=== PATIENT | female | born 1960 | race Caucasian/White ===

== ENCOUNTER 2022-01-20 11:01 | Day surgery (SDC) | payer BC ==
[2022-01-16 15:53] VITALS: BMI 27.4
[~2022-01-20 11:01] MED LIST: LACTATED RINGERS 1,000 ML IV SCH; LIDOCAINE 1% (10MG/ML) FOR IV START INTRADERMA PRN
[2022-01-20 11:29] VITALS: RESP 16; TEMP 98.9
[2022-01-20] MEDS ORDERED: MIDAZOLAM 2 MG/2 ML VIAL IVP ONE (11:50)
[2022-01-20] MEDS ORDERED: LACTATED RINGERS 1,000 ML IV ONE (11:54)
[2022-01-20] MEDS ORDERED: LIDOCAINE 1% INJ 10MG/ML (20 ML MDV) ONE (11:55)
[2022-01-20] MEDS ORDERED: PROPOFOL 10 MG/ML 20 ML VIAL IV ONE (11:55)
--- NOTE | 2022-01-20 12:04 | P.GSHP ---
History of Present Illness H&P Date: 01/20/22 Chief Complaint: GERD, abdominal pain 61-year-old female known to our service. Patient with history of prior lap band placement. Patient has a complicated history including abdominoplasty last January and then recent revision 1 week ago. Apparently she was told along the wa y that she may have an infected lap band port. Apparently the port was moved during one of these surgeries. We do not have any records to refer 2. She is on Bactrim at this time. Only mild reflux occasionally. No vomiting. Still has restriction. Patient is very worried about losing her band. Past Medical History Past Medical History: GERD/Reflux, Hyperlipidemia, Hypertension History of Any Multi-Drug Resistant Organisms: None Reported Past Surgical History: Bariatric Surgery, Bowel Resection, Breast Surgery Additional Past Surgical History / Comment(s): Breast augmentation, tummy tuck. x 2. lap band 2006 Past Anesthesia/Blood Transfusion Reactions: No Reported Reaction Past Psychological History: Anxiety Smoking Status: Former smoker Past Alcohol Use History: None Reported, Rare Additional Past Alcohol Use History / Comment(s): smoked for 2 months 30 yrs ago Past Drug Use History: None Reported - Past Family History Daughter(s) Family Medical History: Cancer Additional Family Medical History / Comment(s): Breast cancer. Medications and Allergies Home Medications Medication Instructions Recorded Confirmed Type Diltiazem HCl [Cardizem] 120 mg PO HS 01/16/22 01/20/22 History Ezetimibe [Zetia] 10 mg PO DAILY 01/16/22 01/20/22 History FLUoxetine HCL [PROzac] 10 mg PO DAILY 01/16/22 01/20/22 History Famotidine [Pepcid AC] 10 mg PO DIRECTED PRN 01/16/22 01/20/22 History Metoprolol 10 mg PO HS 01/16/22 01/20/22 History Sulfamethox-Tmp 800-160Mg [Bactrim 1 tab PO Q12HR 01/16/22 01/20/22 History DS 800-160 mg] Allergies Allergy/AdvReac Type Severity Reaction Status Date / Time hydromorphone [From Dilaudid] Allergy Nausea & Verified 01/20/22 11:24 Vomiting Penicillins Allergy Anaphylaxis Verified 01/20/22 11:24 Surgical - Exam Vital Signs Temp Pulse Resp BP Pulse Ox 98.9 F 69 16 116/59 98 01/20/22 11:25 01/20/22 11:25 01/20/22 11:25 01/20/22 11:25 01/20/22 11:25 Physical exam: General: Well-developed, well-nourished HEENT: Normocephalic, sclerae nonicteric Abdomen: Recent abdominal incision sites healing nicely, port appears to have been moved inferiorly by 5-6 cm, no erythema Extremities: No edema Neuro: Alert and oriented Assessment and Plan (1) GERD (gastroesophageal reflux disease) Narrative/Plan: Will proceed with upper endoscopy at this time. Current Visit: Yes Status: Acute Code(s): K21.9 - GASTRO-ESOPHAGEAL REFLUX DISEASE WITHOUT ESOPHAGITIS SNOMED Code(s): 385029323
--- NOTE | 2022-01-20 12:11 | P.PCN ---
Date of Procedure: 01/20/22 Procedure(s) Performed: Preoperative Dx: Abdominal pain, GERD Postoperative Dx: Minimal gastritis, distal esophagitis Procedure: EGD with Bx Anesthesia: Sedation Endoscopist: Dr. Finney Specimens: Antrum, distal esophagus Endoscopic Procedure: The patient was on the endoscopy table in the left decubitus position. The Olympus gastroscope was inserted into the oropharynx and passed under direct visualization to the region of the third portion of the duodenum. From that point the scope was slowly withdrawn inspecting all surfaces carefully. There were no neoplastic inflammatory or polypoid lesions throughout the duodenum. The pylorus was widely patent. The stomach was carefully inspected. There was minimal gastritis present. A biopsy of the antrum took place to rule out H. pylori. Retroflexion revealed a normal lap band plication. No evidence of erosion or prolapse was seen. At the distal esophagus there were a few linear erosions that were non-circumferential and extended 1.5 cm above the GE junction. Biopsies were taken. The remainder the esophagus appeared normal. The patient was then taken to the recovery room in stable condition per anesthesia guidelines. Recommendations: Await biopsy results. Resume diet. We'll try to further obtain records from recent surgeries. Follow-up bariatric center.
[2022-01-20 12:32] VITALS: BP 113/72; PULSE 72
[2022-01-20] MEDS ORDERED: ONDANSETRON ODT 4 MG TAB PO ONE (12:40)
== END 2022-01-20 12:52 | disposition home or self-care (01) ==
LOC: ORWHC2ENDO 11:01
PROVIDERS: ATTEND Surgery
DX: K29.50 Unspecified chronic gastritis without bleeding (principal); K21.00 Gastro-esophageal reflux disease with esophagitis, without bleeding; E78.5 Hyperlipidemia, unspecified; I10 Essential (primary) hypertension; Z98.84 Bariatric surgery status; Z90.49 Acquired absence of other specified parts of digestive tract; Z98.890 Other specified postprocedural states; F41.9 Anxiety disorder, unspecified; Z87.891 Personal history of nicotine dependence; Z80.3 Family history of malignant neoplasm of breast; Z79.899 Other long term (current) drug therapy; Z88.5 Allergy status to narcotic agent; Z88.0 Allergy status to penicillin
CPT/HCPCS: 88305; 88312; 43239; J2250; J2001; J2704

== ENCOUNTER → 2022-05-12 | Outpatient (CLI) | payer BC ==
--- NOTE | 2022-05-12 15:09 | P.BASOAP ---
Subjective Progress Note Date: 05/12/22 Principal diagnosis: Morbid obesity Patient returns for reevaluation. She was last seen in December. Patient had an EGD performed at that time. Recently had a CAT scan showing a 6 x 5 x 1 cm fluid collection to the left of the umbilicus near her old port site. Patient says this is been there ever since her panniculectomy and may have been getting slightly larger. No fevers. Mild discomfort there. Objective - Vital Signs Vital signs: Intake & Output 05/11/22 05/12/22 05/12/22 18:59 06:59 18:59 Weight 85.275 kg - Exam Abdomen: Soft, nondistended, seroma palpable around the port site left periumbilical region, no erythema Assessment/Plan (1) Morbid obesity Narrative/Plan: 62-year-old female with abdominal wall seroma. We will aspirate the fluid at this time at the bedside. We'll send fluid for culture. Area prepped sterilely. One percent lidocaine used to numb the skin. 18-gauge needle used to aspirate 20 mL of a cloudy serous fluid. This was sent for culture. Sterile Band-Aid applied. Plan: Date: Initial Weight: Initial BMI: Current Weight: 85.275 kg Current BMI: Type of Surgery: Total Volume in Band: Previous Volume: Volume Removed: Volume Added: Band Size:
[2022-05-12 15:16] VITALS: BP 120/86; PULSE 88; TEMP 98.5; BMI 30.3
== END ==
LOC: BARWHC3 14:12
PROVIDERS: ATTEND Surgery
DX: E66.01 Morbid (severe) obesity due to excess calories (principal); K91.872 Postprocedural seroma of a digestive system organ or structure following a digestive system procedure; Z68.30 Body mass index [BMI] 30.0-30.9, adult; Z88.5 Allergy status to narcotic agent; Z88.0 Allergy status to penicillin
CPT/HCPCS: 87070; 87075; 87205; 99213

== ENCOUNTER 2022-06-02 13:47 | Inpatient (IN) | payer BC ==
[2022-06-02] MEDS ORDERED: NALOXONE 0.4 MG/ML 1 ML VIAL IV PRN (15:44)
--- NOTE | 2022-06-02 15:54 | P.GSHP ---
History of Present Illness H&P Date: 06/02/22 Chief Complaint: Abdominal wall abscess 62-year-old female was last seen a few weeks ago in the bariatric center. Patient with history of previous abdominoplasty with a revision. 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 When she was seen last visit fluid around the l ap band port was aspirated and sent for cultures. Cultures ended up showing gram-positive cocci on the anaerobic culture. She contacted the office stating that a few days ago the fluid started leaking spontaneously through a previous incision site in the infraumbilical location. Patient has discomfort there. Drainage is a cloudy yellowish fluid. No fevers. - Review of Systems Comment: The patient denies any acute changes in vision or hearing, no dysphagia or odynophagia, no chest pain or shortness of breath, no dysuria or hematuria, no headache, no runny nose, no rectal bleeding or melena, no unexplained weight loss Past Medical History Past Medical History: GERD/Reflux, Hyperlipidemia, Hypertension History of Any Multi-Drug Resistant Organisms: None Reported Past Surgical History: Bariatric Surgery, Bowel Resection, Breast Surgery Additional Past Surgical History / Comment(s): Breast augmentation, tummy tuck. x 2. lap band 2006 Past Anesthesia/Blood Transfusion Reactions: No Reported Reaction Past Psychological History: Anxiety Smoking Status: Former smoker Past Alcohol Use History: None Reported, Rare Additional Past Alcohol Use History / Comment(s): smoked for 2 months 30 yrs ago Past Drug Use History: None Reported - Past Family History Daughter(s) Family Medical History: Cancer Additional Family Medical History / Comment(s): Breast cancer. Medications and Allergies Home Medications Medication Instructions Recorded Confirmed Type Ezetimibe [Zetia] 10 mg PO DAILY 01/16/22 06/02/22 History FLUoxetine HCL [PROzac] 10 mg PO DAILY 01/16/22 06/02/22 History Famotidine [Pepcid AC] 10 mg PO DIRECTED PRN 01/16/22 06/02/22 History Metoprolol 10 mg PO HS 01/16/22 06/02/22 History Sulfamethox-Tmp 800-160Mg [Bactrim 1 tab PO Q12HR 01/16/22 06/02/22 History DS 800-160 mg] dilTIAZem HCL [Cardizem] 120 mg PO HS 01/16/22 06/02/22 History Allergies Allergy/AdvReac Type Severity Reaction Status Date / Time hydromorphone [From Dilaudid] Allergy Nausea & Verified 01/20/22 11:24 Vomiting Penicillins Allergy Anaphylaxis Verified 01/20/22 11:24 Surgical - Exam Vital Signs Temp Pulse Resp BP 97.9 F 70 16 108/67 06/02/22 14:13 06/02/22 14:13 06/02/22 14:13 06/02/22 14:13 Physical exam: General: Well-developed, well-nourished HEENT: Normocephalic, sclerae nonicteric Abdomen: Mild tenderness at the lower abdominal wall, open wound measuring 4 x 6 mm with cloudy serous fluid, mild erythema around the wound site, this is along a previous lower midline incision, the port is present in the left mid abdominal wall several inches away from the open wound site, nondistended Extremities: No edema Neuro: Alert and oriented Assessment and Plan (1) Abdominal wall abscess Narrative/Plan: 62-year-old female with infected abdominal wall seroma/abscess. Patient with presumed infection of the lap band port as well as a result of this process. I did place a call to her plastic surgeon and currently am waiting for him to return to us. In the meanwhile will admit the patient for IV antibiotics. Tentatively plan to proceed with incision and drainage infected abdominal wall abscess tomorrow. Will remove the patient's lap band port at the time possibly through that same incision or possibly will require a counterincision. The tubing for the lap band will be reduced back into the peritoneal cavity for future use. The patient is happy with the lap band and does not want a lap and removed. We discussed possibly keeping the lap band fluid in place versus emptying the band. She would prefer to keep the fluid in place. Risks of the procedure noted to include but not limited to bleeding, infection, recurrent infection, recurrent seroma, possible infection of the lap band, open wound formation, poor healing, scarring. She understands and wishes to proceed. Current Visit: Yes Status: Acute Code(s): L02.211 - CUTANEOUS ABSCESS OF ABDOMINAL WALL SNOMED Code(s): 23739423
[2022-06-02] MEDS: HEPARIN SODIUM,PORCINE/PF 5,000 UNIT/0.5 ML SYRINGE SQ SCH (17:35)
[2022-06-02] MEDS: metroNIDAZOLE-NS PMX 500 MG in SALINE 1 100ML.BAG IVPB SCH (17:58)
[2022-06-02] MEDS: HYDROcodone/APAP 5-325MG 1 EACH TAB PO PRN ×2 (18:02→22:26)
[2022-06-02 18:42] LABS: Basophils # (A) 0.1 k/uL (0-0.2); Basophils % (A) 1 %; Eosinophils # (A) 0.4 k/uL (0-0.7); Eosinophils % (A) 7 %; HCT 42.1 % (34.0-46.0); HGB 13.2 gm/dL (11.4-16.0); Lymphocytes # (A) 1.8 k/uL (1.0-4.8); Lymphocytes % (A) 34 %; MCH 27.7 pg (25.0-35.0); MCHC 31.3 g/dL (31.0-37.0); MCV 88.5 fL (80.0-100.0); Mean Platelet Volume 8.5; Monocytes # (A) 0.4 k/uL (0-1.0); Monocytes % (A) 7 %; Neutrophils # (A) 2.5 k/uL (1.3-7.7); Neutrophils % (A) 49 %; Platelet Count 270 k/uL (150-450); RBC 4.76 m/uL (3.80-5.40); RDW 14.5 % (11.5-15.5); WBC 5.1 k/uL (3.8-10.6)
[2022-06-02 18:50] LABS: ALT 19 U/L (4-34); AST 25 U/L (14-36); African American GFR (CKD) 84 (>60 ml/min/1.73 sqM); Albumin 4.1 g/dL (3.5-5.0); Albumin/Globulin Ratio 1.6; Alkaline Phosphatase 62 U/L (38-126); Anion Gap 7 mmol/L; Blood Urea Nitrogen 23 mg/dL (7-17); Calcium 9.5 mg/dL (8.4-10.2); Carbon Dioxide 28 mmol/L (22-30); Chloride 105 mmol/L (98-107); Globulin 2.6 g/dL; Glucose 99 mg/dL (74-99); Non-African American GFR(CKD) 73 (>60 ml/min/1.73 sqM); Potassium 3.9 mmol/L (3.5-5.1); Sodium 140 mmol/L (137-145); Total Bilirubin 0.2 mg/dL (0.2-1.3); Total Protein 6.7 g/dL (6.3-8.2)
[2022-06-02] MEDS: MORPHINE SULFATE 4 MG/ML SYRINGE IVP PRN (21:45)
[2022-06-02] MEDS: D5-0.45% NACL WITH KCL 20MEQ/L 1,000 ML IV SCH (22:34)
[2022-06-03] MEDS: HEPARIN SODIUM,PORCINE/PF 5,000 UNIT/0.5 ML SYRINGE SQ SCH ×4 (00:29→23:11)
[2022-06-03] MEDS: metroNIDAZOLE-NS PMX 500 MG in SALINE 1 100ML.BAG IVPB SCH ×3 (01:50→19:07)
[2022-06-03] MEDS: MORPHINE SULFATE 4 MG/ML SYRINGE IVP PRN ×4 (01:56→20:05)
[2022-06-03] MEDS: D5-0.45% NACL WITH KCL 20MEQ/L 1,000 ML IV SCH ×3 (04:50→21:56)
[2022-06-03] MEDS: HYDROcodone/APAP 5-325MG 1 EACH TAB PO PRN ×3 (06:19→23:10)
[2022-06-03] MEDS: PANTOPRAZOLE 40 MG/10 ML VIAL IV SCH (09:17)
[2022-06-03] MEDS: METOPROLOL TARTRATE 25 MG TAB PO SCH ×2 (09:17→20:06)
[2022-06-03] MEDS ORDERED: ONDANSETRON 4 MG/2 ML VIAL IVP ONE ×2 (11:16→16:30)
[2022-06-03] MEDS ORDERED: fentaNYL (PF) 50 MCG/ML 2 ML AMP IV PRN (11:16)
[2022-06-03] MEDS: ACETAMINOPHEN TAB 325 MG TAB PO PRN (12:30)
--- NOTE | 2022-06-03 13:04 | P.CONS ---
History of Present Illness - Reason for Consult Consult date: 06/03/22 - History of Present Illness This is a 62 year old female with medical history of abdominoplasty with revision and possible recurrent seroma. Patient has history of lap band in 2007 states that she has no complications. She then had a consultation with a plastic surgeon and underwent a tummy tuck which she states was complicated by nonhealing periumbical wound which was thought to be a seroma. Patient was evaluated at the bariatric center and fluid from the seroma was aspirated and sent for cultures. She has had revision of surgey with KWAKU drain and also had breast augmentation. Patient presents with leaking from previous incision site with abdominal discomfort across the lower abdomen. She reports fever and chills at home. Denies shortnes of breath, no chest pain. Denies nausea, vomiting, no diarrhea. No dysuria. She is scheduled for I and D with Dr Finney today. Additional history includes hypertension, hyperlipidemia, gastroesophageal reflux disease. She sees a medical doctor once a year for a physical, she does not know his name off hand. She takes cardizem daily and metoprolol twice a day. Patient has no white count, stable 13.2, electrolytes are within normal limits, BUN 23, creatinine 0.85. Infectious disease has been consulted, patient is started on IV cefazolin and IV metronidazole. REVIEW OF SYSTEMS: CONSTITUTIONAL: Reports fever and chills, no malaise, no fatigue. HEENT: No recent visual problems or hearing problems. Denied any sore throat. CARDIOVASCULAR: No chest pain, orthopnea, PND, no palpitations, no syncope. PULMONARY: No shortness of breath, no cough, no hemoptysis. GASTROINTESTINAL: No diarrhea, no nausea, no vomiting. Reports abdominal pain and incisional drainage. NEUROLOGICAL: No headaches, no weakness, no numbness. HEMATOLOGICAL: Denies any bleeding or petechiae. GENITOURINARY: Denies any burning micturition, frequency, or urgency. MUSCULOSKELETAL/RHEUMATOLOGICAL: Denies any joint pain, swelling, or any muscle pain. ENDOCRINE: Denies any polyuria or polydipsia. The rest of the 14-point review of systems is negative. PHYSICAL EXAMINATION: GENERAL: The patient is alert and oriented x3, not in any acute distress. Well developed, well nourished. HEENT: Pupils are round and equally reacting to light. EOMI. No scleral icterus. No conjunctival pallor. Normocephalic, atraumatic. No pharyngeal erythema. No thyromegaly. CARDIOVASCULAR: S1 and S2 present. No murmurs, rubs, or gallops. PULMONARY: Chest is clear to auscultation, no wheezing or crackles. ABDOMEN: Soft, tender, nondistended, normoactive bowel sounds. No palpable organomegaly. Surgical Incision is open and draining, red. MUSCULOSKELETAL: No joint swelling or deformity. EXTREMITIES: No cyanosis, clubbing, or pedal edema. NEUROLOGICAL: Gross neurological examination did not reveal any focal deficits. SKIN: No rashes. Assessment and plan Assessment History abdominoplasty with revision complicated by seroma and nonhealing wound History hypertension currently normotensive History hyperlipidemia Gastroesophageal reflux maintained on pepcid History Lap Band in 2006 Remote former smoker years ago GI Prophylaxis DVT Prophylaxis as per primary Full Code Plan Resume beta panda Hold cardizem Continue IV antibiotics Continue IV fluids ID consultation Patient scheduled for I and D today Thank you for this consultation. The impression and plan of care has been dictated by Margaret Edwards, Nurse Practitioner as directed. Dr. Celestino MD I have performed a history and physical examination and medical decision making of this patient, discussed the same with the dictator, and agree with the dictators assessment and plan as written, documented as a scribe. Based on total visit time, I have performed more than 50% of this visit. Past Medical History Past Medical History: GERD/Reflux, Hyperlipidemia, Hypertension History of Any Multi-Drug Resistant Organisms: None Reported Past Surgical History: Bariatric Surgery, Bowel Resection, Breast Surgery Additional Past Surgical History / Comment(s): Breast augmentation, tummy tuck. x 2. lap band 2006 Past Anesthesia/Blood Transfusion Reactions: No Reported Reaction Smoking Status: Former smoker - Past Family History Daughter(s) Family Medical History: Cancer Additional Family Medical History / Comment(s): Breast cancer. Medications and Allergies Home Medications Medication Instructions Recorded Confirmed Type Ezetimibe [Zetia] 10 mg PO HS 01/16/22 06/02/22 History dilTIAZem HCL [Cardizem] 120 mg PO HS 01/16/22 06/02/22 History FLUoxetine HCL [PROzac] 20 mg PO BID 06/02/22 06/02/22 History Famotidine [Pepcid] 20 mg PO DAILY PRN 06/02/22 06/02/22 History Metoprolol Tartrate [Lopressor] 25 mg PO BID 06/02/22 06/02/22 History Rosuvastatin [Crestor] 10 mg PO HS 06/02/22 06/02/22 History Allergies Allergy/AdvReac Type Severity Reaction Status Date / Time hydromorphone [From Dilaudid] Allergy Nausea & Verified 06/02/22 18:35 Vomiting Penicillins Allergy Anaphylaxis Verified 06/02/22 18:35 Physical Exam Vitals: Vital Signs Temp Pulse Pulse Resp BP BP Pulse Ox 06/03/22 07:31 97.7 F 67 16 114/64 99 06/03/22 02:00 97.9 F 91 16 107/73 97 06/02/22 20:10 97.9 F 66 16 109/71 97 06/02/22 20:00 66 16 06/02/22 17:51 98.2 F 75 16 126/75 97 06/02/22 14:13 97.9 F 70 16 108/67 Intake and Output 06/02/22 06/03/22 06/03/22 22:59 06:59 14:59 Other: Voiding Method Toilet # Voids 2 Weight 85.275 kg Results CBC & Chem 7: 06/02/22 18:25 06/02/22 18:25 Labs: Abnormal Lab Results - Last 24 Hours (Table) 06/02/22 Range/Units 18:25 BUN 23 H (7-17) mg/dL Assessment and Plan Time with Patient: Less than 30
[2022-06-03] MEDS: LACTATED RINGERS 1,000 ML IV SCH (14:06)
[2022-06-03] MEDS ORDERED: LACTATED RINGERS 1,000 ML IV ONE ×3 (14:23→17:54)
[2022-06-03] MEDS ORDERED: SCOPOLAMINE 1 MG/72 HR PATCH TRANSDERM ONE (16:30)
[2022-06-03] MEDS ORDERED: fentaNYL (PF) 50 MCG/ML 2 ML AMP IVP ONE (16:30)
[2022-06-03] MEDS ORDERED: DEXAMETHASONE SOD PHOSPHATE 4 MG/ML 1 ML VIAL IVP ONE (16:30)
[2022-06-03] MEDS ORDERED: fentaNYL (PF) 50 MCG/ML 2 ML AMP ONE (16:53)
[2022-06-03] MEDS ORDERED: PROPOFOL 10 MG/ML 20 ML VIAL IV ONE (16:53)
[2022-06-03] MEDS ORDERED: ePHEDrine 50 MG/ML 1 ML VIAL ONE (16:53)
[2022-06-03] MEDS ORDERED: PHENYLEPHRINE-0.9% NACL SYG 1,000 MCG/10 ML SYRINGE ONE (16:53)
[2022-06-03] MEDS ORDERED: LIDOCAINE 2% INJ 20 MG/ML (2 ML VIAL) ONE (16:53)
[2022-06-03] MEDS ORDERED: ROCURONIUM 10 MG/ML (5 ML VIAL) IV ONE (16:53)
[2022-06-03] MEDS ORDERED: SUCCINYLCHOLINE CHLORIDE 200 MG/10 ML VIAL IV ONE (16:53)
[2022-06-03] MEDS ORDERED: MIDAZOLAM 2 MG/2 ML VIAL ONE (16:53)
--- NOTE | 2022-06-03 17:46 | P.OP ---
Date of Procedure: 06/03/22 Procedure(s) Performed: PREOPERATIVE DIAGNOSIS: Abdominal wall abscess POSTOPERATIVE DIAGNOSIS: Same PROCEDURE: Incision and drainage abdominal wall abscess with removal of lap band port SURGEON: Sharmin EBL: 10 mL ANESTHESIA: Gen. COMPLICATIONS: None OPERATIVE PROCEDURE: Abdomen was prepped and draped sterilely. The patient was noted to have a small Prolene stitch coming through the skin of the umbilicus which was removed without difficulty. The previous lower midline incision was re-incised removing a small portion of skin. Entrance into the abscess cavity took place. Necrotic fat was evacuated. Cultures were taken. The abscess cavity itself spanned a distance of approximately 10 x 8 cm. This was smaller than expected. The port was floating within the abscess cavity. Initially I placed 2-0 Prolene sutures on the tubing. As I cut the tubing however some of the saline fluid was noted to escape from the tubing. At that time to 5 mm clips were applied to the tubing and the excess tubing was removed. The tubing was then prepped with Betadine. It was then reduced back into the peritoneal cavity bluntly. The abscess cavity was thoroughly irrigated with saline. I then packed the wound with 1 inch iodoform gauze. Sterile dressings were applied. DISPOSITION: Stable to recovery room
--- NOTE | 2022-06-03 19:50 | P.CONS ---
History of Present Illness - Reason for Consult Consult date: 06/03/22 - History of Present Illness Patient is a 62-year-old female with a past medical history significant for morbid obesity in this patient who did have a history of abdominoplasty with revision with reconstructive surgery done by plastic surgery and apparently movement of the Lap-Band port patient subsequently developing seroma/fluid around the Lap-Band port in the lower abdominal area that has been aspirated by surgery and the culture grew anaerobic gram-positive cocci patient subsequently was reevaluated by general surgery yesterday and the patient can complaining of pain to the lower abdominal area describing it is more of a dull aching at times sharp 6-7 out of 10 no radiation with associated swelling re dness and some drainage which is mostly cloudy yellow fluid patient subsequently has been admitted to hospital for surgical aspiration of the area and drainage which is scheduled for this afternoon the patient was started on cefazolin and Flagyl because of her penicillin allergy infectious disease was consulted for further management of antibiotic therapy Past Medical History Past Medical History: GERD/Reflux, Hyperlipidemia, Hypertension History of Any Multi-Drug Resistant Organisms: None Reported Past Surgical History: Bariatric Surgery, Bowel Resection, Breast Surgery Additional Past Surgical History / Comment(s): Breast augmentation, tummy tuck. x 2. lap band 2007 Past Anesthesia/Blood Transfusion Reactions: No Reported Reaction Smoking Status: Former smoker - Past Family History Daughter(s) Family Medical History: Cancer Additional Family Medical History / Comment(s): Breast cancer. Medications and Allergies Home Medications Medication Instructions Recorded Confirmed Type Ezetimibe [Zetia] 10 mg PO HS 01/16/22 06/02/22 History dilTIAZem HCL [Cardizem] 120 mg PO HS 01/16/22 06/02/22 History FLUoxetine HCL [PROzac] 20 mg PO BID 06/02/22 06/02/22 History Famotidine [Pepcid] 20 mg PO DAILY PRN 06/02/22 06/02/22 History Metoprolol Tartrate [Lopressor] 25 mg PO BID 06/02/22 06/02/22 History Rosuvastatin [Crestor] 10 mg PO HS 06/02/22 06/02/22 History Allergies Allergy/AdvReac Type Severity Reaction Status Date / Time hydromorphone [From Dilaudid] Allergy Nausea & Verified 06/03/22 14:21 Vomiting Penicillins Allergy Anaphylaxis Verified 06/03/22 14:21 Physical Exam Vitals: Vital Signs Temp Pulse Pulse Resp BP BP Pulse Ox 06/03/22 07:31 97.7 F 67 16 114/64 99 06/03/22 02:00 97.9 F 91 16 107/73 97 06/02/22 20:10 97.9 F 66 16 109/71 97 06/02/22 20:00 66 16 06/02/22 17:51 98.2 F 75 16 126/75 97 06/02/22 14:13 97.9 F 70 16 108/67 Intake and Output 06/02/22 06/03/22 06/03/22 22:59 06:59 14:59 Other: Voiding Method Toilet # Voids 2 Weight 85.275 kg Results CBC & Chem 7: 06/02/22 18:25 06/02/22 18:25 Labs: Abnormal Lab Results - Last 24 Hours (Table) 06/02/22 Range/Units 18:25 BUN 23 H (7-17) mg/dL Assessment and Plan Plan: 1patient with lower abdominal pain and swelling around the Lap-Band port site with concern for possible infected seroma/abscess with outpatient aspirate culture positive for anaerobic gram-positive. 2penicillin allergy regimen number of antibiotics safe to use. 3patient to continue cefazolin and Flagyl while waiting for the drainage of the area and deep cultures. We will follow on clinical condition and cultures to further adjust medication if needed Thank you for this consultation will follow this patient along with you
[2022-06-03] MEDS: EZETIMIBE 10 MG TAB PO SCH (20:06)
[2022-06-03] MEDS: ATORVASTATIN 20 MG TAB PO SCH (20:06)
[2022-06-04] MEDS: MORPHINE SULFATE 4 MG/ML SYRINGE IVP PRN ×8 (00:23→23:16)
[2022-06-04] MEDS: metroNIDAZOLE-NS PMX 500 MG in SALINE 1 100ML.BAG IVPB SCH ×3 (01:32→17:15)
[2022-06-04] MEDS: HYDROcodone/APAP 5-325MG 1 EACH TAB PO PRN ×6 (04:26→23:55)
[2022-06-04] MEDS: PANTOPRAZOLE 40 MG/10 ML VIAL IV SCH (08:34)
[2022-06-04] MEDS: D5-0.45% NACL WITH KCL 20MEQ/L 1,000 ML IV SCH ×2 (08:35→20:26)
[2022-06-04] MEDS: HEPARIN SODIUM,PORCINE/PF 5,000 UNIT/0.5 ML SYRINGE SQ SCH ×3 (09:18→23:22)
[2022-06-04] MEDS: METOPROLOL TARTRATE 25 MG TAB PO SCH (09:18)
[2022-06-04] MEDS: KETOROLAC 15 MG/ML 1 ML VIAL IVP SCH ×3 (09:50→23:55)
[2022-06-04] MEDS: LACTATED RINGERS 1,000 ML IV SCH (10:12)
--- NOTE | 2022-06-04 11:02 | P.PN ---
Subjective Progress Note Date: 06/04/22 CHIEF COMPLAINT: Abdominal wall abscess HISTORY OF PRESENT ILLNESS: Postop day #1 status post incision and drainage of abdominal wall abscess with removal of lap band port. Patient is complaining of abdominal pain. She rates her pain about a 5 out of 10. She is requiring the morphine and Bison scheduled. She denies any nausea or vomiting. She is having flatus. She did tolerate regular diet. Afebrile. BP 93/58. Cultures pending. CBC pending. Patient seen by ID service PHYSICAL EXAM: VITAL SIGNS: Reviewed. GENERAL: Well-developed in no acute distress. HEENT: No sclera icterus. Extraocular movements grossly intact. Moist buccal mucosa. Head is atraumatic, normocephalic. ABDOMEN: Soft. Abdominal dressing saturated at the distal aspect of the dressing. Patient is tenderness to palpation of the abdomen. NEUROLOGIC: Alert and oriented. Cranial nerves II through XII grossly intact. ASSESSMENT: 1. Abdominal wall abscess status post incision and drainage of abdominal wall abscess with removal of lap band port PLAN: -Add Toradol to help with pain control -Continue the Bison and IV morphine -Continue antibiotics -Continue supportive care -Change abdominal dressing. Apply Aquacel Silver rope. Continue local wound care -GI prophylaxis Protonix and DVT prophylaxis subcu heparin Physician Account Collector note has been reviewed by physician. Signing provider agrees with the documented findings, assessment, and plan of care. I have personally seen and examined the patient, reviewed the KNUCKLER /PAs history, exam and MDM and agree with the assessment and plan as written. Based on total visit time, I have performed more than 50% of the visit. As above: Patient doing better as the day goes on. Wound is still packed. We'll shower. Change dressing. Follow cultures. Continue analgesics. Probable discharge tomorrow. Objective - Vital Signs Vital signs: Vital Signs Temp 98 F 06/04/22 09:00 Pulse 67 06/04/22 09:37 Resp 17 06/04/22 09:00 BP 93/58 06/04/22 09:37 Pulse Ox 95 06/04/22 00:22 FiO2 Intake & Output 06/03/22 06/04/22 06/04/22 18:59 06:59 18:59 Intake Total 1250 590 Output Total 10 2150 Balance 1240 -1560 Intake: IV 1250 Oral 590 Output: Urine 2150 Estimated Blood Loss 10 Other: Voiding Method Toilet # Voids 3 4 - Labs CBC & Chem 7: 06/04/22 10:46 06/02/22 18:25 Labs: Microbiology - Last 24 Hours (Table) 06/03/22 17:35 Fungal Culture - Preliminary Abdomen 06/03/22 17:35 Fungal Culture - Preliminary Abdomen 06/03/22 17:35 Wound Culture - Preliminary Abdomen 06/03/22 17:35 Anaerobic Culture - Preliminary Abdomen 06/03/22 17:35 Wound Culture - Preliminary Abdomen 06/03/22 17:35 Anaerobic Culture - Preliminary Abdomen
[2022-06-04 11:21] LABS: Basophils % (A) 0 %; Eosinophils % (A) 0 %; HCT 35.2 % (34.0-46.0); HGB 11.1 gm/dL (11.4-16.0); Hypochromasia Moderate; Lymphocytes # (A) 0.8 k/uL (1.0-4.8); Lymphocytes % (A) 8 %; MCH 28.8 pg (25.0-35.0); MCHC 31.7 g/dL (31.0-37.0); Mean Platelet Volume 9.1; Monocytes # (A) 0.4 k/uL (0-1.0); Monocytes % (A) 4 %; Neutrophils # (A) 8.4 k/uL (1.3-7.7); Neutrophils % (A) 86 %; Platelet Count 258 k/uL (150-450); RBC 3.86 m/uL (3.80-5.40); RDW 14.8 % (11.5-15.5); WBC 9.8 k/uL (3.8-10.6)
--- NOTE | 2022-06-04 15:42 | P.PN ---
Subjective Progress Note Date: 06/04/22 This is a 62 year old female with medical history of abdominoplasty with revision and possible recurrent seroma. Patient has history of lap band in 2006 states that she has no complications. She then had a consultation with a plastic surgeon and underwent a tummy tuck which she states was complicated by nonhealing periumbical wound which was thought to be a seroma. Patient was evaluated at the bariatric center and fluid from the seroma was aspirated and sent for cultures. She has had revision of surgey with KWAKU drain and also had breast augmentation. Patient presents with leaking from previous incision site with abdominal discomfort across the lower abdomen. She reports fever and chills at home. Denies shortnes of breath, no chest pain. Denies nausea, vomiting, no diarrhea. No dysuria. She is scheduled for I and D with Dr Finney today. Additional history includes hypertension, hyperlipidemia, gastroesophageal reflux disease. She sees a medical doctor once a year for a physical, she does not know his name off hand. She takes cardizem daily and metoprolol twice a day. Patient has no white count, stable 13.2, electrolytes are within normal limits, BUN 23, creatinine 0.85. Infectious disease has been consulted, patient is started on IV cefazolin and IV metronidazole. 06/04/2022 Patient is postop day #1 incision and drainage and removal of lap band port with Dr Finney. She does have abdominal pain today rating a 7/10, and does have some mild nausea. She is tolerating diet ok. States she is not passing gas, no BM. There is show sanguineous shadowing on surgical dressing which was reinforced by nursing. Wound cultures are pending and she continues on empiric coverage with IV flagyl, cefazolin. Infectious disease is following patient. Blood pressure on lower side 95/58, cardizem continues on hold. We will decrease metoprolol to 12.5 BID. Review of Systems Constitutional: Denied any fatigue denied any fever. Cardio vascular: denied any chest pain, palpitations Gastrointestinal: Reports abdominal pain and nausea, no BM Pulmonary: Denied any shortness of breath cough Neurologic denied any new focal deficits All inpatient medications were reviewed and appropriate changes in these medications as dictated in the interval history and assessment and plan. PHYSICAL EXAMINATION: GENERAL: The patient is alert and oriented x3, not in any acute distress. Well developed, well nourished. HEENT: Pupils are round and equally reacting to light. EOMI. No scleral icterus. No conjunctival pallor. Normocephalic, atraumatic. No pharyngeal erythema. No thyromegaly. CARDIOVASCULAR: S1 and S2 present. No murmurs, rubs, or gallops. PULMONARY: Chest is clear to auscultation, no wheezing or crackles. ABDOMEN: Soft, tender, nondistended, hypoactive bowel sounds. No palpable organomegaly. Post surgical dressing in place. MUSCULOSKELETAL: No joint swelling or deformity. EXTREMITIES: No cyanosis, clubbing, or pedal edema. NEUROLOGICAL: Gross neurological examination did not reveal any focal deficits. SKIN: No rashes. Assessment and plan Assessment History abdominoplasty with revision complicated by seroma and nonhealing wound Status post I & D abdominal abscess with cultures pending History hypertension blood pressure 90s systolic today History hyperlipidemia Gastroesophageal reflux maintained on pepcid History Lap Band in 2006 Remote former smoker years ago GI Prophylaxis DVT Prophylaxis as per primary Full Code Plan Decrease betablocker Continue to hold cardizem Continue IV antibiotics Cultures pending Continue IV fluids ID consultation Pain management Thank you for this consultation. The impression and plan of care has been dictated by Margaret Edwards Nurse Practitioner as directed. Dr. Celestino MD I have performed a history and physical examination and medical decision making of this patient, discussed the same with the dictator, and agree with the dictators assessment and plan as written, documented as a scribe. Based on total visit time, I have performed more than 50% of this visit. Objective - Vital Signs Vital signs: Vital Signs Temp 98.3 F 06/04/22 15:23 Pulse 54 L 06/04/22 15:23 Resp 16 06/04/22 15:23 BP 95/58 06/04/22 15:23 Pulse Ox 94 L 06/04/22 15:23 FiO2 Intake & Output 06/03/22 06/04/22 06/04/22 18:59 06:59 18:59 Intake Total 1250 590 Output Total 10 2150 Balance 1240 -1560 Intake: IV 1250 Oral 590 Output: Urine 2150 Estimated Blood Loss 10 Other: Voiding Method Toilet # Voids 3 4 - Labs CBC & Chem 7: 06/04/22 10:46 06/02/22 18:25 Labs: Abnormal Lab Results - Last 24 Hours (Table) 06/04/22 Range/Units 10:46 Hgb 11.1 L (11.4-16.0) gm/dL Neutrophils # 8.4 H (1.3-7.7) k/uL Lymphocytes # 0.8 L (1.0-4.8) k/uL Microbiology - Last 24 Hours (Table) 06/03/22 17:35 Fungal Culture - Preliminary Abdomen 06/03/22 17:35 Fungal Culture - Preliminary Abdomen 06/03/22 17:35 Wound Culture - Preliminary Abdomen 06/03/22 17:35 Anaerobic Culture - Preliminary Abdomen 06/03/22 17:35 Wound Culture - Preliminary Abdomen 06/03/22 17:35 Anaerobic Culture - Preliminary Abdomen Assessment and Plan Time with Patient: Less than 30
[2022-06-04] MEDS: METOPROLOL TARTRATE 12.5 MG TAB PO SCH (23:21)
[2022-06-04] MEDS: ONDANSETRON 4 MG/2 ML VIAL IVP PRN (23:21)
[2022-06-04] MEDS: EZETIMIBE 10 MG TAB PO SCH (23:21)
[2022-06-04] MEDS: ATORVASTATIN 20 MG TAB PO SCH (23:21)
[2022-06-05] MEDS: MORPHINE SULFATE 4 MG/ML SYRINGE IVP PRN ×7 (02:14→22:45)
[2022-06-05] MEDS: HYDROcodone/APAP 5-325MG 1 EACH TAB PO PRN ×4 (04:07→20:07)
[2022-06-05] MEDS: KETOROLAC 15 MG/ML 1 ML VIAL IVP SCH ×4 (04:08→19:55)
[2022-06-05] MEDS: metroNIDAZOLE-NS PMX 500 MG in SALINE 1 100ML.BAG IVPB SCH ×3 (04:08→19:56)
[2022-06-05] MEDS: D5-0.45% NACL WITH KCL 20MEQ/L 1,000 ML IV SCH ×3 (04:14→19:57)
[2022-06-05] MEDS: PANTOPRAZOLE 40 MG/10 ML VIAL IV SCH (08:19)
[2022-06-05] MEDS: HEPARIN SODIUM,PORCINE/PF 5,000 UNIT/0.5 ML SYRINGE SQ SCH ×3 (08:19→22:46)
[2022-06-05] MEDS: METOPROLOL TARTRATE 12.5 MG TAB PO SCH ×2 (08:19→19:55)
--- NOTE | 2022-06-05 11:23 | P.PN ---
Subjective Progress Note Date: 06/05/22 CHIEF COMPLAINT: Abdominal wall abscess HISTORY OF PRESENT ILLNESS: Postop day #2 status post incision and drainage of abdominal wall abscess with removal of lap band port. Patient does complain of abdominal pain. She reports the pain is a little less than yesterday rates at 4 out of 10. She is still requiring the IV morphine. Patient did have a lot of pain with the dressing change yesterday. She did take a shower. She is tolerating diet. Afebrile. WBC is 9.8 Hgb 11.1 platelets 258. Cultures are pending PHYSICAL EXAM: VITAL SIGNS: Reviewed. GENERAL: Well-developed in no acute distress. HEENT: No sclera icterus. Extraocular movements grossly intact. Moist buccal mucosa. Head is atraumatic, normocephalic. ABDOMEN: Soft. Abdominal wound edging clean dry and intact. Dressing with Surgicel and a strange. Tenderness to palpation around the wound. NEUROLOGIC: Alert and oriented. Cranial nerves II through XII grossly intact. ASSESSMENT: 1. Abdominal wall abscess status post incision and drainage of abdominal wall abscess with removal of lap band port PLAN: -Continue local wound care. We'll have packing changed today. -Continue pain management -Continue antibiotics -Continue supportive care -production service manager arranging home care -GI prophylaxis Protonix and DVT prophylaxis subcu heparin Physician Venetian Blind Washer note has been reviewed by physician. Signing provider agrees with the documented findings, assessment, and plan of care. I have personally seen and examined the patient, reviewed the PSYCH ASSISTANT /PAs history, exam and MDM and agree with the assessment and plan as written. Based on total visit time, I have performed more than 50% of the visit. As above: Patient having discomfort at the wound site. Slowly improving. Wound VAC was placed today. Labs noted. Cultures negative thus far. Continue wound VAC therapy. Continue antibiotics. Objective - Vital Signs Vital signs: Vital Signs Temp 97.8 F 06/05/22 07:33 Pulse 67 06/05/22 07:33 Resp 18 06/05/22 07:33 BP 112/73 06/05/22 07:33 Pulse Ox 94 L 06/05/22 07:33 FiO2 Intake & Output 06/04/22 06/05/22 06/05/22 18:59 06:59 18:59 Intake Total 1300 Output Total 300 Balance -300 1300 Intake: Intake, IV Titration 1300 Amount D5-0.45% NaCl with KCl 1200 20Meq/l 1,000 ml @ 100 mls/hr IV .Q10H [facility] Rx#: [id number] metroNIDAZOLE-NS PMX 500 100 mg In Saline 1 100ml.bag @ 100 mls/hr IVPB Q8H [facility] Rx#:[id number] Output: Urine 300 Other: # Voids 2 # Bowel Movements 0 - Labs CBC & Chem 7: 06/04/22 10:46 06/05/22 08:34 Labs: Abnormal Lab Results - Last 24 Hours (Table) 06/04/22 Range/Units 10:46 Hgb 11.1 L (11.4-16.0) gm/dL Neutrophils # 8.4 H (1.3-7.7) k/uL Lymphocytes # 0.8 L (1.0-4.8) k/uL Microbiology - Last 24 Hours (Table) 06/03/22 17:35 Gram Stain - Preliminary Abdomen Wound Culture - Preliminary 06/03/22 17:35 Gram Stain - Preliminary Abdomen Wound Culture - Preliminary
[2022-06-05 12:00] LABS: African American GFR (CKD) 67.3 (60.0-200.0); Anion Gap 8.5 mmol/L (10.00-18.00); BUN/Creat Ratio 25.88 Ratio (12.00-20.00); Blood Urea Nitrogen 26.4 mg/dL (9.0-27.0); Calcium 8.9 mg/dL (8.7-10.3); Carbon Dioxide 24.5 mmol/L (20.0-27.5); Non-African American GFR(CKD) 58.1 (60.0-200.0)
[2022-06-05] MEDS: LACTATED RINGERS 1,000 ML IV SCH (12:40)
--- NOTE | 2022-06-05 13:08 | P.PN ---
Subjective Progress Note Date: 06/04/22 Principal diagnosis: Abdominal wall abscess and infected lap band port Patient is a 62 year old female presenting to the hospital with lower abdominal wall abscess and concern for infected port which has been removed 06/03/2022 along with the cultures are currently pending. On today's evaluation that is 06/04/2022, patient denies having any fever or chills, still complaining of lower abdominal pain there's some improvement the pain medication, denies any chest pain or shortness of breath or cough no nausea no vomiting and no diarrhea Objective - Vital Signs Vital signs: Vital Signs Temp 98 F 06/04/22 09:00 Pulse 67 06/04/22 09:37 Resp 17 06/04/22 09:00 BP 93/58 06/04/22 09:37 Pulse Ox 95 06/04/22 00:22 FiO2 Intake & Output 06/03/22 06/04/22 06/04/22 18:59 06:59 18:59 Intake Total 1250 590 Output Total 10 2150 Balance 1240 -1560 Intake: IV 1250 Oral 590 Output: Urine 2150 Estimated Blood Loss 10 Other: Voiding Method Toilet # Voids 3 4 - Exam GENERAL DESCRIPTION: An middle-aged female lying in bed in no distress RESPIRATORY SYSTEM: Unlabored breathing , decreased breath sounds at bases HEART: S1 S2 regular rate and rhythm , ABDOMEN: Soft , no abdominal wound is currently dressed, minimal tenderness EXTREMITIES: No edema feet - Labs CBC & Chem 7: 06/04/22 10:46 06/05/22 08:34 Labs: Microbiology - Last 24 Hours (Table) 06/03/22 17:35 Fungal Culture - Preliminary Abdomen 06/03/22 17:35 Fungal Culture - Preliminary Abdomen 06/03/22 17:35 Wound Culture - Preliminary Abdomen 06/03/22 17:35 Anaerobic Culture - Preliminary Abdomen 06/03/22 17:35 Wound Culture - Preliminary Abdomen 06/03/22 17:35 Anaerobic Culture - Preliminary Abdomen Assessment and Plan (1) Abdominal wall abscess Current Visit: Yes Status: Acute Code(s): L02.211 - CUTANEOUS ABSCESS OF ABDOMINAL WALL SNOMED Code(s): 21243923 Plan: 1patient with lower abdominal pain and swelling around the Lap-Band port site with concern for possible infected seroma/abscess with outpatient aspirate culture positive for anaerobic gram-positive. 2penicillin allergy regimen number of antibiotics safe to use. 3patient is status post drainage of the abscess and removal of the infected port, patient to continue cefazolin and Flagyl while waiting for the drainage of the area and deep cultures. Time with Patient: Less than 30
--- NOTE | 2022-06-05 13:09 | P.PN ---
Subjective Progress Note Date: 06/05/22 Principal diagnosis: Abdominal wall abscess and infected lap band port Patient is a 62 year old female presenting to the hospital with lower abdominal wall abscess and concern for infected port which has been removed 06/03/2022 along with the cultures are currently pending. On today's evaluation that is 06/05/2022, patient remains to be afebrile, the patient did have more lower abdominal pain at the time of dressing changes yesterday, the patient denies any chest pain or shortness of breath or cough no nausea no vomiting and no diarrhea Objective - Vital Signs Vital signs: Vital Signs Temp 97.8 F 06/05/22 07:33 Pulse 67 06/05/22 07:33 Resp 18 06/05/22 07:33 BP 112/73 06/05/22 07:33 Pulse Ox 94 L 06/05/22 07:33 FiO2 Intake & Output 06/04/22 06/05/22 06/05/22 18:59 06:59 18:59 Intake Total 1300 Output Total 300 Balance -300 1300 Intake: Intake, IV Titration 1300 Amount D5-0.45% NaCl with KCl 1200 20Meq/l 1,000 ml @ 100 mls/hr IV .Q10H [facility] Rx#: [id number] metroNIDAZOLE-NS PMX 500 100 mg In Saline 1 100ml.bag @ 100 mls/hr IVPB Q8H [facility] Rx#:[id number] Output: Urine 300 Other: # Voids 2 # Bowel Movements 0 - Exam GENERAL DESCRIPTION: An middle-aged female lying in bed in no distress RESPIRATORY SYSTEM: Unlabored breathing , decreased breath sounds at bases HEART: S1 S2 regular rate and rhythm , ABDOMEN: Soft , no abdominal wound is currently dressed no drainage on the dressing EXTREMITIES: No edema feet - Labs CBC & Chem 7: 06/04/22 10:46 06/05/22 08:34 Labs: Microbiology - Last 24 Hours (Table) 06/03/22 17:35 Gram Stain - Preliminary Abdomen Wound Culture - Preliminary 06/03/22 17:35 Gram Stain - Preliminary Abdomen Wound Culture - Preliminary Assessment and Plan (1) Abdominal wall abscess Current Visit: Yes Status: Acute Code(s): L02.211 - CUTANEOUS ABSCESS OF ABDOMINAL WALL SNOMED Code(s): 74352059 Plan: 1patient with lower abdominal pain and swelling around the Lap-Band port site with concern for possible infected seroma/abscess with outpatient aspirate culture positive for anaerobic gram-positive. 2penicillin allergy regimen number of antibiotics safe to use. 3patient is status post drainage of the abscess and removal of the infected port, cultures are currently pending, patient to continue cefazolin and Flagyl, depending upon the depth of this wound may benefit from a wound VAC Time with Patient: Less than 30
--- NOTE | 2022-06-05 14:03 | P.PN ---
Subjective Progress Note Date: 06/05/22 This is a 62 year old female with medical history of abdominoplasty with revision and possible recurrent seroma. Patient has history of lap band in 2007 states that she has no complications. She then had a consultation with a plastic surgeon and underwent a tummy tuck which she states was complicated by nonhealing periumbical wound which was thought to be a seroma. Patient was evaluated at the bariatric center and fluid from the seroma was aspirated and sent for cultures. She has had revision of surgey with KWAKU drain and also had breast augmentation. Patient presents with leaking from previous incision site with abdominal discomfort across the lower abdomen. She reports fever and chills at home. Denies shortnes of breath, no chest pain. Denies nausea, vomiting, no diarrhea. No dysuria. She is scheduled for I and D with Dr Finney today. Additional history includes hypertension, hyperlipidemia, gastroesophageal reflux disease. She sees a medical doctor once a year for a physical, she does not know his name off hand. She takes cardizem daily and metoprolol twice a day. Patient has no white count, stable 13.2, electrolytes are within normal limits, BUN 23, creatinine 0.85. Infectious disease has been consulted, patient is started on IV cefazolin and IV metronidazole. 06/04/2022 Patient is postop day #1 incision and drainage and removal of lap band port with Dr Finney. She does have abdominal pain today rating a 7/10, and does have some mild nausea. She is tolerating diet ok. States she is not passing gas, no BM. There is show sanguineous shadowing on surgical dressing which was reinforced by nursing. Wound cultures are pending and she continues on empiric coverage with IV flagyl, cefazolin. Infectious disease is following patient. Blood pressure on lower side 95/58, cardizem continues on hold. We will decrease metoprolol to 12.5 BID. 06/05/2022 Patient is status post day #2 I and D of abdominal abscess. She continues with wound packing, she is having significant pain and is nervous about discharge home. She is worried about her pain management and the discomfort from wound packing. She did developed a cough overnight with sore throat. States she did have some yellow sputum. She is using incentive spirometer and has been up ambulating in hallway. Potassium is 5.0 today would recommend adjusting fluids and removing the potassium component. She denies passing gas, no BM. Remains afebrile, 95% on room air and lungs are clear. Wound cultures are pending, she is being followed by infectious disease. Continues on antibiotics in the form of IV cefazole and IV metronidazole. Review of Systems Constitutional: Denied any fatigue denied any fever. Cardio vascular: denied any chest pain, palpitations Gastrointestinal: Reports abdominal pain and nausea, no BM Pulmonary: Denied any shortness of breath cough Neurologic denied any new focal deficits All inpatient medications were reviewed and appropriate changes in these medications as dictated in the interval history and assessment and plan. PHYSICAL EXAMINATION: GENERAL: The patient is alert and oriented x3, not in any acute distress. Well developed, well nourished. HEENT: Pupils are round and equally reacting to light. EOMI. No scleral icterus. No conjunctival pallor. Normocephalic, atraumatic. No pharyngeal erythema. No thyromegaly. CARDIOVASCULAR: S1 and S2 present. No murmurs, rubs, or gallops. PULMONARY: Chest is clear to auscultation, no wheezing or crackles. ABDOMEN: Soft, tender, nondistended, hypoactive bowel sounds. No palpable organomegaly. Post surgical dressing in place. MUSCULOSKELETAL: No joint swelling or deformity. EXTREMITIES: No cyanosis, clubbing, or pedal edema. NEUROLOGICAL: Gross neurological examination did not reveal any focal deficits. SKIN: No rashes. Assessment and plan Assessment History abdominoplasty with revision complicated by seroma and nonhealing wound Status post I & D abdominal abscess with cultures pending History hypertension blood pressure 90s systolic today History hyperlipidemia Gastroesophageal reflux maintained on pepcid History Lap Band in 2006 Remote former smoker years ago GI Prophylaxis DVT Prophylaxis as per primary Full Code Plan Adjust IV fluids Continue on decreased dose of betablocker Continue to hold cardizem Continue IV antibiotics Cultures pending Continue IV fluids ID consultation Pain management Thank you for this consultation. The impression and plan of care has been dictated by Margaret Edwards, Nurse Practitioner as directed. Dr. Celestino MD I have performed a history and physical examination and medical decision making of this patient, discussed the same with the dictator, and agree with the dictators assessment and plan as written, documented as a scribe. Based on total visit time, I have performed more than 50% of this visit. Objective - Vital Signs Vital signs: Vital Signs Temp 97.8 F 06/05/22 07:33 Pulse 67 06/05/22 07:33 Resp 18 06/05/22 07:33 BP 112/73 06/05/22 07:33 Pulse Ox 94 L 06/05/22 07:33 FiO2 Intake & Output 06/04/22 06/05/22 06/05/22 18:59 06:59 18:59 Intake Total 1300 Output Total 300 Balance -300 1300 Intake: Intake, IV Titration 1300 Amount D5-0.45% NaCl with KCl 1200 20Meq/l 1,000 ml @ 100 mls/hr IV .Q10H [facility] Rx#: [id number] metroNIDAZOLE-NS PMX 500 100 mg In Saline 1 100ml.bag @ 100 mls/hr IVPB Q8H [facility] Rx#:[id number] Output: Urine 300 Other: # Voids 2 # Bowel Movements 0 - Labs CBC & Chem 7: 06/04/22 10:46 06/05/22 08:34 Labs: Abnormal Lab Results - Last 24 Hours (Table) 06/05/22 Range/Units 08:34 Anion Gap 8.50 L (10.00-18.00) mmol/L Est GFR (CKD-EPI)NonAf 58.1 L (60.0-200.0) BUN/Creatinine Ratio 25.88 H (12.00-20.00) Ratio Microbiology - Last 24 Hours (Table) 06/03/22 17:35 Gram Stain - Preliminary Abdomen Wound Culture - Preliminary 06/03/22 17:35 Gram Stain - Preliminary Abdomen Wound Culture - Preliminary Assessment and Plan Time with Patient: Less than 30
[2022-06-05] MEDS ORDERED: BENZOCAINE SPRAY 1 CAN MUCOUS MEM PRN (16:04)
[2022-06-05] MEDS: BENZOCAINE/MENTHOL LOZENG 1 EACH LOZENGE MUCOUS MEM PRN (16:06)
[2022-06-05] MEDS: EZETIMIBE 10 MG TAB PO SCH (19:54)
[2022-06-05] MEDS: ATORVASTATIN 20 MG TAB PO SCH (19:55)
[2022-06-06] MEDS: HYDROcodone/APAP 5-325MG 1 EACH TAB PO PRN ×3 (00:37→17:39)
[2022-06-06] MEDS: MORPHINE SULFATE 4 MG/ML SYRINGE IVP PRN ×5 (02:56→23:08)
[2022-06-06] MEDS: metroNIDAZOLE-NS PMX 500 MG in SALINE 1 100ML.BAG IVPB SCH ×3 (02:57→17:30)
[2022-06-06] MEDS: KETOROLAC 15 MG/ML 1 ML VIAL IVP SCH ×4 (04:10→21:50)
[2022-06-06] MEDS: METOPROLOL TARTRATE 12.5 MG TAB PO SCH ×2 (10:27→21:50)
[2022-06-06] MEDS: HEPARIN SODIUM,PORCINE/PF 5,000 UNIT/0.5 ML SYRINGE SQ SCH ×3 (10:27→23:13)
[2022-06-06] MEDS: PANTOPRAZOLE 40 MG/10 ML VIAL IV SCH (10:27)
--- NOTE | 2022-06-06 10:35 | P.PN ---
Subjective Progress Note Date: 06/06/22 Principal diagnosis: Abdominal wall abscess Patient says she feels better today. Her sore throat is improved. Covid did come back negative. She is afebrile. No tachycardia. No labs today. She is tolerating liquid diet Objective - Vital Signs Vital signs: Vital Signs Temp 97.6 F 06/06/22 08:00 Pulse 59 L 06/06/22 08:00 Resp 16 06/06/22 08:00 BP 96/62 06/06/22 08:00 Pulse Ox 94 L 06/06/22 08:00 FiO2 Intake & Output 06/05/22 06/06/22 06/06/22 18:59 06:59 18:59 Intake Total 800 Balance 800 Intake: Intake, IV Titration 800 Amount D5-0.45% NaCl with KCl 800 20Meq/l 1,000 ml @ 100 mls/hr IV .Q10H [facility] Rx#: [id number] Other: Voiding Method Toilet # Voids 6 3 # Bowel Movements 0 - Exam Abdomen: Soft, nondistended, mild tenderness around wound VAC site, no erythema - Labs CBC & Chem 7: 06/04/22 10:46 06/05/22 08:34 Labs: Abnormal Lab Results - Last 24 Hours (Table) 06/05/22 Range/Units 08:34 Anion Gap 8.50 L (10.00-18.00) mmol/L Est GFR (CKD-EPI)NonAf 58.1 L (60.0-200.0) BUN/Creatinine Ratio 25.88 H (12.00-20.00) Ratio Microbiology - Last 24 Hours (Table) 06/03/22 17:35 Anaerobic Culture - Preliminary Abdomen 06/03/22 17:35 Anaerobic Culture - Preliminary Abdomen 06/03/22 17:35 Gram Stain - Final Abdomen Wound Culture - Final 06/03/22 17:35 Gram Stain - Final Abdomen Wound Culture - Final Assessment and Plan (1) Abdominal wall abscess Narrative/Plan: 62-year-old female doing gradually better after incision and drainage of abdominal wall abscess with LAP-BAND port removal. Continue increasing activity. Continue antibiotics. Likely discharge tomorrow. Current Visit: Yes Status: Acute Code(s): L02.211 - CUTANEOUS ABSCESS OF ABDOMINAL WALL SNOMED Code(s): 00680962
--- NOTE | 2022-06-06 13:18 | XR ---
EXAMINATION TYPE: XR chest 1V portable DATE OF EXAM: 06/06/2022 12:52 PM COMPARISON: None TECHNIQUE: XR chest 1V portable Portable AP radiograph of the chest. CLINICAL INDICATION:Female, 62 years old with history of short of breath, cough; FINDINGS: Lungs/Pleura: There is no evidence of pleural effusion, focal consolidation, or pneumothorax. Pulmonary vascularity: Unremarkable. Heart/mediastinum: Cardiomediastinal silhouette is unremarkable. Musculoskeletal: No acute osseous pathology. IMPRESSION: No acute cardiopulmonary disease/process.
[2022-06-06] MEDS: BENZOCAINE/MENTHOL LOZENG 1 EACH LOZENGE MUCOUS MEM PRN (17:30)
[2022-06-06] MEDS: D5-0.45% NACL WITH KCL 20MEQ/L 1,000 ML IV SCH ×2 (17:31→21:51)
[2022-06-06] MEDS: LACTATED RINGERS 1,000 ML IV SCH (19:50)
--- NOTE | 2022-06-06 20:09 | P.PN ---
Subjective Progress Note Date: 06/06/22 Principal diagnosis: Abdominal wall abscess and infected lap band port Patient is a 62 year old female presenting to the hospital with lower abdominal wall abscess and concern for infected port which has been removed 06/03/2022 along with the cultures are currently pending. On today's evaluation that is 06/06/2022, patient continues to be afebrile, the patient lower abdominal pain is currently controlled, the patient denies any chest pain or shortness of breath or cough no nausea no vomiting and no diarrhea Objective - Vital Signs Vital signs: Vital Signs Temp 97.6 F 06/06/22 08:00 Pulse 59 L 06/06/22 08:00 Resp 16 06/06/22 08:00 BP 96/62 06/06/22 08:00 Pulse Ox 94 L 06/06/22 08:00 FiO2 Intake & Output 06/05/22 06/06/22 06/06/22 18:59 06:59 18:59 Intake Total 800 Balance 800 Intake: Intake, IV Titration 800 Amount D5-0.45% NaCl with KCl 800 20Meq/l 1,000 ml @ 100 mls/hr IV .Q10H [facility] Rx#: [id number] Other: Voiding Method Toilet # Voids 6 3 # Bowel Movements 0 - Exam GENERAL DESCRIPTION: An middle-aged female lying in bed in no distress RESPIRATORY SYSTEM: Unlabored breathing , decreased breath sounds at bases HEART: S1 S2 regular rate and rhythm , ABDOMEN: Soft , abdominal wound is currently covered with a wound VAC EXTREMITIES: No edema feet - Labs CBC & Chem 7: 06/04/22 10:46 06/05/22 08:34 Labs: Microbiology - Last 24 Hours (Table) 06/03/22 17:35 Anaerobic Culture - Preliminary Abdomen 06/03/22 17:35 Anaerobic Culture - Preliminary Abdomen 06/03/22 17:35 Gram Stain - Final Abdomen Wound Culture - Final 06/03/22 17:35 Gram Stain - Final Abdomen Wound Culture - Final Assessment and Plan (1) Abdominal wall abscess Current Visit: Yes Status: Acute Code(s): L02.211 - CUTANEOUS ABSCESS OF ABDOMINAL WALL SNOMED Code(s): 71564500 Plan: 1patient with lower abdominal pain and swelling around the Lap-Band port site with concern for possible infected seroma/abscess with outpatient aspirate culture positive for anaerobic gram-positive. 2patient is status post drainage of the abscess and removal of the infected port, cultures are so far negative, patient to continue cefazolin and Flagyl, local wound care to continue with the wound VAC Time with Patient: Less than 30
[2022-06-06] MEDS: EZETIMIBE 10 MG TAB PO SCH (21:50)
[2022-06-06] MEDS: ATORVASTATIN 20 MG TAB PO SCH (21:50)
[2022-06-06] MEDS: ONDANSETRON 4 MG/2 ML VIAL IVP PRN (22:03)
[2022-06-07] MEDS: metroNIDAZOLE-NS PMX 500 MG in SALINE 1 100ML.BAG IVPB SCH ×3 (02:22→17:42)
[2022-06-07] MEDS: MORPHINE SULFATE 4 MG/ML SYRINGE IVP PRN ×4 (02:24→20:07)
--- NOTE | 2022-06-07 02:56 | P.PN ---
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 Patient has history of lap band in 2006 states that she has no complications. She then had a consultation with a plastic surgeon and underwent a tummy tuck which she states was complicated by nonhealing periumbical wound which was thought to be a seroma. Patient was evaluated at the bariatric center and fluid from the seroma was aspirated and sent for cultures. She has had revision of surgey with KWAKU drain and also had breast augmentation. Patient presents with leaking from previous incision site with abdominal discomfort across the lower abdomen. She reports fever and chills at home. Denies shortnes of breath, no chest pain. Denies nausea, vomiting, no diarrhea. No dysuria. She is scheduled for I and D with Dr Finney today. Additional history includes hypertension, hyperlipidemia, gastroesophageal r eflux disease. She sees a medical doctor once a year for a physical, she does not know his name off hand. She takes cardizem daily and metoprolol twice a day. Patient has no white count, stable 13.2, electrolytes are within normal limits, BUN 23, creatinine 0.85. Infectious disease has been consulted, patient is started on IV cefazolin and IV metronidazole. 06/04/2022 Patient is postop day #1 incision and drainage and removal of lap band port with Dr Finney. She does have abdominal pain today rating a 7/10, and does have some mild nausea. She is tolerating diet ok. States she is not passing gas, no BM. There is show sanguineous shadowing on surgical dressing which was reinforced by nursing. Wound cultures are pending and she continues on empiric coverage with IV flagyl, cefazolin. Infectious disease is following patient. Blood pressure on lower side 95/58, cardizem continues on hold. We will decrease metoprolol to 12.5 BID. 06/05/2022 Patient is status post day #2 I and D of abdominal abscess. She continues with wound packing, she is having significant pain and is nervous about discharge home. She is worried about her pain management and the discomfort from wound packing. She did developed a cough overnight with sore throat. States she did have some yellow sputum. She is using incentive spirometer and has been up ambulating in [place]. Potassium is 5.0 today would recommend adjusting fluids and removing the potassium component. She denies passing gas, no BM. Remains afebrile, 95% on room air and lungs are clear. Wound cultures are pending, she is being followed by infectious disease. Continues on antibiotics in the form of IV cefazole and IV metronidazole. 06/06/2022 Patient is seen today in follow up and continues with abdominal pain and wound vac is noted. Patient reports to a mild burning sensation at the wound vac site, although site looks good with adequate suction and no surrounding redness or swelling noted. Patient is continued on IV abx with ID following and awaiting cultures to finalize. Patient with a dry hacking cough and will add cepacol and chest xray. Encouraged increased activity as tolerated and continued IS use at least 10 times per hour while awake. Recommend repeat am labs. Review of Systems Constitutional: Denied any fatigue denied any fever. Cardio vascular: denied any chest pain, palpitations Gastrointestinal: Reports abdominal pain, no nausea, no BM Pulmonary: Denied any shortness of breath cough Neurologic denied any new focal deficits All inpatient medications were reviewed and appropriate changes in these medications as dictated in the interval history and assessment and plan. PHYSICAL EXAMINATION: GENERAL: The patient is alert and oriented x3, not in any acute distress. Well developed, well nourished. HEENT: Pupils are round and equally reacting to light. EOMI. No scleral icterus. No conjunctival pallor. Normocephalic, atraumatic. No pharyngeal erythema. No thyromegaly. CARDIOVASCULAR: S1 and S2 present. No murmurs, rubs, or gallops. PULMONARY: Chest is clear to auscultation, no wheezing or crackles. dry cough on exam ABDOMEN: Soft, tender, nondistended, hypoactive bowel sounds. No palpable organomegaly. Wound vac noted MUSCULOSKELETAL: No joint swelling or deformity. EXTREMITIES: No cyanosis, clubbing, or pedal edema. NEUROLOGICAL: Gross neurological examination did not reveal any focal deficits. SKIN: No rashes. Assessment and plan Assessment: History of abdominoplasty with revision complicated by seroma and nonhealing wound Status post I & D abdominal abscess with cultures pending History of hypertension blood pressure 90s systolic today History of hyperlipidemia Gastroesophageal reflux maintained on pepcid History of Lap Band in 2006 Remote former smoker years ago GI Prophylaxis DVT Prophylaxis as per primary Full Code Plan: Continue on decreased dose of beta panda and continue to hold cardizem for now Continue IV antibiotics with ID following and awaiting on cultures. Wound vac intact Patient with an increased cough and sore throat,add cepacol and chest xray reviewed showing no acute cardiopulmonary process Encouraged increased activity as tolerated Encouraged incentive spirometer use at least 10 times every hour while awake Pain management per surgery Recommend am labs Thank you for this consultation. We will continue to follow with you during hospitalization The impression and plan of care has been dictated by Milana Green, Nurse Practitioner as directed. Dr. Celestino MD I have performed a history and physical examination and medical decision making of this patient, discussed the same with the dictator, and agree with the dictators assessment and plan as written, documented as a scribe. Based on total visit time, I have performed more than 50% of this visit. Objective - Vital Signs Vital signs: Vital Signs Temp 98.4 F 06/06/22 20:00 Pulse 71 06/06/22 20:00 Resp 16 06/06/22 20:00 BP 110/71 06/06/22 20:00 Pulse Ox 94 L 06/06/22 20:00 FiO2 Intake & Output 06/06/22 06/06/22 06/07/22 06:59 18:59 06:59 Intake Total 800 Balance 800 Intake: Intake, IV Titration 800 Amount D5-0.45% NaCl with KCl 800 20Meq/l 1,000 ml @ 100 mls/hr IV .Q10H [facility] Rx#: [id number] Other: Voiding Method Toilet Toilet # Voids 3 5 # Bowel Movements 0 1 - Labs CBC & Chem 7: 06/04/22 10:46 06/05/22 08:34 Labs: Microbiology - Last 24 Hours (Table) 06/03/22 17:35 Anaerobic Culture - Preliminary Abdomen 06/03/22 17:35 Anaerobic Culture - Preliminary Abdomen
[2022-06-07] MEDS: KETOROLAC 15 MG/ML 1 ML VIAL IVP SCH ×2 (04:48→09:57)
[2022-06-07] MEDS: ACETAMINOPHEN TAB 325 MG TAB PO PRN (06:28)
[2022-06-07] MEDS: BENZOCAINE/MENTHOL LOZENG 1 EACH LOZENGE MUCOUS MEM PRN (06:29)
[2022-06-07] MEDS: HEPARIN SODIUM,PORCINE/PF 5,000 UNIT/0.5 ML SYRINGE SQ SCH ×2 (09:02→15:25)
[2022-06-07] MEDS: METOPROLOL TARTRATE 12.5 MG TAB PO SCH ×2 (09:02→22:06)
[2022-06-07] MEDS: D5-0.45% NACL WITH KCL 20MEQ/L 1,000 ML IV SCH ×2 (09:04→17:42)
[2022-06-07] MEDS: HYDROcodone/APAP 5-325MG 1 EACH TAB PO PRN ×2 (09:09→17:43)
[2022-06-07] MEDS: PANTOPRAZOLE 40 MG/10 ML VIAL IV SCH (09:56)
--- NOTE | 2022-06-07 10:13 | P.PN ---
Subjective Progress Note Date: 06/07/22 Principal diagnosis: Abdominal wall abscess Patient says her pain is improved again today. Has not had any IV narcotics since midnight. She is afebrile. She is tolerating her diet. Objective - Vital Signs Vital signs: Vital Signs Temp 98.0 F 06/07/22 07:55 Pulse 61 06/07/22 07:55 Resp 16 06/07/22 07:55 BP 100/62 06/07/22 07:55 Pulse Ox 94 L 06/07/22 07:55 FiO2 Intake & Output 06/06/22 06/07/22 06/07/22 18:59 06:59 18:59 Other: Voiding Method Toilet # Voids 5 1 # Bowel Movements 1 - Exam Abdomen: Soft, nondistended, mild tenderness around wound VAC site, no erythema - Labs CBC & Chem 7: 06/04/22 10:46 06/05/22 08:34 Assessment and Plan (1) Abdominal wall abscess Narrative/Plan: Patient doing well at this time. Cultures remain negative. Apparently infectious disease has discussed with the patient possible home IV antibiotics. She is scheduled for a midline tomorrow. Continue local wound care. Continue diet as tolerated. Anticipate discharge tomorrow. Current Visit: Yes Status: Acute Code(s): L02.211 - CUTANEOUS ABSCESS OF ABDOMINAL WALL SNOMED Code(s): 86625706
[2022-06-07 11:53] LABS: Basophils # (A) 0.04 X 10*3/uL (0.00-0.10); Basophils % (A) 0.7 %; Eosinophils # (A) 0.54 X 10*3/uL (0.04-0.35); Eosinophils % (A) 9.9 %; HCT 34.5 % (37.2-46.3); HGB 10.2 g/dL (12.0-15.0); Immature Grans, Automated 0.2 %; Lymphocytes # (A) 1.75 X 10*3/uL (0.90-5.00); Lymphocytes % (A) 32.1 %; MCH 26.9 pg (27.0-32.0); MCHC 29.6 g/dL (32.0-37.0); Mean Platelet Volume 11.6 fL (9.5-12.2); Monocytes # (A) 0.59 X 10*3/uL (0.20-1.00); Monocytes % (A) 10.8 %; NRBC Per 100 WBC 0 /100 WBCS (0.0-0.0); Neutrophils # (A) 2.52 X 10*3/uL (1.80-7.70); Neutrophils % (A) 46.3 %; Platelet Count 210 X 10*3/uL (140-440); RBC 3.79 X 10*6/uL (4.10-5.20); RDW 15.9 % (11.5-14.5); WBC 5.45 X 10*3/uL (4.50-10.00)
[2022-06-07 13:18] LABS: African American GFR (CKD) 83.9 (60.0-200.0); Anion Gap 6.8 mmol/L (10.00-18.00); BUN/Creat Ratio 18.47 Ratio (12.00-20.00); Blood Urea Nitrogen 15.7 mg/dL (9.0-27.0); Calcium 8.3 mg/dL (8.7-10.3); Carbon Dioxide 29.1 mmol/L (20.0-27.5); Non-African American GFR(CKD) 72.4 (60.0-200.0); Potassium 4.5 mmol/L (3.5-5.5)
--- NOTE | 2022-06-07 15:08 | P.PN ---
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 Patient has history of lap band in 2006 states that she has no complications. She then had a consultation with a plastic surgeon and underwent a tummy tuck which she states was complicated by nonhealing periumbical wound which was thought to be a seroma. Patient was evaluated at the bariatric center and fluid from the seroma was aspirated and sent for cultures. She has had revision of surgey with KWAKU drain and also had breast augmentation. Patient presents with leaking from previous incision site with abdominal discomfort across the lower abdomen. She reports fever and chills at home. Denies shortnes of breath, no chest pain. Denies nausea, vomiting, no diarrhea. No dysuria. She is scheduled for I and D with Dr Finney today. Additional history includes hypertension, hyperlipidemia, gastroesophageal r eflux disease. She sees a medical doctor once a year for a physical, she does not know his name off hand. She takes cardizem daily and metoprolol twice a day. Patient has no white count, stable 13.2, electrolytes are within normal limits, BUN 23, creatinine 0.85. Infectious disease has been consulted, patient is started on IV cefazolin and IV metronidazole. 06/04/2022 Patient is postop day #1 incision and drainage and removal of lap band port with Dr Finney. She does have abdominal pain today rating a 7/10, and does have some mild nausea. She is tolerating diet ok. States she is not passing gas, no BM. There is show sanguineous shadowing on surgical dressing which was reinforced by nursing. Wound cultures are pending and she continues on empiric coverage with IV flagyl, cefazolin. Infectious disease is following patient. Blood pressure on lower side 95/58, cardizem continues on hold. We will decrease metoprolol to 12.5 BID. 06/05/2022 Patient is status post day #2 I and D of abdominal abscess. She continues with wound packing, she is having significant pain and is nervous about discharge home. She is worried about her pain management and the discomfort from wound packing. She did developed a cough overnight with sore throat. States she did have some yellow sputum. She is using incentive spirometer and has been up ambulating in [place]. Potassium is 5.0 today would recommend adjusting fluids and removing the potassium component. She denies passing gas, no BM. Remains afebrile, 95% on room air and lungs are clear. Wound cultures are pending, she is being followed by infectious disease. Continues on antibiotics in the form of IV cefazole and IV metronidazole. 06/06/2022 Patient is seen today in follow up and continues with abdominal pain and wound vac is noted. Patient reports to a mild burning sensation at the wound vac site, although site looks good with adequate suction and no surrounding redness or swelling noted. Patient is continued on IV abx with ID following and awaiting cultures to finalize. Patient with a dry hacking cough and will add cepacol and chest xray. Encouraged increased activity as tolerated and continued IS use at least 10 times per hour while awake. Recommend repeat am labs. 06/07/2022 Patient is seen and evaluated in follow-up this morning currently sleeping although easily arousable. Patient continues to report burning and tingling sensation around the wound VAC site and is reported to have dressing changes every 48 hours. General surgery following along with infectious disease and patient is maintained on IV cefazolin along with metronidazole and plan is for possible midline in the morning and outpatient antibiotics to be arranged per ID recommendations. Patient continues to have severe pain and discussed with the patient about limiting IV pain medications and staying on top of pain medication and increasing activity as tolerated. Patient is tolerating diet but having some intermittent feelings of nausea and does have Zofran as needed. Patient reports he does not have much of an appetite although is tolerating diet. Incentive spirometer at the bedside and encourage the patient to continue using at least 10 times every hour while awake. Chest x-ray was negative yesterday and encourage the patient to continue using Cepacol drops for her sore throat. Oral pharynx is pink and moist with no thrush noted on tongue. Patient is afebrile and denies chest pain or shortness of breath. Plan is for possible discharge in 24 hours by general surgery. Review of Systems Constitutional: Denied any fatigue denied any fever. Cardio vascular: denied any chest pain, palpitations Gastrointestinal: Reports abdominal pain, no nausea, report having BM Pulmonary: Denied any shortness of breath, reports dry cough Neurologic denied any new focal deficits All inpatient medications were reviewed and appropriate changes in these medications as dictated in the interval history and assessment and plan. PHYSICAL EXAMINATION: GENERAL: The patient is alert and oriented x3, not in any acute distress. Well developed, well nourished. HEENT: Pupils are round and equally reacting to light. EOMI. No scleral icterus. No conjunctival pallor. Normocephalic, atraumatic. No pharyngeal erythema. No thyromegaly. CARDIOVASCULAR: S1 and S2 present. No murmurs, rubs, or gallops. PULMONARY: Chest is clear to auscultation, no wheezing or crackles. dry cough on exam ABDOMEN: Soft, tender, nondistended, hypoactive bowel sounds. No palpable organomegaly. Wound vac noted MUSCULOSKELETAL: No joint swelling or deformity. EXTREMITIES: No cyanosis, clubbing, or pedal edema. NEUROLOGICAL: Gross neurological examination did not reveal any focal deficits. SKIN: No rashes. Assessment and plan Assessment: History of abdominoplasty with revision complicated by seroma and nonhealing wound Status post I & D abdominal abscess with cultures pending History of hypertension blood pressure 90s systolic today History of hyperlipidemia Gastroesophageal reflux maintained on pepcid History of Lap Band in 2006 Remote former smoker years ago GI Prophylaxis DVT Prophylaxis as per primary Full Code Plan: Continue on decreased dose of beta panda and continue to hold cardizem for now Continue IV antibiotics with ID following and awaiting on cultures. Cultures thus far are negative and infectious disease has ordered midline for IV antibiotic therapy in the outpatient setting Wound vac intact dressings to be changed, Patient with continued sore throat, add cepacol Encouraged increased activity as tolerated Encouraged incentive spirometer use at least 10 times every hour while awake Pain management per surgery Recommend am labs Possible discharge in 24 hours by general surgery Thank you for this consultation. We will continue to follow with you during hospitalization The impression and plan of care has been dictated by Nurse Cullen Abdi titioner as directed. Dr. Celestino MD I have performed a history and physical examination and medical decision making of this patient, discussed the same with the dictator, and agree with the dictators assessment and plan as written, documented as a scribe. Based on total visit time, I have performed more than 50% of this visit. Objective - Vital Signs Vital signs: Vital Signs Temp 97.7 F 06/07/22 14:00 Pulse 73 06/07/22 14:00 Resp 17 06/07/22 14:00 BP 102/66 06/07/22 14:00 Pulse Ox 97 06/07/22 14:00 FiO2 Intake & Output 06/06/22 06/07/22 06/07/22 18:59 06:59 18:59 Intake Total 120 Balance 120 Intake: Oral 120 Other: Voiding Method Toilet # Voids 5 1 # Bowel Movements 1 - Labs CBC & Chem 7: 06/07/22 07:38 06/07/22 07:38 Labs: Abnormal Lab Results - Last 24 Hours (Table) 06/07/22 06/07/22 Range/Units 07:38 07:38 RBC 3.79 L (4.10-5.20) X 10*6/uL Hgb 10.2 L (12.0-15.0) g/dL Hct 34.5 L (37.2-46.3) % MCH 26.9 L (27.0-32.0) pg MCHC 29.6 L (32.0-37.0) g/dL RDW 15.9 H (11.5-14.5) % Eosinophils # 0.54 H (0.04-0.35) X 10*3/uL Sodium 146 H (135-145) mmol/L Chloride 110 H (96-109) mmol/L Carbon Dioxide 29.1 H (20.0-27.5) mmol/L Anion Gap 6.80 L (10.00-18.00) mmol/L Calcium 8.3 L (8.7-10.3) mg/dL
[2022-06-07] MEDS: ONDANSETRON 4 MG/2 ML VIAL IVP PRN (15:38)
[2022-06-07] MEDS: EZETIMIBE 10 MG TAB PO SCH (22:06)
[2022-06-07] MEDS: ATORVASTATIN 20 MG TAB PO SCH (22:06)
[2022-06-07] MEDS: LACTATED RINGERS 1,000 ML IV SCH (22:11)
[2022-06-08] MEDS: HEPARIN SODIUM,PORCINE/PF 5,000 UNIT/0.5 ML SYRINGE SQ SCH ×3 (00:36→15:27)
[2022-06-08] MEDS: metroNIDAZOLE-NS PMX 500 MG in SALINE 1 100ML.BAG IVPB SCH ×3 (02:12→17:55)
[2022-06-08] MEDS: MORPHINE SULFATE 4 MG/ML SYRINGE IVP PRN ×4 (03:20→19:41)
[2022-06-08] MEDS: D5-0.45% NACL WITH KCL 20MEQ/L 1,000 ML IV SCH ×2 (05:05→15:27)
--- NOTE | 2022-06-08 08:06 | P.PN ---
Subjective Progress Note Date: 06/07/22 Principal diagnosis: Abdominal wall abscess and infected lap band port Patient is a 62 year old female presenting to the hospital with lower abdominal wall abscess and concern for infected port which has been removed 06/03/2022 along with the cultures are currently pending. On today's evaluation that is 06/07/2022, patient remains to be afebrile, the patient has been complaining of some pain around the wound VAC site, the patient denies any chest pain or shortness of breath or cough no nausea no vomiting and no diarrhea Objective - Vital Signs Vital signs: Vital Signs Temp 97.7 F 06/07/22 14:00 Pulse 73 06/07/22 14:00 Resp 17 06/07/22 14:00 BP 102/66 06/07/22 14:00 Pulse Ox 97 06/07/22 14:00 FiO2 Intake & Output 06/06/22 06/07/22 06/07/22 18:59 06:59 18:59 Intake Total 120 Balance 120 Intake: Oral 120 Other: Voiding Method Toilet # Voids 5 1 # Bowel Movements 1 - Exam GENERAL DESCRIPTION: An middle-aged female lying in bed in no distress RESPIRATORY SYSTEM: Unlabored breathing , decreased breath sounds at bases HEART: S1 S2 regular rate and rhythm , ABDOMEN: Soft , abdominal wound is currently covered with a wound VAC EXTREMITIES: No edema feet - Labs CBC & Chem 7: 06/07/22 07:38 06/07/22 07:38 Labs: Abnormal Lab Results - Last 24 Hours (Table) 06/07/22 06/07/22 Range/Units 07:38 07:38 RBC 3.79 L (4.10-5.20) X 10*6/uL Hgb 10.2 L (12.0-15.0) g/dL Hct 34.5 L (37.2-46.3) % MCH 26.9 L (27.0-32.0) pg MCHC 29.6 L (32.0-37.0) g/dL RDW 15.9 H (11.5-14.5) % Eosinophils # 0.54 H (0.04-0.35) X 10*3/uL Sodium 146 H (135-145) mmol/L Chloride 110 H (96-109) mmol/L Carbon Dioxide 29.1 H (20.0-27.5) mmol/L Anion Gap 6.80 L (10.00-18.00) mmol/L Calcium 8.3 L (8.7-10.3) mg/dL Assessment and Plan (1) Abdominal wall abscess Current Visit: Yes Status: Acute Code(s): L02.211 - CUTANEOUS ABSCESS OF ABDOMINAL WALL SNOMED Code(s): 58890193 Plan: 1patient with lower abdominal pain and swelling around the Lap-Band port site with concern for possible infected seroma/abscess with outpatient aspirate culture positive for anaerobic gram-positive. 2patient is status post drainage of the abscess and removal of the infected port, cultures has been negative, patient to continue cefazolin and Flagyl, local wound care to continue with the wound VAC, will likely be discharged on oral antibiotics Time with Patient: Less than 30
[2022-06-08] MEDS: METOPROLOL TARTRATE 12.5 MG TAB PO SCH ×2 (08:28→20:43)
[2022-06-08] MEDS: PANTOPRAZOLE 40 MG/10 ML VIAL IV SCH (08:28)
[2022-06-08] MEDS: HYDROcodone/APAP 5-325MG 1 EACH TAB PO PRN ×2 (08:30→17:57)
--- NOTE | 2022-06-08 13:49 | P.PN ---
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 Patient has history of lap band in 2007 states that she has no complications. She then had a consultation with a plastic surgeon and underwent a tummy tuck which she states was complicated by nonhealing periumbical wound which was thought to be a seroma. Patient was evaluated at the bariatric center and fluid from the seroma was aspirated and sent for cultures. She has had revision of surgey with KWAKU drain and also had breast augmentation. Patient presents with leaking from previous incision site with abdominal discomfort across the lower abdomen. She reports fever and chills at home. Denies shortnes of breath, no chest pain. Denies nausea, vomiting, no diarrhea. No dysuria. She is scheduled for I and D with Dr Finney today. Additional history includes hypertension, hyperlipidemia, gastroesophageal reflux disease. She sees a medical doctor once a year for a physical, she does not know his name off hand. She takes cardizem daily and metoprolol twice a day. Patient has no white count, stable 13.2, electrolytes are within normal limits, BUN 23, creatinine 0.85. Infectious disease has been consulted, patient is started on IV cefazolin and IV metronidazole. 06/04/2022 Patient is postop day #1 incision and drainage and removal of lap band port with Dr Finney. She does have abdominal pain today rating a 7/10, and does have some mild nausea. She is tolerating diet ok. States she is not passing gas, no BM. There is show sanguineous shadowing on surgical dressing which was reinforced by nursing. Wound cultures are pending and she continues on empiric coverage with IV flagyl, cefazolin. Infectious disease is following patient. Blood pressure on lower side 95/58, cardizem continues on hold. We will decrease metoprolol to 12.5 BID. 06/05/2022 Patient is status post day #2 I and D of abdominal abscess. She continues with wound packing, she is having significant pain and is nervous about discharge home. She is worried about her pain management and the discomfort from wound packing. She did developed a cough overnight with sore throat. States she did have some yellow sputum. She is using incentive spirometer and has been up ambulating in hallway. Potassium is 5.0 today would recommend adjusting fluids and removing the potassium component. She denies passing gas, no BM. Remains afebrile, 95% on room air and lungs are clear. Wound cultures are pending, she is being followed by infectious disease. Continues on antibiotics in the form of IV cefazole and IV metronidazole. 06/06/2022 Patient is seen today in follow up and continues with abdominal pain and wound vac is noted. Patient reports to a mild burning sensation at the wound vac site, although site looks good with adequate suction and no surrounding redness or swelling noted. Patient is continued on IV abx with ID following and awaiting cultures to finalize. Patient with a dry hacking cough and will add cepacol and chest xray. Encouraged increased activity as tolerated and continued IS use at least 10 times per hour while awake. Recommend repeat am labs. 06/07/2022 Patient is seen and evaluated in follow-up this morning currently sleeping although easily arousable. Patient continues to report burning and tingling sensation around the wound VAC site and is reported to have dressing changes daksha ry 48 hours. General surgery following along with infectious disease and patient is maintained on IV cefazolin along with metronidazole and plan is for possible midline in the morning and outpatient antibiotics to be arranged per ID recommendations. Patient continues to have severe pain and discussed with the patient about limiting IV pain medications and staying on top of pain medication and increasing activity as tolerated. Patient is tolerating diet but having some intermittent feelings of nausea and does have Zofran as needed. Patient reports he does not have much of an appetite although is tolerating diet. Incentive spirometer at the bedside and encourage the patient to continue using at least 10 times every hour while awake. Chest x-ray was negative yesterday and encourage the patient to continue using Cepacol drops for her sore throat. Oral pharynx is pink and moist with no thrush noted on tongue. Patient is afebrile and denies chest pain or shortness of breath. Plan is for possible discharge in 24 hours by general surgery. 06/08/2022 Patient evalauted today resting in bed. at bedside sitting in chair. She reports abdominal pain of 5/10, using norco. Requesting IV morphine for woundvac change. Spouse and patient are nervous about discharge regarding pain management and woundcare. Tolerating some diet, passing gas, has had a BM, no dysuria. No shortness of breath, no chest pain, reports cough improving. She is using cepacol lozenges as needed. Most recent labs showing white count 5.45, hgb 10.2, sodium 146, potassium 4.5, BUN 15.7, creatinine 0.9. Patient remains afebrile, heart rate 57, blood pressure 120/68. Encouraged to ambulate, use incentive spirometer. Encouraged to increase oral intake. Review of Systems Constitutional: Denied any fatigue denied any fever. Cardio vascular: denied any chest pain, palpitations Gastrointestinal: Reports abdominal pain, no nausea, report having BM Pulmonary: Denied any shortness of breath, reports dry cough Neurologic denied any new focal deficits All inpatient medications were reviewed and appropriate changes in these medications as dictated in the interval history and assessment and plan. PHYSICAL EXAMINATION: GENERAL: The patient is alert and oriented x3, not in any acute distress. Well developed, well nourished. HEENT: Pupils are round and equally reacting to light. EOMI. No scleral icterus. No conjunctival pallor. Normocephalic, atraumatic. No pharyngeal erythema. No thyromegaly. CARDIOVASCULAR: S1 and S2 present. No murmurs, rubs, or gallops. PULMONARY: Chest is clear to auscultation, no wheezing or crackles. dry cough on exam ABDOMEN: Soft, tender, nondistended, hypoactive bowel sounds. No palpable organomegaly. Wound vac noted MUSCULOSKELETAL: No joint swelling or deformity. EXTREMITIES: No cyanosis, clubbing, or pedal edema. NEUROLOGICAL: Gross neurological examination did not reveal any focal deficits. SKIN: No rashes. Assessment and plan Assessment History of abdominoplasty with revision complicated by seroma and nonhealing wo und Status post I & D abdominal abscess with cultures pending History hypertension blood pressure currently normotensive Hypernatremia, most likely hypovolemic encourage to increase oral intake History hyperlipidemia Gastroesophageal reflux maintained on pepcid History Lap Band in 2006 Remote former smoker years ago GI Prophylaxis DVT Prophylaxis as per primary Full Code Plan Continue on decreased dose of beta panda and continue to hold cardizem for now Continue IV antibiotics with ID following, cultures are negative so far and patient will discharge on oral antibiotics. Wound vac intact, patient will discharge with wound vac managed by home care Patient with continued sore throat, using cepacol Encouraged increased activity as tolerated Encouraged incentive spirometer use at least 10 times every hour while awake Pain management per surgery Recommend repeat labs in 2 to 3 days The impression and plan of care has been dictated by Margaret Edwards Nurse Practitioner as directed. Dr. Celestino MD I have performed a history and physical examination and medical decision making of this patient, discussed the same with the dictator, and agree with the dictators assessment and plan as written, documented as a scribe. Based on total visit time, I have performed more than 50% of this visit. Objective - Vital Signs Vital signs: Vital Signs Temp 97.9 F 06/08/22 08:00 Pulse 57 L 06/08/22 08:47 Resp 16 06/08/22 08:47 BP 120/68 06/08/22 08:00 Pulse Ox 95 06/08/22 08:00 FiO2 Intake & Output 06/07/22 06/08/22 06/08/22 18:59 06:59 18:59 Intake Total 120 1500 Balance 120 1500 Intake: Intake, IV Titration 1500 Amount D5-0.45% NaCl with KCl 1200 20Meq/l 1,000 ml @ 100 mls/hr IV .Q10H [facility] Rx#: [id number] ceFAZolin 2 gm In Sodium 100 Chloride 0.9% 50 ml @ 100 mls/hr IVPB Q8H [facility] Rx#: [id number] metroNIDAZOLE-NS PMX 500 200 mg In Saline 1 100ml.bag @ 100 mls/hr IVPB Q8H [facility] Rx#:[id number] Oral 120 Other: Voiding Method Toilet Toilet # Voids 5 4 - Labs CBC & Chem 7: 06/07/22 07:38 06/07/22 07:38 Labs: Microbiology - Last 24 Hours (Table) 06/03/22 17:35 Anaerobic Culture - Final Abdomen 06/03/22 17:35 Anaerobic Culture - Final Abdomen Assessment and Plan Time with Patient: Less than 30
--- NOTE | 2022-06-08 15:14 | P.PN ---
Subjective Progress Note Date: 06/08/22 CHIEF COMPLAINT: Abdominal wall abscess HISTORY OF PRESENT ILLNESS: Postop day #5 status post incision and drainage of abdominal wall abscess with removal of lap band port. Patient has wound VAC in place. She did require IV morphine around 2 or 3:00 this morning. She has been trying to use just the [place]. She did have some nausea earlier. We are awaiting insurance authorization for wound VAC at home. Infectious diseases recommending oral antibiotics for discharge. She has been up and ambulating. She does report having bowel movement flatus. She is tolerating diet. Afebrile. No new labs for today. Last WBC was 5.45 wound cultures are negative. Fungal culture pending. PHYSICAL EXAM: VITAL SIGNS: Reviewed. GENERAL: Well-developed in no acute distress. HEENT: No sclera icterus. Extraocular movements grossly intact. Moist buccal mucosa. Head is atraumatic, normocephalic. ABDOMEN: Soft. Wound VAC in place. Mild tenderness around wound VAC. No erythema. NEUROLOGIC: Alert and oriented. Cranial nerves II through XII grossly intact. ASSESSMENT: 1. Abdominal wall abscess status post incision and drainage of abdominal wall abscess with removal of lap band port PLAN: -Awaiting insurance authorization for wound VAC at home -Continue wound VAC -Continue pain management -Continue antibiotics per ID service -Continue supportive care -GI prophylaxis Protonix and DVT prophylaxis subcu heparin Physician Publishing Director note has been reviewed by physician. Signing provider agrees with the documented findings, assessment, and plan of care. I have personally seen and examined the patient, reviewed the SOCIAL MEDIA SPECIALIST /PAs history, exam and MDM and agree with the assessment and plan as written. Based on total visit time, I have performed more than 50% of the visit. As above: Patient seems to be doing better. Says her pain is definitely improved each day. Continue wound VAC therapy. Antibiotics postdischarge oral per infectious disease. Cultures remain negative thus far. Possible discharge tomorrow. Objective - Vital Signs Vital signs: Vital Signs Temp 98.6 F 06/08/22 14:00 Pulse 63 06/08/22 14:00 Resp 18 06/08/22 14:00 BP 126/79 06/08/22 14:00 Pulse Ox 98 06/08/22 14:00 FiO2 Intake & Output 06/07/22 06/08/22 06/08/22 18:59 06:59 18:59 Intake Total 120 1500 Balance 120 1500 Intake: Intake, IV Titration 1500 Amount D5-0.45% NaCl with KCl 1200 20Meq/l 1,000 ml @ 100 mls/hr IV .Q10H [facility] Rx#: [id number] ceFAZolin 2 gm In Sodium 100 Chloride 0.9% 50 ml @ 100 mls/hr IVPB Q8H [facility] Rx#: [id number] metroNIDAZOLE-NS PMX 500 200 mg In Saline 1 100ml.bag @ 100 mls/hr IVPB Q8H [facility] Rx#:[id number] Oral 120 Other: Voiding Method Toilet Toilet # Voids 5 4 - Labs CBC & Chem 7: 06/07/22 07:38 06/07/22 07:38 Labs: Microbiology - Last 24 Hours (Table) 06/03/22 17:35 Anaerobic Culture - Final Abdomen 06/03/22 17:35 Anaerobic Culture - Final Abdomen
[2022-06-08] MEDS: LACTATED RINGERS 1,000 ML IV SCH (17:28)
[2022-06-08] MEDS: ATORVASTATIN 20 MG TAB PO SCH (20:43)
[2022-06-08] MEDS: EZETIMIBE 10 MG TAB PO SCH (20:43)
[2022-06-09] MEDS: HEPARIN SODIUM,PORCINE/PF 5,000 UNIT/0.5 ML SYRINGE SQ SCH ×2 (00:23→08:26)
[2022-06-09] MEDS: D5-0.45% NACL WITH KCL 20MEQ/L 1,000 ML IV SCH (02:16)
[2022-06-09] MEDS: metroNIDAZOLE-NS PMX 500 MG in SALINE 1 100ML.BAG IVPB SCH ×2 (02:17→08:26)
[2022-06-09] MEDS: HYDROcodone/APAP 5-325MG 1 EACH TAB PO PRN ×3 (08:25→16:05)
[2022-06-09] MEDS: METOPROLOL TARTRATE 12.5 MG TAB PO SCH (08:26)
[2022-06-09] MEDS: PANTOPRAZOLE 40 MG/10 ML VIAL IV SCH (08:26)
[2022-06-09 10:49] LABS: African American GFR (CKD) 90.3 (60.0-200.0); Anion Gap 9.5 mmol/L (10.00-18.00); BUN/Creat Ratio 13.75 Ratio (12.00-20.00); Calcium 9.2 mg/dL (8.7-10.3); Carbon Dioxide 27.5 mmol/L (20.0-27.5); Magnesium 1.9 mg/dL (1.5-2.4); Non-African American GFR(CKD) 77.9 (60.0-200.0); Potassium 4.6 mmol/L (3.5-5.5)
[2022-06-09] MEDS: MORPHINE SULFATE 4 MG/ML SYRINGE IVP PRN (12:05)
[2022-06-09 13:20] VITALS: BMI 30.3
[2022-06-09 14:18] VITALS: BP 125/84; PULSE 54; RESP 18; TEMP 98.4
--- NOTE | 2022-06-09 15:00 | P.DS ---
Providers Date of admission: 06/02/22 17:10 Expected date of discharge: 06/09/22 Attending physician: Serjio Finney Consults: 06/02/22 15:44 Consult Physician Routine Consulting Provider: Rishi Rojas Consult Reason/Comments: Medical management Do you want consulting provider notified?: Yes Consult Physician Routine Consulting Provider: Cassie Lindsay Consult Reason/Comments: Abdominal wall abscess Do you want consulting provider notified?: Yes Primary care physician: Stated None Hospital Course: Discharge diagnosis 1. Abdominal wall abscess status post incision and drainage of abdominal wall abscess with removal of lap band port Hospital course This is a 62-year-old female who has a previous abdominoplasty with of revision. She presented to the ER with fluid leaking from her incision in the infraumbilical location. She had evidence of abdominal wall abscess. She is status post incision and drainage of abdominal well abscess with removal of lap band port. Patient tolerated surgery well. She has wound VAC in place. She'll continue wound VAC after discharge. Her pain is controlled. She's afebrile. She'll be discharged with oral antibiotics. She is up and ambulating. She is stable for discharge. Please refer chart for any further details. Physician Advanced Practice Nurse note has been reviewed by physician. Signing provider agrees with the documented findings, assessment, and plan of care. Patient Condition at Discharge: Stable Plan - Discharge Summary New Discharge Prescriptions: New Benzocaine/Menthol Lozeng [Cepacol lozenge] 1 each MUCOUS MEM Q4HR PRN lozenge PRN Reason: Sore Throat Metoprolol Tartrate [Lopressor] 12.5 mg PO BID tab cefUROXime axetiL [Ceftin] 500 mg PO BID 7 Days #14 tab Acetaminophen Tab [Tylenol] 650 mg PO Q6HR PRN tab PRN Reason: Mild Pain Or Fever >= 100.5 metroNIDAZOLE [Flagyl] 500 mg PO TID #21 tab HYDROcodone/APAP 5-325MG [Mer[place] 5-325] 1 tab PO Q6HR PRN 3 Days #12 tab PRN Reason: Pain Continue Ezetimibe [Zetia] 10 mg PO HS Famotidine [Pepcid] 20 mg PO DAILY PRN PRN Reason: Gi Upset Rosuvastatin [Crestor] 10 mg PO HS FLUoxetine HCL [PROzac] 20 mg PO BID Discontinued dilTIAZem HCL [Cardizem] 120 mg PO HS Metoprolol Tartrate [Lopressor] 25 mg PO BID Discharge Medication List Ezetimibe [Zetia] 10 mg PO HS 01/16/22 [History] FLUoxetine HCL [PROzac] 20 mg PO BID 06/02/22 [History] Famotidine [Pepcid] 20 mg PO DAILY PRN 06/02/22 [History] Rosuvastatin [Crestor] 10 mg PO HS 06/02/22 [History] Acetaminophen Tab [Tylenol] 650 mg PO Q6HR PRN tab 06/08/22 [Rx] Benzocaine/Menthol Lozeng [Cepacol lozenge] 1 each MUCOUS MEM Q4HR PRN lozenge 06/08/22 [Rx] Metoprolol Tartrate [Lopressor] 12.5 mg PO BID tab 06/08/22 [Rx] HYDROcodone/APAP 5-325MG [Meridian 5-325] 1 tab PO Q6HR PRN 3 Days #12 tab 06/09/22 [Rx] cefUROXime axetiL [Ceftin] 500 mg PO BID 7 Days #14 tab 06/09/22 [Rx] metroNIDAZOLE [Flagyl] 500 mg PO TID #21 tab 06/09/22 [Rx] Follow up [place]ment(s[place]Ref[place] 06/23/22 3:00 pm [facility], [REFERRING] - As Needed Cassie Lindsay MD [STAFF PHYSICIAN] - 1 Week (at the wound center at [facility] [phone]) Ambulatory/Diagnostic Orders: Basic Metabolic Panel [LAB.AMB] Time Frame: 3 Days, Location: None Selected Patient Instructions/Handouts: Abscess (ED) Activity/Diet/Wound Care/Special Instructions: 3M [facility] wound vac: #[phone] lindsay in wound care 1 week , call [phone] to make an appointment Follow up with Primary care provider in 2 to 3 days, also repeat labs in 2 to 3 days Continue with incentive spirometer Increase oral intake Hold cardizem until follow up with primary care provider Continue with metoprolol 12.5 mg po daily (1/2 tablet) No driving while taking [place] No lifting over 10 pounds You may shower. No soaking or tub baths for 2 weeks Very light activity until you are reevaluated at your follow up appointment with your surgeon Discharge Disposition: HOME WITH HOME HEALTH SERVICES
--- NOTE | 2022-06-09 15:59 | P.PN ---
Subjective Progress Note Date: 06/09/22 This is a 62 year old female with medical history of abdominoplasty with revision and possible recurrent seroma. Patient has history of lap band in 2007 states that she has no complications. She then had a consultation with a plastic surgeon and underwent a tummy tuck which she states was complicated by nonhealing periumbical wound which was thought to be a seroma. Patient was evaluated at the bariatric center and fluid from the seroma was aspirated and sent for cultures. She has had revision of surgey with KWAKU drain and also had breast augmentation. Patient presents with leaking from previous incision site with abdominal discomfort across the lower abdomen. She reports fever and chills at home. Denies shortnes of breath, no chest pain. Denies nausea, vomiting, no diarrhea. No dysuria. She is scheduled for I and D with Dr Finney today. Additional history includes hypertension, hyperlipidemia, gastroesophageal reflux disease. She sees a medical doctor once a year for a physical, she does not know his name off hand. She takes cardizem daily and metoprolol twice a day. Patient has no white count, stable 13.2, electrolytes are within normal limits, BUN 23, creatinine 0.85. Infectious disease has been consulted, patient is started on IV cefazolin and IV metronidazole. 06/04/2022 Patient is postop day #1 incision and drainage and removal of lap band port with Dr Finney. She does have abdominal pain today rating a 7/10, and does have some mild nausea. She is tolerating diet ok. States she is not passing gas, no BM. There is show sanguineous shadowing on surgical dressing which was reinforced by nursing. Wound cultures are pending and she continues on empiric coverage with IV flagyl, cefazolin. Infectious disease is following patient. Blood pressure on lower side 95/58, cardizem continues on hold. We will decrease metoprolol to 12.5 BID. 06/05/2022 Patient is status post day #2 I and D of abdominal abscess. She continues with wound packing, she is having significant pain and is nervous about discharge home. She is worried about her pain management and the discomfort from wound packing. She did developed a cough overnight with sore throat. States she did have some yellow sputum. She is using incentive spirometer and has been up ambulating in hallway. Potassium is 5.0 today would recommend adjusting fluids and removing the potassium component. She denies passing gas, no BM. Remains afebrile, 95% on room air and lungs are clear. Wound cultures are pending, she is being followed by infectious disease. Continues on antibiotics in the form of IV cefazole and IV metronidazole. 06/06/2022 Patient is seen today in follow up and continues with abdominal pain and wound vac is noted. Patient reports to a mild burning sensation at the wound vac site, although site looks good with adequate suction and no surrounding redness or swelling noted. Patient is continued on IV abx with ID following and awaiting cultures to finalize. Patient with a dry hacking cough and will add cepacol and chest xray. Encouraged increased activity as tolerated and continued IS use at least 10 times per hour while awake. Recommend repeat am labs. 06/07/2022 Patient is seen and evaluated in follow-up this morning currently sleeping although easily arousable. Patient continues to report burning and tingling sensation around the wound VAC site and is reported to have dressing changes daksha ry 48 hours. General surgery following along with infectious disease and patient is maintained on IV cefazolin along with metronidazole and plan is for possible midline in the morning and outpatient antibiotics to be arranged per ID recommendations. Patient continues to have severe pain and discussed with the patient about limiting IV pain medications and staying on top of pain medication and increasing activity as tolerated. Patient is tolerating diet but having some intermittent feelings of nausea and does have Zofran as needed. Patient reports he does not have much of an appetite although is tolerating diet. Incentive spirometer at the bedside and encourage the patient to continue using at least 10 times every hour while awake. Chest x-ray was negative yesterday and encourage the patient to continue using Cepacol drops for her sore throat. Oral pharynx is pink and moist with no thrush noted on tongue. Patient is afebrile and denies chest pain or shortness of breath. Plan is for possible discharge in 24 hours by general surgery. 06/08/2022 Patient evalauted today resting in bed. at bedside sitting in chair. She reports abdominal pain of 5/10, using norco. Requesting IV morphine for woundvac change. Spouse and patient are nervous about discharge regarding pain management and woundcare. Tolerating some diet, passing gas, has had a BM, no dysuria. No shortness of breath, no chest pain, reports cough improving. She is using cepacol lozenges as needed. Most recent labs showing white count 5.45, hgb 10.2, sodium 146, potassium 4.5, BUN 15.7, creatinine 0.9. Patient remains afebrile, heart rate 57, blood pressure 120/68. Encouraged to ambulate, use incentive spirometer. Encouraged to increase oral intake. 06/09/2022 Patient evaluated today resting in bed. Pain has improved to a 3/4 out of 10 describes as burning. Plan today is to change out woundvac and patient to discharge home with home care in place. Denies shortness of breath, cough and sore throat have improved. BMP today shows sodium normalized to 140, potassium 4.6, BUN 11, creatinine 0.8, magnesium 1.9. Covid negative. Patient will discharge on ceftin and metronidazole antibiotic therapy. She is afebrile, heart rate 54, blood pressure 125/84, 97% room air. Review of Systems Constitutional: Denied any fatigue denied any fever. Cardio vascular: denied any chest pain, palpitations Gastrointestinal: Reports abdominal pain, no nausea, report having BM Pulmonary: Denied any shortness of breath, no cough Neurologic denied any new focal deficits All inpatient medications were reviewed and appropriate changes in these medications as dictated in the interval history and assessment and plan. PHYSICAL EXAMINATION: GENERAL: The patient is alert and oriented x3, not in any acute distress. Well developed, well nourished. HEENT: Pupils are round and equally reacting to light. EOMI. No scleral icterus. No conjunctival pallor. Normocephalic, atraumatic. No pharyngeal erythema. No thyromegaly. CARDIOVASCULAR: S1 and S2 present. No murmurs, rubs, or gallops. PULMONARY: Chest is clear to auscultation, no wheezing or crackles. dry cough on exam ABDOMEN: Soft, tender, nondistended, hypoactive bowel sounds. No palpable organomegaly. Wound vac noted MUSCULOSKELETAL: No joint swelling or deformity. EXTREMITIES: No cyanosis, clubbing, or pedal edema. NEUROLOGICAL: Gross neurological examination did not reveal any focal deficits. SKIN: No rashes. Assessment and plan Assessment History of abdominoplasty with revision complicated by seroma and nonhealing wound Status post I & D abdominal abscess with cultures negative so far. History hypertension blood pressure currently normotensive Hypernatremia, most likely hypovolemic, resolved History hyperlipidemia Gastroesophageal reflux maintained on pepcid History Lap Band in 2006 Remote former smoker years ago GI Prophylaxis DVT Prophylaxis as per primary Full Code Plan Continue on decreased dose of beta panda and continue to hold cardizem for now Wound vac intact, patient will discharge with wound vac managed by home care Encouraged increased activity as tolerated Encouraged incentive spirometer use at least 10 times every hour while awake Pain management per surgery Recommend repeat labs in 2 to 3 days Cleared medically for discharge The impression and plan of care has been dictated by Margaret Edwards Nurse Practitioner as directed. Dr. Celestino MD I have performed a history and physical examination and medical decision making of this patient, discussed the same with the dictator, and agree with the dictators assessment and plan as written, documented as a scribe. Based on total visit time, I have performed more than 50% of this visit. Objective - Vital Signs Vital signs: Vital Signs Temp 98.4 F 06/09/22 14:17 Pulse 54 L 06/09/22 14:17 Resp 18 06/09/22 14:17 BP 125/84 06/09/22 14:17 Pulse Ox 97 06/09/22 14:17 FiO2 Intake & Output 06/08/22 06/09/22 06/09/22 18:59 06:59 18:59 Intake Total 1200 Balance 1200 Weight 85.275 kg Intake: Intake, IV Titration 1200 Amount D5-0.45% NaCl with KCl 950 20Meq/l 1,000 ml @ 100 mls/hr IV .Q10H YODIT Rx#: [id number] ceFAZolin 2 gm In Sodium 50 Chloride 0.9% 50 ml @ 100 mls/hr IVPB Q8H YODIT Rx#: [id number] metroNIDAZOLE-NS PMX 500 200 mg In Saline 1 100ml.bag @ 100 mls/hr IVPB Q8H YODIT Rx#:[id number] Other: Voiding Method Toilet Toilet Toilet # Voids 2 - Labs CBC & Chem 7: 06/07/22 07:38 06/09/22 07:03 Labs: Abnormal Lab Results - Last 24 Hours (Table) 06/09/22 Range/Units 07:03 Anion Gap 9.50 L (10.00-18.00) mmol/L Assessment and Plan Time with Patient: Less than 30
== END 2022-06-09 16:24 | disposition home health service (06) | DRG 857 ==
LOC: BARWHC3 13:47 → 4SSUR 17:10
PROVIDERS: ADMIT Surgery; ATTEND Surgery
PROC: 0DP64CZ Removal of Extraluminal Device from Stomach, Percutaneous Endoscopic Approach (ICD-10-PCS; principal; 2022-06-02)
PROC: 0W9F0ZX Drainage of Abdominal Wall, Open Approach, Diagnostic (ICD-10-PCS; principal; 2022-06-02)
DX: T81.43XA Infection following a procedure, organ and space surgical site, initial encounter (principal); E87.0 Hyperosmolality and hypernatremia; K95.01 Infection due to gastric band procedure; L02.211 Cutaneous abscess of abdominal wall; E66.01 Morbid (severe) obesity due to excess calories; Z20.822 Contact with and (suspected) exposure to COVID-19; Z28.310 Unvaccinated for COVID-19; E86.1 Hypovolemia; K21.9 Gastro-esophageal reflux disease without esophagitis; E78.5 Hyperlipidemia, unspecified; F41.9 Anxiety disorder, unspecified; I10 Essential (primary) hypertension; Z79.899 Other long term (current) drug therapy; Z87.891 Personal history of nicotine dependence; Z88.0 Allergy status to penicillin; Z88.5 Allergy status to narcotic agent; Y83.8 Other surgical procedures as the cause of abnormal reaction of the patient, or of later complication, without mention of misadventure at the time of the procedure; Y92.009 Unspecified place in unspecified non-institutional (private) residence as the place of occurrence of the external cause; Z80.3 Family history of malignant neoplasm of breast
CPT/HCPCS: 71045; 80048; 80053; 83735; 85025; 87070; 87075; 87102; 87205; 87635; 99211

== ENCOUNTER 2022-08-01 15:57 | Inpatient (IN) | payer BC ==
[2022-08-01] MEDS ORDERED: ONDANSETRON 4 MG/2 ML VIAL IVP STA (16:44)
[2022-08-01] MEDS ORDERED: KETOROLAC 15 MG/ML 1 ML VIAL IVP STA (16:51)
--- NOTE | 2022-08-01 16:57 | ED ---
General Adult HPI - General Chief complaint: Recheck/Abnormal Lab/Rx Stated complaint: Wound Vac Infection Time Seen by Provider: 08/01/22 16:22 Source: patient, RN notes reviewed Mode of arrival: ambulatory Limitations: no limitations - History of Present Illness Initial comments: This is a 62-year-old female presents to the emergency department for evaluation of generalized weakness, body aches, and loss of appetite, onset Wednesday. Patient states she has a wound care nurse that visits 3 times a week for wound vac care and dressing change on the healing abdominal wound. States her home care nurse expressed concern for sepsis given her wound and new onset fever. Patient states she did take a home Covid test yesterday which was negative. St ates she was seen by infectious disease for a recheck earlier in the week and was instructed to continue home care routine. States she also developed a rash that began . Complaints of loss of appetite as well as nausea and vomiting. Denies dizziness, cough, congestion, chest pain, shortness of breath, abdominal pain, dysuria, hematuria, and lower extremity edema. - Related Data Home Medications Medication Instructions Recorded Confirmed Ezetimibe [Zetia] 10 mg PO HS 01/16/22 08/01/22 FLUoxetine HCL [PROzac] 20 mg PO BID 06/02/22 08/01/22 Famotidine [Pepcid] 20 mg PO DAILY PRN 06/02/22 08/01/22 Rosuvastatin [Crestor] 10 mg PO HS 06/02/22 08/01/22 Metoprolol Tartrate [Lopressor] 12.5 mg PO BID 08/01/22 08/01/22 Previous Rx's Medication Instructions Recorded Acetaminophen Tab [Tylenol] 650 mg PO Q6HR PRN tab 06/08/22 Allergies Allergy/AdvReac Type Severity Reaction Status Date / Time hydromorphone [From Dilaudid] Allergy Nausea & Verified 08/01/22 16:09 Vomiting Penicillins Allergy Anaphylaxis Verified 08/01/22 16:09 Review of Systems ROS Statement: Those systems with pertinent positive or pertinent negative responses have been documented in the HPI. ROS Other: All systems not noted in ROS Statement are negative. Past Medical History Past Medical History: GERD/Reflux, Hyperlipidemia, Hypertension History of Any Multi-Drug Resistant Organisms: None Reported Past Surgical History: Bariatric Surgery, Bowel Resection, Breast Surgery Additional Past Surgical History / Comment(s): Breast augmentation, tummy tuck. x 2. lap band 2007 Past Anesthesia/Blood Transfusion Reactions: No Reported Reaction Past Psychological History: Anxiety Smoking Status: Former smoker Past Alcohol Use History: None Reported, Rare Past Drug Use History: None Reported - Past Family History Daughter(s) Family Medical History: Cancer Additional Family Medical History / Comment(s): Breast cancer. General Exam Limitations: no limitations General appearance: alert, in no apparent distress, other (This is an ill a ppearing well-developed female in no acute distress. Initial temperature 99.2, pulse 104, respirations 22, blood pressure 122/65, pulse ox 96% on room air.) Eye exam: Present: normal appearance, PERRL, EOMI. Absent: scleral icterus, conjunctival injection ENT exam: Present: mucous membranes dry Respiratory exam: Present: normal lung sounds bilaterally. Absent: respiratory distress, wheezes, rales, rhonchi, stridor, chest wall tenderness Cardiovascular Exam: Present: tachycardia, normal heart sounds GI/Abdominal exam: Present: soft, normal bowel sounds, other (Abdominal wound dressing with moderate amount of thick brownish drainage. ). Absent: distended, tenderness, guarding, rebound, rigid Extremities exam: Present: normal inspection, normal capillary refill. Absent: pedal edema Back exam: Absent: CVA tenderness (R), CVA tenderness (L) Neurological exam: Present: alert, oriented X3 Psychiatric exam: Present: flat affect Skin exam: Present: warm, dry, erythema (erythematous dry patchy regions extending from umbilical region to the right flank and extending up the chest wall) Course Vital Signs 08/01/22 08/01/22 08/01/22 16:05 17:15 18:56 Temperature 99.2 F 102.2 F H 99.2 F Pulse Rate 104 H 89 79 Pulse Rate [ Pulse Oximetery ] Respiratory 22 16 16 Rate Blood Pressure 122/65 135/80 119/66 Blood Pressure [Right Arm] O2 Sat by Pulse 96 95 94 L Oximetry 08/01/22 08/01/22 08/02/22 21:22 23:35 00:55 Temperature 97.7 F Pulse Rate 75 77 Pulse Rate [ Pulse Oximetery ] Respiratory 18 18 Rate Blood Pressure 114/82 98/58 Blood Pressure [Right Arm] O2 Sat by Pulse 95 Oximetry 08/02/22 08/02/22 08/02/22 01:00 02:22 08:00 Temperature 97.5 F L 97.6 F Pulse Rate 70 Pulse Rate [ 84 Pulse Oximetery ] Respiratory 18 18 18 Rate Blood Pressure 127/78 Blood Pressure 102/64 [Right Arm] O2 Sat by Pulse 96 96 Oximetry 08/02/22 15:55 Temperature 97.9 F Pulse Rate 79 Pulse Rate [ Pulse Oximetery ] Respiratory 18 Rate Blood Pressure 140/94 Blood Pressure [Right Arm] O2 Sat by Pulse 96 Oximetry - Reevaluation(s) Reevaluation #1: 08/01/22 19:30 Upon reevaluation, patient is moderately improved. States pain is significantly less and is tolerating sips of water. No nausea or vomiting at this time. Vital signs:T=99.2, HR=79, RR=16, MQ=479/66, SpO2=94% PE: alert and oriented x4; following commands appropriately; lung sounds CTA with no increased work of breathing; heart rate and rhythm regular; abdomen soft and non-tender; skin: chest wall and abdominal wall remain erythematous. Antibiotic infusing. CT pending. 08/01/22 21:20 Patient continues to feel improved at this time. Vital signs are stable. She will be admitted to the hospital for further evaluation and treatment. Patient and spouse are agreeable with this patient care. Medical Decision Making - Medical Decision Making This is a pleasant 62-year-old female who presents to the emergency department for evaluation of increased discomfort and erythema extending from a surgical site of the abdominal wall for which patient has had ongoing home care for poor wound healing. Upon exam, patient initially is feeling poorly and is ill-shakeel earing. SHe was given IV fluids, pain medicine, and started on an antibiotic while present to the emergency department. Patient reports significant improvement. She was given Tylenol for fever. Laboratory studies were obtained. Potassium was supplemented orally. CT of the abdomen and pelvis was obtained with no acute findings. Patient will be admitted to the hospital for IV antibiotics, evaluation per infectious disease, and further treatment. Patient and spouse were agreeable with this plan of care. This patient's care was discussed with my attending, . - Lab Data Result diagrams: 08/02/22 02:33 08/02/22 02:33 Lab Results 08/01/22 08/01/22 08/01/22 Range/Units 17:02 17:02 17:02 WBC 8.3 (3.8-10.6) k/uL RBC 4.27 (3.80-5.40) m/uL Hgb 11.7 (11.4-16.0) gm/dL Hct 36.3 (34.0-46.0) % MCV 84.9 D (80.0-100.0) fL MCH 27.4 (25.0-35.0) pg MCHC 32.3 (31.0-37.0) g/dL RDW 13.8 (11.5-15.5) % Plt Count 210 (150-450) k/uL MPV 8.3 Neutrophils % 79 % Lymphocytes % 11 % Monocytes % 6 % Eosinophils % 2 % Basophils % 1 % Neutrophils # 6.6 (1.3-7.7) k/uL Lymphocytes # 0.9 L (1.0-4.8) k/uL Monocytes # 0.5 (0-1.0) k/uL Eosinophils # 0.1 (0-0.7) k/uL Basophils # 0.0 (0-0.2) k/uL PT 10.3 (9.0-12.0) sec INR 0.9 (<1.2) APTT 26.4 (22.0-30.0) sec Sodium 133 L (137-145) mmol/L Potassium 4.0 (3.5-5.1) mmol/L Chloride 99 (98-107) mmol/L Carbon Dioxide 23 (22-30) mmol/L Anion Gap 11 mmol/L BUN 14 (7-17) mg/dL Creatinine 0.77 (0.52-1.04) mg/dL Est GFR (CKD-EPI)AfAm >90 (>60 ml/min/1.73 sqM) Est GFR (CKD-EPI)NonAf 82 (>60 ml/min/1.73 sqM) Glucose 103 H (74-99) mg/dL Plasma Lactic Acid Buster (0.7-2.0) mmol/L Calcium 8.7 (8.4-10.2) mg/dL Magnesium 1.6 (1.6-2.3) mg/dL Total Bilirubin 0.3 (0.2-1.3) mg/dL AST 51 H (14-36) U/L ALT 58 H (4-34) U/L Alkaline Phosphatase 76 (38-126) U/L Troponin I (0.000-0.034) ng/mL Total Protein 5.9 L (6.3-8.2) g/dL Albumin 3.5 (3.5-5.0) g/dL Coronavirus (PCR) (Not Detectd) 08/01/22 08/01/22 08/01/22 Range/Units 17:02 17:02 17:02 WBC (3.8-10.6) k/uL RBC (3.80-5.40) m/uL Hgb (11.4-16.0) gm/dL Hct (34.0-46.0) % MCV (80.0-100.0) fL MCH (25.0-35.0) pg MCHC (31.0-37.0) g/dL RDW (11.5-15.5) % Plt Count (150-450) k/uL MPV Neutrophils % % Lymphocytes % % Monocytes % % Eosinophils % % Basophils % % Neutrophils # (1.3-7.7) k/uL Lymphocytes # (1.0-4.8) k/uL Monocytes # (0-1.0) k/uL Eosinophils # (0-0.7) k/uL Basophils # (0-0.2) k/uL PT (9.0-12.0) sec INR (<1.2) APTT (22.0-30.0) sec Sodium (137-145) mmol/L Potassium (3.5-5.1) mmol/L Chloride (98-107) mmol/L Carbon Dioxide (22-30) mmol/L Anion Gap mmol/L BUN (7-17) mg/dL Creatinine (0.52-1.04) mg/dL Est GFR (CKD-EPI)AfAm (>60 ml/min/1.73 sqM) Est GFR (CKD-EPI)NonAf (>60 ml/min/1.73 sqM) Glucose (74-99) mg/dL Plasma Lactic Acid Buster 0.8 (0.7-2.0) mmol/L Calcium (8.4-10.2) mg/dL Magnesium (1.6-2.3) mg/dL Total Bilirubin (0.2-1.3) mg/dL AST (14-36) U/L ALT (4-34) U/L Alkaline Phosphatase (38-126) U/L Troponin I <0.012 (0.000-0.034) ng/mL Total Protein (6.3-8.2) g/dL Albumin (3.5-5.0) g/dL Coronavirus (PCR) Not Detected (Not Detectd) - EKG Data EKG shows normal: sinus rhythm Rate: normal EKG Comments: EKG obtained at 1724 shows sinus rhythm with nonspecific T-wave abnormality. Ventricular rate 85, OR interval 164, QRS duration 86, QT/QTC 352/394. Interpretation: Borderline ECG. - Radiology Data Radiology results: report reviewed, image reviewed Two-view chest x-ray was obtained. Report was reviewed in its entirety. Impression per Dr. Don is no active cardiopulmonary disease. Normal heart. No change. CT of the abdomen and pelvis with contrast was obtained. Report was reviewed in its entirety. Impression per Dr. Don his previous surgery. No evidence of renal obstruction. Multiple nonobstructing renal calculi. Disposition Clinical Impression: Cellulitis Disposition: ADMITTED IP TO THIS HOSP Condition: Serious Is patient prescribed a controlled substance at d/c from ED?: No
[2022-08-01] MEDS: SODIUM CHLORIDE 0.9% 1,000 ML IV STA ×2 (17:07→17:32)
[2022-08-01 17:18] LABS: Basophils % (A) 1 %; Eosinophils # (A) 0.1 k/uL (0-0.7); Eosinophils % (A) 2 %; HCT 36.3 % (34.0-46.0); HGB 11.7 gm/dL (11.4-16.0); Lymphocytes # (A) 0.9 k/uL (1.0-4.8); Lymphocytes % (A) 11 %; MCH 27.4 pg (25.0-35.0); MCHC 32.3 g/dL (31.0-37.0); Mean Platelet Volume 8.3; Monocytes # (A) 0.5 k/uL (0-1.0); Monocytes % (A) 6 %; Neutrophils # (A) 6.6 k/uL (1.3-7.7); Neutrophils % (A) 79 %; Platelet Count 210 k/uL (150-450); RBC 4.27 m/uL (3.80-5.40); RDW 13.8 % (11.5-15.5); WBC 8.3 k/uL (3.8-10.6)
[2022-08-01 17:19] LABS: MCV 84.9 fL (80.0-100.0)
[2022-08-01] MEDS ORDERED: ACETAMINOPHEN TAB 325 MG TAB PO STA (17:20)
[2022-08-01 17:21] LABS: INR 0.9 (<1.2); Prothrombin Time 10.3 sec (9.0-12.0)
[2022-08-01 17:22] LABS: Partial Thromboplastin Time 26.4 sec (22.0-30.0)
[2022-08-01] MEDS ORDERED: MORPHINE SULFATE 4 MG/ML SYRINGE IVP STA (17:24)
[2022-08-01 17:25] LABS: ALT 58 U/L (4-34); AST 51 U/L (14-36); African American GFR (CKD) >90 (>60 ml/min/1.73 sqM); Albumin 3.5 g/dL (3.5-5.0); Alkaline Phosphatase 76 U/L (38-126); Anion Gap 11 mmol/L; Blood Urea Nitrogen 14 mg/dL (7-17); Calcium 8.7 mg/dL (8.4-10.2); Carbon Dioxide 23 mmol/L (22-30); Chloride 99 mmol/L (98-107); Glucose 103 mg/dL (74-99); Magnesium 1.6 mg/dL (1.6-2.3); Non-African American GFR(CKD) 82 (>60 ml/min/1.73 sqM); Sodium 133 mmol/L (137-145); Total Bilirubin 0.3 mg/dL (0.2-1.3); Total Protein 5.9 g/dL (6.3-8.2)
[2022-08-01 17:28] LABS: Appearance,Urine Clear (Clear); Bilirubin,Urine Negative (Negative); Blood,Urine Negative (Negative); Color,Urine Yellow; Glucose,Urine (UA) Negative (Negative); Ketones,Urine Negative (Negative); Leukocyte Esterase,Urine Large (Negative); Mucus,Urine Rare /hpf; Nitrite,Urine Negative (Negative); Protein,Urine 1+ (Negative); RBC,Urine 3 /hpf (0-5); Specific Gravity,Urine 1.018 (1.001-1.035); Squamous Epithelial Cell,Urine 1 /hpf (0-4); Urobilinogen,Urine <2.0 mg/dL (<2.0); WBC,Urine 20 /hpf (0-5)
[2022-08-01] MEDS ORDERED: SODIUM CHLORIDE 0.9% 1,000 ML IV STA ×2 (18:11→19:57)
[2022-08-01] MEDS ORDERED: VANCOMYCIN IV PER PHARMACY 1 EACH MISC MISCELLANE PRN ×2 (18:13→21:26)
[2022-08-01] MEDS ORDERED: VANCOMYCIN 1,500 MG in SODIUM CHLORIDE 0.9% 250 ML IVPB STA (18:17)
[2022-08-01] MEDS ORDERED: SODIUM CHLORIDE 0.9% 500 ML 500 ML IV STA (19:57)
--- NOTE | 2022-08-01 20:03 | CT ---
EXAMINATION TYPE: CT abdomen pelvis w con DATE OF EXAM: 08/01/2022 COMPARISON: None HISTORY: PT HAD SX ON LAP BAND X1 MONTH AGO. PT HAS A WOUND VAC AND C/O ABDOMINAL PAIN. CT DLP: 1263.2 mGycm Automated exposure control for dose reduction was used. CONTRAST: Performed with IV Contrast, patient injected with 100 mL of Isovue 300. Images obtained from the diaphragm to the floor the pelvis with the IV contrast. There is some mild pleural thickening and atelectasis at the posterior lung bases. There is gastric b ariatric surgery. Liver and spleen are intact no evidence of pancreatic mass. The bowel is not dilate d. Gallbladder appears normal. There is no adrenal mass. Kidneys have normal size. No hydronephrosis. Ureters are not dilated. There is 6 mm calculus lateral left kidney. There are several calculi lower pole left kidney. No retroperi toneal adenopathy. There is stent in the iliac veins bilaterally. The bladder distends smoothly. No i nguinal hernia. No free fluid in the pelvis. No pelvic mass. No mesenteric edema. No ascites or free air. No sign of a bowel obstruction. Appendix not seen. No si gn of thickened appendix. Delayed images show normal renal excretion. The lumbar vertebrae have normal spacing. There is a minimal degenerative first-degree L4-5 spondylol isthesis. No lumbar compression fracture. Bony pelvis is intact. The hip joints are intact. IMPRESSION: Previous surgery. No evidence of renal obstruction. Multiple nonobstructing left renal calculi. Mild pleural thickening and atelectasis at the lung bases.
--- NOTE | 2022-08-01 20:04 | XR ---
EXAMINATION TYPE: XR chest 2V DATE OF EXAM: 08/01/2022 COMPARISON: 06/06/2022 HISTORY: Weakness TECHNIQUE: 2 views FINDINGS: There is no heart failure nor confluent pneumonic infiltrate. There are chest leads. Costop hrenic angles are clear. IMPRESSION: No active cardiopulmonary disease. Normal heart. No change.
[2022-08-01] MEDS ORDERED: MORPHINE SULFATE 2 MG/ML SYRINGE IVP STA (20:35)
[2022-08-01] MEDS ORDERED: NALOXONE 0.4 MG/ML 1 ML VIAL IV PRN (21:21)
[2022-08-01] MEDS: SODIUM CHLORIDE 0.9% 1,000 ML IV SCH (21:35)
[2022-08-01] MEDS: ACETAMINOPHEN TAB 325 MG TAB PO PRN (23:35)
[2022-08-02] MEDS: MORPHINE SULFATE 4 MG/ML SYRINGE IV PRN ×5 (00:40→22:06)
[2022-08-02] MEDS: SODIUM CHLORIDE 0.9% 1,000 ML IV SCH ×3 (01:25→22:24)
[2022-08-02 02:42] LABS: Basophils % (A) 1 %; Eosinophils # (A) 0.2 k/uL (0-0.7); Eosinophils % (A) 4 %; HCT 32.3 % (34.0-46.0); HGB 10.5 gm/dL (11.4-16.0); Hypochromasia Slight; Lymphocytes # (A) 1.3 k/uL (1.0-4.8); Lymphocytes % (A) 20 %; MCH 28.1 pg (25.0-35.0); MCHC 32.4 g/dL (31.0-37.0); MCV 86.7 fL (80.0-100.0); Mean Platelet Volume 8.7; Monocytes # (A) 0.6 k/uL (0-1.0); Monocytes % (A) 9 %; Neutrophils # (A) 4.1 k/uL (1.3-7.7); Neutrophils % (A) 64 %; Platelet Count 188 k/uL (150-450); RBC 3.72 m/uL (3.80-5.40); RDW 13.9 % (11.5-15.5); WBC 6.3 k/uL (3.8-10.6)
[2022-08-02 02:53] LABS: African American GFR (CKD) >90 (>60 ml/min/1.73 sqM); Anion Gap 9 mmol/L; Blood Urea Nitrogen 13 mg/dL (7-17); Calcium 7.7 mg/dL (8.4-10.2); Carbon Dioxide 22 mmol/L (22-30); Chloride 106 mmol/L (98-107); Glucose 115 mg/dL (74-99); Non-African American GFR(CKD) >90 (>60 ml/min/1.73 sqM); Potassium 3.4 mmol/L (3.5-5.1); Sodium 137 mmol/L (137-145)
[2022-08-02] MEDS: ACETAMINOPHEN TAB 325 MG TAB PO PRN ×2 (06:19→15:23)
[2022-08-02] MEDS ORDERED: VANCOMYCIN 1,500 MG in SODIUM CHLORIDE 0.9% 250 ML IVPB SCH (07:00)
[2022-08-02] MEDS: FAMOTIDINE 20 MG TAB PO SCH ×2 (09:09→22:06)
[2022-08-02] MEDS ORDERED: POTASSIUM CHLORIDE ER 20 MEQ TAB.ER PO STA (10:47)
[2022-08-02] MEDS ORDERED: diphenhydrAMINE 50 MG/ML 1 ML VIAL IVP STA (14:50)
[2022-08-02] MEDS ORDERED: DEXAMETHASONE SOD PHOSPHATE 10 MG/ML 1 ML VIAL IVP STA (14:51)
[2022-08-02] MEDS: ONDANSETRON 4 MG/2 ML VIAL IVP PRN (15:19)
[2022-08-02] MEDS: valACYclovir HCL 1,000 MG TABLET PO SCH (16:00)
[2022-08-02] MEDS: HEPARIN SODIUM,PORCINE/PF 5,000 UNIT/0.5 ML SYRINGE SQ SCH (16:07)
[2022-08-02] MEDS: ALPRAZolam 0.25 MG TAB PO PRN ×2 (16:40→22:18)
[2022-08-02] MEDS: ATORVASTATIN 20 MG TAB PO SCH (22:06)
[2022-08-02] MEDS: FLUoxetine HCL 20 MG CAP PO SCH (22:06)
[2022-08-02] MEDS: EZETIMIBE 10 MG TAB PO SCH (22:06)
[2022-08-02] MEDS: METOPROLOL TARTRATE 12.5 MG TAB PO SCH (22:06)
--- NOTE | 2022-08-02 22:47 | P.HPIM ---
History of Present Illness H&P Date: 08/02/22 Chief Complaint: wound infection Patient is a 62-year-old female with a known history of recent abdominal wall abscess and infected Lap-Band port while in the hospital from 06/02/2022 to 06/09/2022. Patient presents to ER with complaints of generalized weakness generalized weakn ess and body aches and loss of appetite since Wednesday. Patient does have right sided anterior abdominal wound and wound care nurse been asked 3 times per week and also has been on wound VAC due to nonhealing wound. Home care nurse expresses concern for possible infection and sepsis due to new onset fever. Patient did take COVID test at home which is negative. Patient is on follow-up with wound care clinic. Currently not on antibiotics. Patient states that she also developed a rash currently wound site on . Patient is also having decreased appetite and nausea and vomiting and decreased oral intake. Denies any chest pain or shortness of. No abdominal pain. No constipation. No leg swelling. CT of the abdomen pelvis showed previous surgery. No evidence of renal obstruction. Multiple nonobstructing renal calculi left side. Mild pleural thickening and atelectasis of the lung bases. Chest x-ray showed no acute cardiopulmonary disease. Normal heart. EKG showed sinus rhythm Laboratory data showed WBC 6.3 hemoglobin 10.4 and platelets 188 Sodium 137 potassium 3.4 chloride 106 bicarb is 22 BUN 13 and creatinine 0.69 and blood sugar is 114 calcium 7.7 Urinalysis showed large leukocyte esterase and elevated WBC count. Patient denied any dysuria or hematuria. Coronavirus PCR not detected. Review of Systems Constitutional: Patient denies any fever or chills . no Generalized weakness. Abdomen: Patient denied any nausea or vomiting or abd. pain at the wound site. Cardiovascular: Patient denies any chest pain or short of breath no palpitations. Respiratory: patient denied any cough . no sputum production. No shortness of breath Neurologic: Patient denied any numbness or tingling headache. Musculoskeletal: Patient denies any complaints of joint swelling or deformity. Skin: Negative Psychiatric: Negative Endocrine: No heat or cold intolerance. No recent weight gain. Genitourinary: No dysuria or hematuria. All other 14 point ROS negative except the above Past Medical History Past Medical History: GERD/Reflux, Hyperlipidemia, Hypertension History of Any Multi-Drug Resistant Organisms: None Reported Past Surgical History: Bariatric Surgery, Bowel Resection, Breast Surgery Additional Past Surgical History / Comment(s): Breast augmentation, tummy tuck. x 2. lap band 2007 Past Anesthesia/Blood Transfusion Reactions: No Reported Reaction Past Psychological History: Anxiety Smoking Status: Former smoker Past Alcohol Use History: None Reported, Rare Past Drug Use History: None Reported - Past Family History Daughter(s) Family Medical History: Cancer Additional Family Medical History / Comment(s): Breast cancer. Medications and Allergies Home Medications Medication Instructions Recorded Confirmed Type Ezetimibe [Zetia] 10 mg PO HS 01/16/22 08/01/22 History FLUoxetine HCL [PROzac] 20 mg PO BID 06/02/22 08/01/22 History Famotidine [Pepcid] 20 mg PO DAILY PRN 06/02/22 08/01/22 History Rosuvastatin [Crestor] 10 mg PO HS 06/02/22 08/01/22 History Acetaminophen Tab [Tylenol] 650 mg PO Q6HR PRN tab 06/08/22 08/01/22 Rx Metoprolol Tartrate [Lopressor] 12.5 mg PO BID 08/01/22 08/01/22 History Gabapentin [Neurontin] 100 mg PO TID 7 Days #21 cap 08/07/22 Rx HYDROcodone/APAP 5-325MG [[place] 1 each PO Q6HR PRN 3 Days #9 tab 08/07/22 Rx 5-325] cefUROXime axetiL [Cefuroxime] 500 mg PO BID 2 Days #4 tab 08/07/22 Rx valACYclovir HCL [Valtrex] 1,000 mg PO Q8HR 2 Days #6 tab 08/07/22 Rx Allergies Allergy/AdvReac Type Severity Reaction Status Date / Time hydromorphone [From Dilaudid] Allergy Nausea & Verified 08/01/22 16:09 Vomiting Penicillins Allergy Anaphylaxis Verified 08/01/22 16:09 Physical Exam Vitals: Vital Signs Temp Pulse Pulse Resp BP BP Pulse Ox 08/02/22 08:00 97.6 F 70 18 127/78 96 08/02/22 02:22 18 08/02/22 01:00 97.5 F L 84 18 102/64 96 08/02/22 00:55 97.7 F 08/01/22 23:35 77 18 98/58 95 08/01/22 21:22 75 18 114/82 08/01/22 18:56 99.2 F 79 16 119/66 94 L 08/01/22 17:15 102.2 F H 89 16 135/80 95 08/01/22 16:05 99.2 F 104 H 22 122/65 96 Intake and Output 08/01/22 08/02/22 08/02/22 22:59 06:59 14:59 Other: Weight 85.275 kg PHYSICAL EXAMINATION: Patient is lying in the bed comfortably, no acute distress, awake alert and oriented.. HEENT: Normocephalic. Neck is supple. Pupils reactive. Nostrils clear. Oral cavity is moist. Neck reveals no JVD, carotid bruits, or thyromegaly. CHEST EXAMINATION: Trachea is central. Symmetrical expansion. Lung francois clear to auscultation and percussion. Patient does have right anterior abdominal wound with wound VAC in place. Rash over the lower posterior chest wall with tenderness to touch. CARDIAC: Normal S1, S2 with no gallops. No murmurs ABDOMEN: Soft. Bowel sounds present. Nontender. No organomegaly. No abdominal bruits. Right anterior abdominal wound with wound VAC in place. Extremities: reveal no edema. No clubbing or cyanosis Neurologically awake, alert, oriented x3 with well-coordinated movements. No focal deficits noted Skin: No rash or skin lesions. Psychiatric: Coperative. Nonsuicidal, anxious. Musculoskeletal: No joint swelling or deformity. Normal range of motion. Results CBC & Chem 7: 08/06/22 06:30 08/06/22 06:30 Labs: Abnormal Lab Results - Last 24 Hours (Table) 08/01/22 08/01/22 08/01/22 Range/Units 17:02 17:02 Unknown RBC (3.80-5.40) m/uL Hgb (11.4-16.0) gm/dL Hct (34.0-46.0) % Lymphocytes # 0.9 L (1.0-4.8) k/uL Sodium 133 L (137-145) mmol/L Potassium (3.5-5.1) mmol/L Glucose 103 H (74-99) mg/dL Calcium (8.4-10.2) mg/dL AST 51 H (14-36) U/L ALT 58 H (4-34) U/L Total Protein 5.9 L (6.3-8.2) g/dL Urine Protein 1+ H (Negative) Ur Leukocyte Esterase Large H (Negative) Urine WBC 20 H (0-5) /hpf Urine Mucus Rare H (None) /hpf 08/02/22 08/02/22 Range/Units 02:33 02:33 RBC 3.72 L (3.80-5.40) m/uL Hgb 10.5 L (11.4-16.0) gm/dL Hct 32.3 L (34.0-46.0) % Lymphocytes # (1.0-4.8) k/uL Sodium (137-145) mmol/L Potassium 3.4 L (3.5-5.1) mmol/L Glucose 115 H (74-99) mg/dL Calcium 7.7 L (8.4-10.2) mg/dL AST (14-36) U/L ALT (4-34) U/L Total Protein (6.3-8.2) g/dL Urine Protein (Negative) Ur Leukocyte Esterase (Negative) Urine WBC (0-5) /hpf Urine Mucus (None) /hpf Thrombosis Risk Factor Assmnt - DVT/VTE Prophylaxis DVT/VTE Prophylaxis: Pharmacologic Prophylaxis ordered Assessment and Plan Assessment: Abdominal wound infection with surrounding cellulitis. History of abdominoplasty with revision complicated by seroma and nonhealing wound. Hypertension Hyperlipidemia GERD History Lap-Band surgery in 2006 Clear history of smoking GI and DVT prophylaxis Plan: Patient will be continued on IV hydration with normal saline and antibiotics in the form of vancomycin. ID consult for further evaluation.Consult wound care. Patient also developed redness and macular rash over the left lower chest. Was given a dose of IV dexamethasone and Benadryl. Concern for herpes zoster. Continue home medications and follow-up closely. Time with Patient: Greater than 30
--- NOTE | 2022-08-02 23:39 | P.CONS ---
History of Present Illness - Reason for Consult Consult date: 08/02/22 Abdominal wall abscess and cellulitis Requesting physician: Debi Duran - Chief Complaint Fever and not feeling well X few days - History of Present Illness Patient is a 62-year-old female with a past medical history significant for abdominal Lap-Band infection in this patient status post of one of the Lap-Band and had lower abdominal wound currently being treated with a wound VAC patient presenting to the ER yesterday afternoon for evaluation of generalized weakness body aches loss of appetite symptom has been going on since last Wednesday patient mention developing a redness to the right side of the chest wall and subsequently also developed a rash to the left lower chest wall is currently it to be erythematous rash with some medical and did have a burning pain associated with it 6-7 out of 10 no radiation patient denies having any chest pain or shortness of breath or cough no abdominal pain or any diarrhea on presentation to the hospital patient did have a fever of 102.2 F, patient did have a normal white count kidney function has been normal liver enzymes are mildly elevated patient did have a positive UA influenza and COVID testing was negative patient did have a CT of abdominal pelvis no evidence of acute intra- abdominal pathology chest x-ray was negative patient was started on vancomycin and admitted to hospital infectious disease was consulted for further management Review of Systems Positive point has been mentioned in the HPI rest of the systems are negative Past Medical History Past Medical History: GERD/Reflux, Hyperlipidemia, Hypertension History of Any Multi-Drug Resistant Organisms: None Reported Past Surgical History: Bariatric Surgery, Bowel Resection, Breast Surgery Additional Past Surgical History / Comment(s): Breast augmentation, tummy tuck. x 2. lap band 2006 Past Anesthesia/Blood Transfusion Reactions: No Reported Reaction Past Psychological History: Anxiety Smoking Status: Former smoker Past Alcohol Use History: None Reported, Rare Past Drug Use History: None Reported - Past Family History Daughter(s) Family Medical History: Cancer Additional Family Medical History / Comment(s): Breast cancer. Medications and Allergies Home Medications Medication Instructions Recorded Confirmed Type Ezetimibe [Zetia] 10 mg PO HS 01/16/22 08/01/22 History FLUoxetine HCL [PROzac] 20 mg PO BID 06/02/22 08/01/22 History Famotidine [Pepcid] 20 mg PO DAILY PRN 06/02/22 08/01/22 History Rosuvastatin [Crestor] 10 mg PO HS 06/02/22 08/01/22 History Acetaminophen Tab [Tylenol] 650 mg PO Q6HR PRN tab 06/08/22 08/01/22 Rx Metoprolol Tartrate [Lopressor] 12.5 mg PO BID 08/01/22 08/01/22 History Gabapentin [Neurontin] 100 mg PO TID 7 Days #21 cap 08/07/22 Rx HYDROcodone/APAP 5-325MG [[place] 1 each PO Q6HR PRN 3 Days #9 tab 08/07/22 Rx 5-325] cefUROXime axetiL [Cefuroxime] 500 mg PO BID 2 Days #4 tab 08/07/22 Rx valACYclovir HCL [Valtrex] 1,000 mg PO Q8HR 2 Days #6 tab 08/07/22 Rx Allergies Allergy/AdvReac Type Severity Reaction Status Date / Time hydromorphone [From Dilaudid] Allergy Nausea & Verified 08/01/22 16:09 Vomiting Penicillins Allergy Anaphylaxis Verified 08/01/22 16:09 Physical Exam Vitals: Vital Signs Temp Pulse Pulse Resp BP BP Pulse Ox 08/02/22 08:00 97.6 F 70 18 127/78 96 08/02/22 02:22 18 08/02/22 01:00 97.5 F L 84 18 102/64 96 08/02/22 00:55 97.7 F 08/01/22 23:35 77 18 98/58 95 08/01/22 21:22 75 18 114/82 08/01/22 18:56 99.2 F 79 16 119/66 94 L 08/01/22 17:15 102.2 F H 89 16 135/80 95 08/01/22 16:05 99.2 F 104 H 22 122/65 96 Intake and Output 08/01/22 08/02/22 08/02/22 22:59 06:59 14:59 Other: Weight 85.275 kg GENERAL DESCRIPTION: Middle-aged F[place]ale lying in bed, no distress. No tachypnea or accessory muscle of respiration use. HEENT: Shows Pallor , no scleral icterus. Oral mucous membrane is dry. No pharyngeal erythema or thrush NECK: Trachea central, no thyromegaly. LUNGS: Unlabored breathing. Clear to auscultation anteriorly. No wheeze or crackle. HEART: S1, S2, regular rate and rhythm. No loud murmur ABDOMEN: Soft, no abdominal wound was clean no surrounding redness or drainage EXTREMITIES: No edema of feet. SKIN: Vesicular rash to the T1 dermatome on the left side NEUROLOGICAL: The patient is awake, alert, oriented x3, mood and affect normal. Results CBC & Chem 7: 08/06/22 06:30 08/06/22 06:30 Labs: Abnormal Lab Results - Last 24 Hours (Table) 08/01/22 08/01/22 08/01/22 Range/Units 17:02 17:02 Unknown RBC (3.80-5.40) m/uL Hgb (11.4-16.0) gm/dL Hct (34.0-46.0) % Lymphocytes # 0.9 L (1.0-4.8) k/uL Sodium 133 L (137-145) mmol/L Potassium (3.5-5.1) mmol/L Glucose 103 H (74-99) mg/dL Calcium (8.4-10.2) mg/dL AST 51 H (14-36) U/L ALT 58 H (4-34) U/L Total Protein 5.9 L (6.3-8.2) g/dL Urine Protein 1+ H (Negative) Ur Leukocyte Esterase Large H (Negative) Urine WBC 20 H (0-5) /hpf Urine Mucus Rare H (None) /hpf 08/02/22 08/02/22 Range/Units 02:33 02:33 RBC 3.72 L (3.80-5.40) m/uL Hgb 10.5 L (11.4-16.0) gm/dL Hct 32.3 L (34.0-46.0) % Lymphocytes # (1.0-4.8) k/uL Sodium (137-145) mmol/L Potassium 3.4 L (3.5-5.1) mmol/L Glucose 115 H (74-99) mg/dL Calcium 7.7 L (8.4-10.2) mg/dL AST (14-36) U/L ALT (4-34) U/L Total Protein (6.3-8.2) g/dL Urine Protein (Negative) Ur Leukocyte Esterase (Negative) Urine WBC (0-5) /hpf Urine Mucus (None) /hpf Microbiology - Last 24 Hours (Table) 08/01/22 Unknown Urine Culture - Preliminary Urine,Clean Catch Assessment and Plan (1) Shingles rash Status: Acute Code(s): B02.9 - ZOSTER WITHOUT COMPLICATIONS SNOMED Code(s): 9753214 (2) UTI (urinary tract infection) Status: Acute Code(s): N39.0 - URINARY TRACT INFECTION, SITE NOT SPECIFIED SNOMED Code(s): 46515740 Plan: 1patient presented to hospital with a fever weakness lethargy which is likely multifactorial in this patient with a positive likely Concerning for a symptomatic urinary tract infection, likely from enteric gram- negative pathogen. 2patient with development of rash to the left lower chest wall likely suspicious for shingles. 3penicillin allergy that would limit the number of antibiotics safe to use. 4discontinue vancomycin. 5start the patient on Rocephin 2 g daily and Valtrex 1 g every 8 hours We will follow on clinical condition and cultures to further adjust medication if needed Thank you for this consultation will follow this patient along with you Time with Patient: Greater than 30
[2022-08-03] MEDS: valACYclovir HCL 1,000 MG TABLET PO SCH ×4 (00:01→23:05)
[2022-08-03] MEDS: HEPARIN SODIUM,PORCINE/PF 5,000 UNIT/0.5 ML SYRINGE SQ SCH ×4 (00:01→23:05)
[2022-08-03] MEDS: FAMOTIDINE 20 MG TAB PO SCH ×2 (08:05→21:30)
[2022-08-03] MEDS: METOPROLOL TARTRATE 12.5 MG TAB PO SCH ×2 (08:05→21:30)
[2022-08-03] MEDS: FLUoxetine HCL 20 MG CAP PO SCH ×2 (08:06→21:30)
[2022-08-03] MEDS: MORPHINE SULFATE 4 MG/ML SYRINGE IV PRN ×2 (08:14→19:21)
[2022-08-03 09:31] LABS: African American GFR (CKD) 114.5 (60.0-200.0); Anion Gap 8.6 mmol/L (10.00-18.00); BUN/Creat Ratio 18.35 Ratio (12.00-20.00); Blood Urea Nitrogen 10.2 mg/dL (9.0-27.0); Calcium 8.2 mg/dL (8.7-10.3); Carbon Dioxide 22.6 mmol/L (20.0-27.5); Non-African American GFR(CKD) 98.8 (60.0-200.0); Potassium 4.4 mmol/L (3.5-5.5)
[2022-08-03 09:34] LABS: Basophils # (A) 0.03 X 10*3/uL (0.00-0.10); Basophils % (A) 0.4 %; Eosinophils # (A) 0 X 10*3/uL (0.04-0.35); Eosinophils % (A) 0 %; HCT 30.3 % (37.2-46.3); HGB 9.7 g/dL (12.0-15.0); Lymphocytes # (A) 0.81 X 10*3/uL (0.90-5.00); MCH 27.6 pg (27.0-32.0); MCV 86.3 fL (80.0-97.0); Mean Platelet Volume 10.9 fL (9.5-12.2); Monocytes # (A) 0.32 X 10*3/uL (0.20-1.00); Monocytes % (A) 4.3 %; NRBC Per 100 WBC 0 /100 WBCS (0.0-0.0); Neutrophils # (A) 6.13 X 10*3/uL (1.80-7.70); Neutrophils % (A) 83.3 %; Platelet Count 246 X 10*3/uL (140-440); RBC 3.51 X 10*6/uL (4.10-5.20); RDW 14.8 % (11.5-14.5); WBC 7.36 X 10*3/uL (4.50-10.00)
[2022-08-03] MEDS: GABAPENTIN 100 MG CAP PO SCH ×2 (17:30→21:30)
[2022-08-03] MEDS: SODIUM CHLORIDE 0.9% 1,000 ML IV SCH ×2 (18:46→19:17)
[2022-08-03] MEDS: ALPRAZolam 0.25 MG TAB PO PRN (21:30)
[2022-08-03] MEDS: EZETIMIBE 10 MG TAB PO SCH (21:30)
[2022-08-03] MEDS: ATORVASTATIN 20 MG TAB PO SCH (21:30)
--- NOTE | 2022-08-04 01:38 | P.PN ---
Subjective Progress Note Date: 08/03/22 Patient is a 62-year-old female with a known history of recent abdominal wall abscess and infected Lap-Band port while in the hospital from 06/02/2022 to 06/09/2022. Patient presents to ER with complaints of generalized weakness generalized weakness and body aches and loss of appetite since Wednesday. Patient does have right sided anterior abdominal wound and wound care nurse been asked 3 times per week and also has been on wound VAC due to nonhealing wound. Home care nurse expresses concern for possible infection and sepsis due to new onset fever. Patient did take COVID test at home which is negative. Patient is on follow-up with wound care clinic. Currently not on antibiotics. Patient states that she also developed a rash currently wound site on . Patient is also having decreased appetite and nausea and vomiting and decreased oral intake. Denies any chest pain or shortness of. No abdominal pain. No constipation. No leg swelling. CT of the abdomen pelvis showed previous surgery. No evidence of renal obstruction. Multiple nonobstructing renal calculi left side. Mild pleural thickening and atelectasis of the lung bases. Chest x-ray showed no acute cardiopulmonary disease. Normal heart. EKG showed sinus rhythm Laboratory data showed WBC 6.3 hemoglobin 10.4 and platelets 188 Sodium 137 potassium 3.4 chloride 106 bicarb is 22 BUN 13 and creatinine 0.69 and blood sugar is 114 calcium 7.7 Urinalysis showed large leukocyte esterase and elevated WBC count. Patient denied any dysuria or hematuria. Coronavirus PCR not detected. 08/03/2022 Patient is ambulating the bed. Awake alert and oriented x3. He is very anxious. Requesting Benadryl for sleep. Patient is also complaining of tenderness and burning sensation of the left lower back. Patient is being continued on Valtrex for shingles and Neurontin was added. Onexam antibiotics in the form of ceftriaxone abdominal wall wound infection. Wound VAC is in place. ID is on board. Patient has been afebrile. No nausea vomiting abdominal pain or diarrhea. No chest pain or shortness of breath. No cough or sputum production. Current medications reviewed. Objective - Vital Signs Vital signs: Vital Signs Temp 97.8 F 08/03/22 20:00 Pulse 79 08/03/22 20:00 Resp 17 08/03/22 20:00 BP 129/79 08/03/22 20:00 Pulse Ox 96 08/03/22 20:00 FiO2 Intake & Output 08/03/22 08/03/22 08/04/22 06:59 18:59 06:59 Intake Total 1080 Balance 1080 Intake: Oral 1080 Other: # Voids 2 3 - Exam PHYSICAL EXAMINATION: Patient is lying in the bed comfortably, no acute distress, awake alert and oriented.. HEENT: Normocephalic. Neck is supple. Pupils reactive. Nostrils clear. Oral cavity is moist. Neck reveals no JVD, carotid bruits, or thyromegaly. CHEST EXAMINATION: Trachea is central. Symmetrical expansion. Lung francois clear to auscultation and percussion. Patient does have Rash over the lower posterior chest wall with tenderness to touch. CARDIAC: Normal S1, S2 with no gallops. No murmurs ABDOMEN: Soft. Bowel sounds present. Nontender. No organomegaly. No abdominal bruits. Right anterior abdominal wound with wound VAC in place. Extremities: reveal no edema. No clubbing or cyanosis Neurologically awake, alert, oriented x3 with well-coordinated movements. No focal deficits noted Skin: No rash or skin lesions. Psychiatric: Coperative. Nonsuicidal, anxious. Musculoskeletal: No joint swelling or deformity. Normal range of motion. - Labs CBC & Chem 7: 08/03/22 03:39 08/03/22 03:39 Labs: Abnormal Lab Results - Last 24 Hours (Table) 08/03/22 08/03/22 Range/Units 03:39 03:39 RBC 3.51 L (4.10-5.20) X 10*6/uL Hgb 9.7 L (12.0-15.0) g/dL Hct 30.3 L (37.2-46.3) % RDW 14.8 H (11.5-14.5) % Immature Gran # 0.07 H (0.00-0.04) X 10*3/uL Lymphocytes # 0.81 L (0.90-5.00) X 10*3/uL Eosinophils # 0 L (0.04-0.35) X 10*3/uL Anion Gap 8.60 L (10.00-18.00) mmol/L Glucose 214 H (70-110) mg/dL Calcium 8.2 L (8.7-10.3) mg/dL Microbiology - Last 24 Hours (Table) 08/01/22 16:55 Blood Culture - Preliminary Blood No Growth after 48 hours 08/01/22 16:59 Blood Culture - Preliminary Blood No Growth after 48 hours 08/01/22 Unknown Urine Culture - Final Urine,Clean Catch Assessment and Plan Assessment: Abdominal wound infection with surrounding cellulitis. History of abdominoplasty with revision complicated by seroma and nonhealing wound. Hypertension Hyperlipidemia GERD History Lap-Band surgery in 2006 Clear history of smoking GI and DVT prophylaxis Plan: Patient will be continued on IV hydration with normal saline and antibiotics in the form of vancomycin. ID consult for further evaluation.Consult wound care. Patient also developed redness and macular rash over the left lower chest. Was given a dose of IV dexamethasone and Benadryl. Concern for herpes zoster. Continue home medications and follow-up closely.
[2022-08-04] MEDS: SODIUM CHLORIDE 0.9% 1,000 ML IV SCH ×2 (04:12→12:59)
[2022-08-04] MEDS: valACYclovir HCL 1,000 MG TABLET PO SCH ×3 (08:30→23:14)
[2022-08-04] MEDS: ACETAMINOPHEN TAB 325 MG TAB PO PRN ×2 (08:31→23:13)
[2022-08-04] MEDS: GABAPENTIN 100 MG CAP PO SCH ×3 (08:31→19:56)
[2022-08-04] MEDS: FLUoxetine HCL 20 MG CAP PO SCH ×2 (08:32→19:57)
[2022-08-04] MEDS: MORPHINE SULFATE 4 MG/ML SYRINGE IV PRN ×2 (08:32→14:27)
[2022-08-04] MEDS: METOPROLOL TARTRATE 12.5 MG TAB PO SCH ×2 (08:32→19:56)
[2022-08-04] MEDS: FAMOTIDINE 20 MG TAB PO SCH ×2 (08:32→19:56)
[2022-08-04] MEDS: HEPARIN SODIUM,PORCINE/PF 5,000 UNIT/0.5 ML SYRINGE SQ SCH ×3 (08:32→23:14)
[2022-08-04] MEDS: ALPRAZolam 0.25 MG TAB PO PRN ×3 (08:37→23:13)
[2022-08-04 10:39] LABS: Basophils # (A) 0.05 X 10*3/uL (0.00-0.10); Basophils % (A) 0.4 %; Eosinophils # (A) 0.02 X 10*3/uL (0.04-0.35); Eosinophils % (A) 0.1 %; HCT 31.8 % (37.2-46.3); HGB 10.3 g/dL (12.0-15.0); Immature Grans, Automated 2.3 %; Lymphocytes # (A) 2.67 X 10*3/uL (0.90-5.00); Lymphocytes % (A) 18.8 %; MCH 27.8 pg (27.0-32.0); MCHC 32.4 g/dL (32.0-37.0); MCV 85.9 fL (80.0-97.0); Mean Platelet Volume 10.8 fL (9.5-12.2); Monocytes # (A) 0.78 X 10*3/uL (0.20-1.00); Monocytes % (A) 5.5 %; NRBC Per 100 WBC 0.1 /100 WBCS (0.0-0.0); Neutrophils # (A) 10.38 X 10*3/uL (1.80-7.70); Neutrophils % (A) 72.9 %; Platelet Count 308 X 10*3/uL (140-440); RDW 15.2 % (11.5-14.5); WBC 14.22 X 10*3/uL (4.50-10.00)
[2022-08-04 11:28] LABS: African American GFR (CKD) 111.6 (60.0-200.0); Anion Gap 9.4 mmol/L (10.00-18.00); BUN/Creat Ratio 25.17 Ratio (12.00-20.00); Blood Urea Nitrogen 15.1 mg/dL (9.0-27.0); Calcium 8.6 mg/dL (8.7-10.3); Carbon Dioxide 21.6 mmol/L (20.0-27.5); Non-African American GFR(CKD) 96.3 (60.0-200.0); Potassium 4.3 mmol/L (3.5-5.5)
[2022-08-04] MEDS: guaiFENesin 600 MG TABLET.ER PO SCH ×2 (12:59→19:56)
--- NOTE | 2022-08-04 15:01 | P.PN ---
Subjective Progress Note Date: 08/04/22 Patient is a 62-year-old female with a known history of recent abdominal wall abscess and infected Lap-Band port while in the hospital from 06/02/2022 to 06/09/2022. Patient presents to ER with complaints of generalized weakness generalized weakness and body aches and loss of appetite since Wednesday. Patient does have right sided anterior abdominal wound and wound care nurse been asked 3 times per week and also has been on wound VAC due to nonhealing wound. Home care nurse expresses concern for possible infection and sepsis due to new onset fever. Patient did take COVID test at home which is negative. Patient is on follow-up with wound care clinic. Currently not on antibiotics. Patient states that she also developed a rash currently wound site on . Patient is also having decreased appetite and nausea and vomiting and decreased oral intake. Denies any chest pain or shortness of. No abdominal pain. No constipation. No leg swelling. CT of the abdomen pelvis showed previous surgery. No evidence of renal obstruction. Multiple nonobstructing renal calculi left side. Mild pleural thickening and atelectasis of the lung bases. Chest x-ray showed no acute cardiopulmonary disease. Normal heart. EKG showed sinus rhythm Laboratory data showed WBC 6.3 hemoglobin 10.4 and platelets 188 Sodium 137 potassium 3.4 chloride 106 bicarb is 22 BUN 13 and creatinine 0.69 and blood sugar is 114 calcium 7.7 Urinalysis showed large leukocyte esterase and elevated WBC count. Patient denied any dysuria or hematuria. Coronavirus PCR not detected. 08/03/2022 Patient is ambulating the bed. Awake alert and oriented x3. He is very anxious. Requesting Benadryl for sleep. Patient is also complaining of tenderness and burning sensation of the left lower back. Patient is being continued on Valtrex for shingles and Neurontin was added. Onexam antibiotics in the form of ceftriaxone abdominal wall wound infection. Wound VAC is in place. ID is on board. Patient has been afebrile. No nausea vomiting abdominal pain or diarrhea. No chest pain or shortness of breath. No cough or sputum production. Current medications reviewed. 08/04/22. Patient seen and examined. States she is having nasal congestion. Denies any fevers or chills. Tolerating diet. White count has increased to 1 4.2 k. REVIEW OF SYSTEMS: CONSTITUTIONAL: No fever, no malaise, no fatigue. HEENT: No recent visual problems or hearing problems. Denied any sore throat. CARDIOVASCULAR: No chest pain, orthopnea, PULMONARY: No shortness of breath, no cough, no hemoptysis. Complaining of con gestion GASTROINTESTINAL: No diarrhea, no nausea, no vomiting, no abdominal pain. PHYSICAL EXAMINATION: GENERAL: The patient is alert and oriented x3, not in any acute distress. Well developed, well nourished. HEENT: Pupils are round and equally reacting to light. EOMI. No scleral icterus. No conjunctival pallor. Normocephalic, atraumatic. No pharyngeal erythema. No thyromegaly. CARDIOVASCULAR: S1 and S2 present. No murmurs, rubs, or gallops. PULMONARY: Chest is clear to auscultation, no wheezing or crackles. ABDOMEN: Soft, nontender, nondistended, normoactive bowel sounds. Right ante rior abdominal wound seen with wound VAC MUSCULOSKELETAL: No joint swelling or deformity. EXTREMITIES: No cyanosis, clubbing, or pedal edema. NEUROLOGICAL: Gross neurological examination did not reveal any focal deficits. SKIN: Rash seen over the posterior part of the left side of the chest, improved according to the patient Assessment and plan Abdominal wound infection with surrounding cellulitis. History of abdominoplasty with revision complicated by seroma and nonhealing wound. Hypertension Hyperlipidemia GERD History Lap-Band surgery in 2006 Clear history of smoking GI and DVT prophylaxis Plan: Monitor vital signs Monitor CBC Monitor renal functions DC fluids Continue wound care. Continue IV Rocephin Continue Valcyclovir Follow-up on ID recommendations Objective - Vital Signs Vital signs: Vital Signs Temp 97.8 F 08/04/22 14:00 Pulse 61 08/04/22 14:00 Resp 17 08/04/22 14:00 BP 125/77 08/04/22 14:00 Pulse Ox 96 08/04/22 14:00 FiO2 Intake & Output 08/03/22 08/04/22 08/04/22 18:59 06:59 18:59 Intake Total 1080 Balance 1080 Intake: Oral 1080 Other: # Voids 3 2 - Labs CBC & Chem 7: 08/04/22 06:53 08/04/22 06:53 Labs: Abnormal Lab Results - Last 24 Hours (Table) 08/04/22 08/04/22 Range/Units 06:53 06:53 WBC 14.22 H (4.50-10.00) X 10*3/uL RBC 3.70 L (4.10-5.20) X 10*6/uL Hgb 10.3 L (12.0-15.0) g/dL Hct 31.8 L (37.2-46.3) % RDW 15.2 H (11.5-14.5) % Absolute Nucleated RBC 0.02 H (0.00-0.00) X 10*3/uL Immature Gran # 0.32 H (0.00-0.04) X 10*3/uL Neutrophils # 10.38 H (1.80-7.70) X 10*3/uL Eosinophils # 0.02 L (0.04-0.35) X 10*3/uL NRBC/100 WBC Diff 0.1 H (0.0-0.0) /100 WBCS Anion Gap 9.40 L (10.00-18.00) mmol/L BUN/Creatinine Ratio 25.17 H (12.00-20.00) Ratio Calcium 8.6 L (8.7-10.3) mg/dL Microbiology - Last 24 Hours (Table) 08/01/22 16:55 Blood Culture - Preliminary Blood No Growth after 48 hours 08/01/22 16:59 Blood Culture - Preliminary Blood No Growth after 48 hours
[2022-08-04] MEDS: ATORVASTATIN 20 MG TAB PO SCH (19:56)
[2022-08-04] MEDS: EZETIMIBE 10 MG TAB PO SCH (19:56)
[2022-08-04] MEDS: HYDROcodone/APAP 5-325MG 1 EACH TAB PO PRN (23:36)
[2022-08-05] MEDS: HYDROcodone/APAP 5-325MG 1 EACH TAB PO PRN ×4 (03:59→20:11)
[2022-08-05] MEDS: METOPROLOL TARTRATE 12.5 MG TAB PO SCH ×2 (08:07→20:11)
[2022-08-05] MEDS: GABAPENTIN 100 MG CAP PO SCH ×3 (08:09→20:12)
[2022-08-05] MEDS: HEPARIN SODIUM,PORCINE/PF 5,000 UNIT/0.5 ML SYRINGE SQ SCH ×3 (08:10→22:53)
[2022-08-05] MEDS: FLUoxetine HCL 20 MG CAP PO SCH ×2 (08:10→20:12)
[2022-08-05] MEDS: FAMOTIDINE 20 MG TAB PO SCH ×2 (08:10→20:12)
[2022-08-05] MEDS: valACYclovir HCL 1,000 MG TABLET PO SCH ×3 (08:10→22:53)
[2022-08-05] MEDS: guaiFENesin 600 MG TABLET.ER PO SCH ×2 (08:10→20:11)
[2022-08-05] MEDS: MORPHINE SULFATE 4 MG/ML SYRINGE IV PRN ×3 (09:50→23:54)
[2022-08-05 10:41] LABS: Basophils % (A) 0.9 %; Eosinophils # (A) 0.26 X 10*3/uL (0.04-0.35); Eosinophils % (A) 2.3 %; HCT 31.8 % (37.2-46.3); HGB 9.8 g/dL (12.0-15.0); Immature Grans, Automated 4.6 %; Lymphocytes # (A) 3.12 X 10*3/uL (0.90-5.00); Lymphocytes % (A) 27.7 %; MCHC 30.8 g/dL (32.0-37.0); MCV 87.6 fL (80.0-97.0); Mean Platelet Volume 10.9 fL (9.5-12.2); Monocytes % (A) 4.4 %; NRBC Per 100 WBC 0.2 /100 WBCS (0.0-0.0); Neutrophils # (A) 6.77 X 10*3/uL (1.80-7.70); Neutrophils % (A) 60.1 %; Platelet Count 297 X 10*3/uL (140-440); RBC 3.63 X 10*6/uL (4.10-5.20); WBC 11.27 X 10*3/uL (4.50-10.00)
[2022-08-05 11:31] LABS: African American GFR (CKD) 108.6 (60.0-200.0); BUN/Creat Ratio 28.33 Ratio (12.00-20.00); Blood Urea Nitrogen 18.5 mg/dL (9.0-27.0); Calcium 8.3 mg/dL (8.7-10.3); Carbon Dioxide 24.1 mmol/L (20.0-27.5); Non-African American GFR(CKD) 93.7 (60.0-200.0); Potassium 3.5 mmol/L (3.5-5.5)
--- NOTE | 2022-08-05 12:10 | P.PN ---
Subjective Progress Note Date: 08/03/22 Principal diagnosis: UTI and left trunk shingles Patient is a 62 -year-old female with a past medical he significant for abdominal abdomen infection status post removal currently being treated with a wound VAC presented to the hospital with generalized body aches fever she did have a positive UA concerning for UTI and rash to the left side of the chest concerning for zoster. On today's evaluation that is 08/03/2022 the patient fever has resolved still complaining of not feeling that good no chest pain shortness of breath or cough complaining of burning pain to the rash area, no nausea no vomiting no abdominal pain or diarrhea Objective - Vital Signs Vital signs: Vital Signs Temp 97.9 F 08/03/22 08:00 Pulse 61 08/03/22 08:00 Resp 16 08/03/22 08:00 BP 128/80 08/03/22 08:00 Pulse Ox 91 L 08/03/22 08:00 FiO2 Intake & Output 08/02/22 08/03/22 08/03/22 18:59 06:59 18:59 Intake Total 280 Balance 280 Intake: Intake, IV Titration 280 Amount Sodium Chloride 0.9% 1, 230 000 ml @ 130 mls/hr IV . Q7H42M ST[facility] Rx#:[id number] cefTRIAXone 2 gm In 50 Sodium Chloride 0.9% 50 ml @ 100 mls/hr IVPB Q24HR [facility] Rx#:[id number] Other: # Voids 1 2 - Exam GENERAL DESCRIPTION: Middle-aged female lying in bed, no distress. No tachypnea or accessory muscle of respiration use. LUNGS: Unlabored breathing. Clear to auscultation anteriorly. No wheeze or c rackle. HEART: S1, S2, regular rate and rhythm. No loud murmur ABDOMEN: Soft, no tenderness , guarding or rigidity, no organomegaly , left mid trunk zoster rash with no worsening EXTREMITIES: No edema of feet. - Labs CBC & Chem 7: 08/05/22 07:37 08/05/22 07:37 Labs: Abnormal Lab Results - Last 24 Hours (Table) 08/03/22 08/03/22 Range/Units 03:39 03:39 RBC 3.51 L (4.10-5.20) X 10*6/uL Hgb 9.7 L (12.0-15.0) g/dL Hct 30.3 L (37.2-46.3) % RDW 14.8 H (11.5-14.5) % Immature Gran # 0.07 H (0.00-0.04) X 10*3/uL Lymphocytes # 0.81 L (0.90-5.00) X 10*3/uL Eosinophils # 0 L (0.04-0.35) X 10*3/uL Anion Gap 8.60 L (10.00-18.00) mmol/L Glucose 214 H (70-110) mg/dL Calcium 8.2 L (8.7-10.3) mg/dL Microbiology - Last 24 Hours (Table) 08/01/22 Unknown Urine Culture - Final Urine,Clean Catch 08/01/22 16:55 Blood Culture - Preliminary Blood No Growth after 24 hours 08/01/22 16:59 Blood Culture - Preliminary Blood No Growth after 24 hours Assessment and Plan (1) UTI (urinary tract infection) Current Visit: Yes Status: Acute Code(s): N39.0 - URINARY TRACT INFECTION, SITE NOT SPECIFIED SNOMED Code(s): 56545842 (2) Shingles rash Current Visit: Yes Status: Acute Code(s): B02.9 - ZOSTER WITHOUT COMPLICATIONS SNOMED Code(s): 6492761 Plan: 1patient presented to hospital with a fever weakness lethargy which is likely multifactorial in this patient with a positive UA likely Concerning for a symptomatic urinary tract infection, likely from enteric gram-negative pathogen. 2patient with development of rash to the left lower chest wall likely shingles. 3penicillin allergy is related to the number of antibiotics safe to use. 4Patient to continue with Rocephin 2 g daily and Valtrex 1 g every 8 hours Time with Patient: Less than 30
--- NOTE | 2022-08-05 12:12 | P.PN ---
Subjective Progress Note Date: 08/04/22 Principal diagnosis: UTI and left trunk shingles Patient is a 62 -year-old female with a past medical he significant for abdominal abdomen infection status post removal currently being treated with a wound VAC presented to the hospital with generalized body aches fever she did have a positive UA concerning for UTI and rash to the left side of the chest concerning for zoster. On today's evaluation that is 08/04/2022 the patient remains to be afebrile, the patient denies having any chest pain or shortness of breath or cough complaining of pain to the left lower chest/upper abdominal rash area patient did have some nausea but no vomiting and no diarrhea Objective - Vital Signs Vital signs: Vital Signs Temp 97.8 F 08/04/22 08:00 Pulse 53 L 08/04/22 08:00 Resp 18 08/04/22 08:00 BP 144/85 08/04/22 08:00 Pulse Ox 96 08/04/22 08:00 FiO2 Intake & Output 08/03/22 08/04/22 08/04/22 18:59 06:59 18:59 Intake Total 1080 Balance 1080 Intake: Oral 1080 Other: # Voids 3 2 - Exam GENERAL DESCRIPTION: Middle-aged female lying in bed, no distress. No tachypnea or accessory muscle of respiration use. LUNGS: Unlabored breathing. Clear to auscultation anteriorly. No wheeze or crackle. HEART: S1, S2, regular rate and rhythm. No loud murmur ABDOMEN: Soft, no tenderness , guarding or rigidity, no organomegaly , left mid trunk zoster rash with no worsening EXTREMITIES: No edema of feet. - Labs CBC & Chem 7: 08/05/22 07:37 08/05/22 07:37 Labs: Abnormal Lab Results - Last 24 Hours (Table) 08/04/22 08/04/22 Range/Units 06:53 06:53 WBC 14.22 H (4.50-10.00) X 10*3/uL RBC 3.70 L (4.10-5.20) X 10*6/uL Hgb 10.3 L (12.0-15.0) g/dL Hct 31.8 L (37.2-46.3) % RDW 15.2 H (11.5-14.5) % Absolute Nucleated RBC 0.02 H (0.00-0.00) X 10*3/uL Immature Gran # 0.32 H (0.00-0.04) X 10*3/uL Neutrophils # 10.38 H (1.80-7.70) X 10*3/uL Eosinophils # 0.02 L (0.04-0.35) X 10*3/uL NRBC/100 WBC Diff 0.1 H (0.0-0.0) /100 WBCS Anion Gap 9.40 L (10.00-18.00) mmol/L BUN/Creatinine Ratio 25.17 H (12.00-20.00) Ratio Calcium 8.6 L (8.7-10.3) mg/dL Microbiology - Last 24 Hours (Table) 08/01/22 16:55 Blood Culture - Preliminary Blood No Growth after 48 hours 08/01/22 16:59 Blood Culture - Preliminary Blood No Growth after 48 hours 08/01/22 Unknown Urine Culture - Final Urine,Clean Catch Assessment and Plan (1) Shingles rash Current Visit: Yes Status: Acute Code(s): B02.9 - ZOSTER WITHOUT COMPLICATIONS SNOMED Code(s): 5169374 (2) UTI (urinary tract infection) Current Visit: Yes Status: Acute Code(s): N39.0 - URINARY TRACT INFECTION, SITE NOT SPECIFIED SNOMED Code(s): 49579878 Plan: 1patient presented to hospital with a fever weakness lethargy which is likely multifactorial in this patient with a positive UA likely Concerning for a symptomatic urinary tract infection, likely from enteric gram-negative pathogen, The patient blood and urine cultures coming back negative fever has responded to Rocephin which will be continued 2patient with development of rash to the left lower chest wall likely shingles, Patient to continue with the Valtrex 1 g every 8 hours Time with Patient: Less than 30
--- NOTE | 2022-08-05 14:02 | P.PN ---
Subjective Progress Note Date: 08/05/22 Patient is a 62-year-old female with a known history of recent abdominal wall abscess and infected Lap-Band port while in the hospital from 06/02/2022 to 06/09/2022. Patient presents to ER with complaints of generalized weakness generalized weakness and body aches and loss of appetite since Wednesday. Patient does have right sided anterior abdominal wound and wound care nurse been asked 3 times per week and also has been on wound VAC due to nonhealing wound. Home care nurse expresses concern for possible infection and sepsis due to new onset fever. Patient did take COVID test at home which is negative. Patient is on follow-up with wound care clinic. Currently not on antibiotics. Patient states that she also developed a rash currently wound site on . Patient is also having decreased appetite and nausea and vomiting and decreased oral intake. Denies any chest pain or shortness of. No abdominal pain. No constipation. No leg swelling. CT of the abdomen pelvis showed previous surgery. No evidence of renal obstruction. Multiple nonobstructing renal calculi left side. Mild pleural thickening and atelectasis of the lung bases. Chest x-ray showed no acute cardiopulmonary disease. Normal heart. EKG showed sinus rhythm Laboratory data showed WBC 6.3 hemoglobin 10.4 and platelets 188 Sodium 137 potassium 3.4 chloride 106 bicarb is 22 BUN 13 and creatinine 0.69 and blood sugar is 114 calcium 7.7 Urinalysis showed large leukocyte esterase and elevated WBC count. Patient denied any dysuria or hematuria. Coronavirus PCR not detected. 08/03/2022 Patient is ambulating the bed. Awake alert and oriented x3. He is very anxious. Requesting Benadryl for sleep. Patient is also complaining of tenderness and burning sensation of the left lower back. Patient is being continued on Valtrex for shingles and Neurontin was added. Onexam antibiotics in the form of ceftriaxone abdominal wall wound infection. Wound VAC is in place. ID is on board. Patient has been afebrile. No nausea vomiting abdominal pain or diarrhea. No chest pain or shortness of breath. No cough or sputum production. Current medications reviewed. 08/04/22. Patient seen and examined. States she is having nasal congestion. Denies any fevers or chills. Tolerating diet. White count has increased to 1 4.2 k. 08/05/22. Patient seen and examined. Patient states that today she does not feel well, patient states she is very tired. Patient was concerned about not being hooked to wound VAC, will discuss with ID regarding it. Vital signs stable. Case discussed with nursing staff REVIEW OF SYSTEMS: CONSTITUTIONAL: No fever, no malaise, no fatigue. HEENT: No recent visual problems or hearing problems. Denied any sore throat. CARDIOVASCULAR: No chest pain, orthopnea, PULMONARY: No shortness of breath, no cough, no hemoptysis. Complaining of congestion GASTROINTESTINAL: No diarrhea, no nausea, no vomiting, no abdominal pain. PHYSICAL EXAMINATION: GENERAL: The patient is alert and oriented x3, not in any acute distress. Well developed, well nourished. HEENT: Pupils are round and equally reacting to light. EOMI. No scleral icterus. No conjunctival pallor. Normocephalic, atraumatic. No pharyngeal erythema. No thyromegaly. CARDIOVASCULAR: S1 and S2 present. No murmurs, rubs, or gallops. PULMONARY: Chest is clear to auscultation, no wheezing or crackles. ABDOMEN: Soft, nontender, nondistended, normoactive bowel sounds. Right anterior abdominal wound seen . MUSCULOSKELETAL: No joint swelling or deformity. EXTREMITIES: No cyanosis, clubbing, or pedal edema. NEUROLOGICAL: Gross neurological examination did not reveal any focal deficits. SKIN: Rash seen over the posterior part of the left side of the chest, improved according to the patient Assessment and plan Abdominal wound infection with surrounding cellulitis. History of abdominoplasty with revision complicated by seroma and nonhealing wound. Hypertension Hyperlipidemia GERD History Lap-Band surgery in 2006 Clear history of smoking GI and DVT prophylaxis Plan: Monitor vital signs Monitor CBC Monitor renal functions Continue wound care. Continue IV Rocephin Continue Valcyclovir Follow-up on ID recommendations Objective - Vital Signs Vital signs: Vital Signs Temp 97.8 F 08/05/22 07:33 Pulse 87 08/05/22 07:33 Resp 17 08/05/22 07:33 BP 160/64 08/05/22 07:33 Pulse Ox 97 08/05/22 07:33 FiO2 Intake & Output 08/04/22 08/05/22 08/05/22 18:59 06:59 18:59 Other: # Voids 3 3 - Labs CBC & Chem 7: 10/05/22 07:37 08/05/22 07:37 Labs: Abnormal Lab Results - Last 24 Hours (Table) 08/05/22 08/05/22 Range/Units 07:37 07:37 WBC 11.27 H (4.50-10.00) X 10*3/uL RBC 3.63 L (4.10-5.20) X 10*6/uL Hgb 9.8 L (12.0-15.0) g/dL Hct 31.8 L (37.2-46.3) % MCHC 30.8 L (32.0-37.0) g/dL RDW 15.0 H (11.5-14.5) % Absolute Nucleated RBC 0.02 H (0.00-0.00) X 10*3/uL Immature Gran # 0.52 H (0.00-0.04) X 10*3/uL NRBC/100 WBC Diff 0.2 H (0.0-0.0) /100 WBCS BUN/Creatinine Ratio 28.33 H (12.00-20.00) Ratio Glucose 148 H (70-110) mg/dL Calcium 8.3 L (8.7-10.3) mg/dL Microbiology - Last 24 Hours (Table) 08/01/22 16:55 Blood Culture - Preliminary Blood No Growth after 72 hours 08/01/22 16:59 Blood Culture - Preliminary Blood No Growth after 72 hours
[2022-08-05] MEDS: ALPRAZolam 0.25 MG TAB PO PRN ×2 (14:11→20:11)
[2022-08-05] MEDS: EZETIMIBE 10 MG TAB PO SCH (20:11)
[2022-08-05] MEDS: ATORVASTATIN 20 MG TAB PO SCH (20:12)
--- NOTE | 2022-08-05 22:45 | P.PN ---
Subjective Progress Note Date: 08/05/22 Principal diagnosis: UTI and left trunk shingles Patient is a 62 -year-old female with a past medical he significant for abdominal abdomen infection status post removal currently being treated with a wound VAC presented to the hospital with generalized body aches fever she did have a positive UA concerning for UTI and rash to the left side of the chest concerning for zoster. On today's evaluation that is 08/05/2022 the patient continues to be afebrile, the patient denies chest pain or shortness of breath or cough complaining of pain to the left lower chest/upper abdominal rash area patient did have some nausea but no vomiting and no diarrhea Objective - Vital Signs Vital signs: Vital Signs Temp 97.8 F 08/05/22 07:33 Pulse 87 08/05/22 07:33 Resp 17 08/05/22 07:33 BP 160/64 08/05/22 07:33 Pulse Ox 97 08/05/22 07:33 FiO2 Intake & Output 08/04/22 08/05/22 08/05/22 18:59 06:59 18:59 Other: # Voids 3 3 - Exam GENERAL DESCRIPTION: Middle-aged female lying in bed, no distress. No tachypnea or accessory muscle of respiration use. LUNGS: Unlabored breathing. Clear to auscultation anteriorly. No wheeze or crackle. HEART: S1, S2, regular rate and rhythm. No loud murmur ABDOMEN: Soft, no tenderness , guarding or rigidity, no organomegaly , left mid trunk zoster rash with no worsening EXTREMITIES: No edema of feet. - Labs CBC & Chem 7: 08/05/22 07:37 08/05/22 07:37 Labs: Abnormal Lab Results - Last 24 Hours (Table) 08/05/22 08/05/22 Range/Units 07:37 07:37 WBC 11.27 H (4.50-10.00) X 10*3/uL RBC 3.63 L (4.10-5.20) X 10*6/uL Hgb 9.8 L (12.0-15.0) g/dL Hct 31.8 L (37.2-46.3) % MCHC 30.8 L (32.0-37.0) g/dL RDW 15.0 H (11.5-14.5) % Absolute Nucleated RBC 0.02 H (0.00-0.00) X 10*3/uL Immature Gran # 0.52 H (0.00-0.04) X 10*3/uL NRBC/100 WBC Diff 0.2 H (0.0-0.0) /100 WBCS BUN/Creatinine Ratio 28.33 H (12.00-20.00) Ratio Glucose 148 H (70-110) mg/dL Calcium 8.3 L (8.7-10.3) mg/dL Microbiology - Last 24 Hours (Table) 08/01/22 16:55 Blood Culture - Preliminary Blood No Growth after 72 hours 08/01/22 16:59 Blood Culture - Preliminary Blood No Growth after 72 hours Assessment and Plan (1) Shingles rash Current Visit: Yes Status: Acute Code(s): B02.9 - ZOSTER WITHOUT COMPLICATIONS SNOMED Code(s): 4471897 (2) UTI (urinary tract infection) Current Visit: Yes Status: Acute Code(s): N39.0 - URINARY TRACT INFECTION, SITE NOT SPECIFIED SNOMED Code(s): 54550076 Plan: 1patient presented to hospital with a fever weakness lethargy which is likely multifactorial in this patient with a positive UA likely Concerning for a s ymptomatic urinary tract infection, likely from enteric gram-negative pathogen, The patient blood and urine cultures coming back negative, however the patient fever has responded to Rocephin which will be continued and the patient to finish therapy with oral Ceftin 2patient with T1 dermatome shingles on the left side, Patient to continue with the Valtrex 1 g every 8 hours to finish a 7 day course of therapy Time with Patient: Less than 30
[2022-08-06] MEDS: HYDROcodone/APAP 5-325MG 1 EACH TAB PO PRN ×4 (04:32→23:49)
[2022-08-06] MEDS: HEPARIN SODIUM,PORCINE/PF 5,000 UNIT/0.5 ML SYRINGE SQ SCH ×3 (08:27→23:49)
[2022-08-06] MEDS: FAMOTIDINE 20 MG TAB PO SCH ×2 (08:27→21:10)
[2022-08-06] MEDS: FLUoxetine HCL 20 MG CAP PO SCH ×2 (08:27→21:10)
[2022-08-06] MEDS: GABAPENTIN 100 MG CAP PO SCH ×3 (08:27→21:10)
[2022-08-06] MEDS: guaiFENesin 600 MG TABLET.ER PO SCH ×2 (08:27→21:10)
[2022-08-06] MEDS: valACYclovir HCL 1,000 MG TABLET PO SCH ×3 (08:27→23:49)
[2022-08-06] MEDS: MORPHINE SULFATE 4 MG/ML SYRINGE IV PRN ×3 (08:28→21:10)
[2022-08-06 08:57] LABS: HCT 33.5 % (37.2-46.3); HGB 10.7 g/dL (12.0-15.0); MCH 27.8 pg (27.0-32.0); MCHC 31.9 g/dL (32.0-37.0); Mean Platelet Volume 10.9 fL (9.5-12.2); NRBC Per 100 WBC 0.3 /100 WBCS (0.0-0.0); Platelet Count 343 X 10*3/uL (140-440); RBC 3.85 X 10*6/uL (4.10-5.20); RDW 14.7 % (11.5-14.5); WBC 10.32 X 10*3/uL (4.50-10.00)
[2022-08-06 09:05] LABS: ALT 31 U/L (8-44); AST 18 U/L (13-35); African American GFR (CKD) 106.1 (60.0-200.0); Albumin 3.2 g/dL (3.8-4.9); Albumin/Globulin Ratio 1.45 (1.60-3.17); Alkaline Phosphatase 60 U/L (41-126); BUN/Creat Ratio 20.57 Ratio (12.00-20.00); Blood Urea Nitrogen 14.4 mg/dL (9.0-27.0); Calcium 8.9 mg/dL (8.7-10.3); Carbon Dioxide 28.5 mmol/L (20.0-27.5); Chloride 103 mmol/L (96-109); Globulin 2.2 g/dL (1.6-3.3); Glucose 92 mg/dL (70-110); Non-African American GFR(CKD) 91.6 (60.0-200.0); Potassium 4.3 mmol/L (3.5-5.5); Sodium 142 mmol/L (135-145); Total Bilirubin <0.15 mg/dL (0.30-1.20); Total Protein 5.4 g/dL (6.2-8.2)
[2022-08-06 09:30] LABS: Basophils # (M) 0.21 X 10*3/uL (0.00-0.10); Eosinophils # (M) 0.52 X 10*3/uL (0.04-0.35); Lymphocytes # (M) 2.06 X 10*3/uL (0.90-5.00); Monocytes # (M) 0.52 X 10*3/uL (0.20-1.00); Myelocytes % 2 % (0-0); Neutrophils # (M) 6.81 X 10*3/uL (2.00-8.90); Neutrophils % (M) 66 %; RBC Morphology NORMAL
[2022-08-06 13:06] VITALS: BMI 30.3
--- NOTE | 2022-08-06 13:19 | P.PN ---
Subjective Progress Note Date: 08/06/22 Patient is a 62-year-old female with a known history of recent abdominal wall abscess and infected Lap-Band port while in the hospital from 06/02/2022 to 06/09/2022. Patient presents to ER with complaints of generalized weakness generalized weakness and body aches and loss of appetite since Wednesday. Patient does have right sided anterior abdominal wound and wound care nurse been asked 3 times per week and also has been on wound VAC due to nonhealing wound. Home care nurse expresses concern for possible infection and sepsis due to new onset fever. Patient did take COVID test at home which is negative. Patient is on follow-up with wound care clinic. Currently not on antibiotics. Patient states that she also developed a rash currently wound site on . Patient is also having decreased appetite and nausea and vomiting and decreased oral intake. Denies any chest pain or shortness of. No abdominal pain. No constipation. No leg swelling. CT of the abdomen pelvis showed previous surgery. No evidence of renal obstruction. Multiple nonobstructing renal calculi left side. Mild pleural thickening and atelectasis of the lung bases. Chest x-ray showed no acute cardiopulmonary disease. Normal heart. EKG showed sinus rhythm Laboratory data showed WBC 6.3 hemoglobin 10.4 and platelets 188 Sodium 137 potassium 3.4 chloride 106 bicarb is 22 BUN 13 and creatinine 0.69 and blood sugar is 114 calcium 7.7 Urinalysis showed large leukocyte esterase and elevated WBC count. Patient denied any dysuria or hematuria. Coronavirus PCR not detected. 08/03/2022 Patient is ambulating the bed. Awake alert and oriented x3. He is very anxious. Requesting Benadryl for sleep. Patient is also complaining of tenderness and burning sensation of the left lower back. Patient is being continued on Valtrex for shingles and Neurontin was added. Onexam antibiotics in the form of ceftriaxone abdominal wall wound infection. Wound VAC is in place. ID is on board. Patient has been afebrile. No nausea vomiting abdominal pain or diarrhea. No chest pain or shortness of breath. No cough or sputum production. Current medications reviewed. 08/04/22. Patient seen and examined. States she is having nasal congestion. Denies any fevers or chills. Tolerating diet. White count has increased to 1 4.2 k. 08/05/22. Patient seen and examined. Patient states that today she does not feel well, patient states she is very tired. Patient was concerned about not being hooked to wound VAC, will discuss with ID regarding it. Vital signs stable. Case discussed with nursing staff 08/06. Patient seen and examined. States back pain is improving. Still complaining of lethargy and weakness. Discussed with patient regarding discharge plan, she is to be discharged on oral antibiotics and valacyclovir. Possible discharge in the morning REVIEW OF SYSTEMS: CONSTITUTIONAL: No fever, no malaise, no fatigue. HEENT: No recent visual problems or hearing problems. Denied any sore throat. CARDIOVASCULAR: No chest pain, orthopnea, PULMONARY: No shortness of breath, no cough, no hemoptysis. Complaining of congestion GASTROINTESTINAL: No diarrhea, no nausea, no vomiting, no abdominal pain. PHYSICAL EXAMINATION: GENERAL: The patient is alert and oriented x3, not in any acute distress. Well developed, well nourished. HEENT: Pupils are round and equally reacting to light. EOMI. No scleral icterus. No conjunctival pallor. Normocephalic, atraumatic. No pharyngeal erythema. No thyromegaly. CARDIOVASCULAR: S1 and S2 present. No murmurs, rubs, or gallops. PULMONARY: Chest is clear to auscultation, no wheezing or crackles. ABDOMEN: Soft, nontender, nondistended, normoactive bowel sounds. Right anterior abdominal wound seen . Full vaccine MUSCULOSKELETAL: No joint swelling or deformity. EXTREMITIES: No cyanosis, clubbing, or pedal edema. NEUROLOGICAL: Gross neurological examination did not reveal any focal deficits. SKIN: Rash seen over the posterior part of the left side of the chest, improved according to the patient Assessment and plan Abdominal wound infection with surrounding cellulitis. History of abdominoplasty with revision complicated by seroma and nonhealing wound. Hypertension Hyperlipidemia GERD History Lap-Band surgery in 2006 Clear history of smoking GI and DVT prophylaxis Plan: Monitor vital signs Monitor CBC Monitor renal functions Continue wound care. Continue wound VAC per ID Continue IV Rocephin. Will need 7 days of antibiotics Continue Valcyclovir will need total 7 days Follow-up on ID recommendations Objective - Vital Signs Vital signs: Vital Signs Temp 98.2 F 08/06/22 07:29 Pulse 99 08/06/22 08:28 Resp 16 08/06/22 08:28 BP 118/68 08/06/22 07:29 Pulse Ox 97 08/06/22 07:29 FiO2 Intake & Output 08/05/22 08/06/22 08/06/22 18:59 06:59 18:59 Intake Total 500 Balance 500 Weight 85.275 kg Intake: Oral 500 Other: # Voids 8 # Bowel Movements 2 - Labs CBC & Chem 7: 08/06/22 06:30 08/06/22 06:30 Labs: Abnormal Lab Results - Last 24 Hours (Table) 08/06/22 08/06/22 Range/Units 06:30 06:30 WBC 10.32 H (4.50-10.00) X 10*3/uL RBC 3.85 L (4.10-5.20) X 10*6/uL Hgb 10.7 L (12.0-15.0) g/dL Hct 33.5 L (37.2-46.3) % MCHC 31.9 L (32.0-37.0) g/dL RDW 14.7 H (11.5-14.5) % Plt Count Comment DECREASED A Absolute Nucleated RBC 0.03 H (0.00-0.00) X 10*3/uL Myelocytes % 2 H (0-0) % Eosinophils # (Manual) 0.52 H (0.04-0.35) X 10*3/uL Basophils # (Manual) 0.21 H (0.00-0.10) X 10*3/uL NRBC/100 WBC Diff 0.3 H (0.0-0.0) /100 WBCS Carbon Dioxide 28.5 H (20.0-27.5) mmol/L BUN/Creatinine Ratio 20.57 H (12.00-20.00) Ratio Total Bilirubin <0.15 L (0.30-1.20) mg/dL Total Protein 5.4 L (6.2-8.2) g/dL Albumin 3.2 L (3.8-4.9) g/dL Albumin/Globulin Ratio 1.45 L (1.60-3.17) g/dL Microbiology - Last 24 Hours (Table) 08/01/22 16:59 Blood Culture - Preliminary Blood No Growth after 96 hours 08/01/22 16:55 Blood Culture - Preliminary Blood No Growth after 96 hours
--- NOTE | 2022-08-06 15:07 | CDI ---
Documentation Clarification Form Date: 08/07/2022 02:58:48 PM From: Giovana Hines RN, CCDS Admit Date: 08/01/2022 08:39:00 PM Patient Name: Keisha Brantley Visit Number: [id number] Discharge Date: ATTENTION: The Clinical Documentation Specialists (CDI) and [facility] Coding Staff appreciate your assistance in clarifying documentation. Please respond to the clarification below the line at the bottom and electronically sign. The CDI & [facility] Coding staff will review the response and follow-up if needed. Please note: Queries are made part of the Legal Health Record. If you have any questions, please contact the author of this message via ITS. Dr. Colby Nguyen The patient presented with the following clinical indicators. Additional clarification regarding the etiology/cause of the clinical indicators is requested. 08/02 ID: Patient presented to hospital with fever weakness lethargy which is likely multifactorial in the patient concerning for a symptomatic urinary tract infection, likely from enteric gram-negative pathogen. Rash suspicious for shingles History/Risk Factors: Hypertension, Bariatric Surgery, Former smoker Clinical Indicators: 62-year-old female present with weakness, body aches, and loss of appetite. New onset fever, rash. She has and abdominal wound with moderate amount of thick brownish drainage, erythematous. 10 Vital signs: 122/65 104 22 99.2, 135/80 89 16 102.2 94 % 08/01 WBC: 8.3 08/01 Lactic acid: 0.8 08/01 UA: Large Leukocyte Esterase 08/01 Urine Culture: apparent skin and/or genital kal 08/01 Blood cultures: Preliminary-No growth after 96 hours Treatment: Rocephin 2 GM IVPB Q 24 HRS, Valtrex 1,000 MG PO Q8 HRS .9 NS1,000 IV Bolus x2, 500 ML IV Bolus x1 Vancomycin 1,500 MG IVPB ONCE THEN Q 12 HRS 08/01-08/02 IV Bolus: In your professional opinion, please clarify if these findings signify one of the following conditions: [ X ] Sepsis POA [ ] Sepsis ruled out [ ] Other, please specify [ ] Unable to determine SIRS Criteria: 2 or more of the following may indicate SIRS -Temperature < 96.8F (36C) or > 101.0F (38.3C) -Heart Rate > 90 bpm -Respiratory Rate > 20 breaths/min or PaCO2 < 32 mmHg -White Blood Cell Count > 12,000 or < 4,000 cells/mm3 or > 10% bands (Template Last Reviewed: December 2020) MTDD
--- NOTE | 2022-08-06 15:27 | CDI ---
Documentation Clarification Form Date: 08/06/2022 03:08:06 PM From: Giovana Hines RN, CCDS Admit Date: 08/01/2022 08:39:00 PM Patient Name: Keisha Brantley Visit Number: [id number] Discharge Date: ATTENTION: The Clinical Documentation Specialists (CDI) and [facility] Coding Staff appreciate your assistance in clarifying documentation. Please respond to the clarification below the line at the bottom and electronically sign. The CDI & [facility] Coding staff will review the response and follow-up if needed. Please note: Queries are made part of the Legal Health Record. If you have any questions, please contact the author of this message via ITS. Dr. Colby Nguyen The patients principal diagnosis the diagnosis that was chiefly responsible for the admission - has not been clearly identified and clarification is requested. 08/02 ID: Patient presented to hospital with fever weakness lethargy which is likely multifactorial in the patient concerning for a symptomatic urinary tract infection, likely from enteric gram-negative pathogen. Rash suspicious for shingles The patient presented with the following: History of abdominal wall abscess and infected Lap-Band port. History/Risk factors: History/Risk Factors: Hypertension, Bariatric Surgery, Former smoker Clinical Indicators: 62-year-old female present with weakness, body aches, and loss of appetite. New onset fever, rash. She has and abdominal wound with moderate amount of thick brownish drainage, erythematous. She has right sided anterior abdominal wound and cellulitis per H/P. 08/01 Vital signs: 122/65 104 22 99.2, 135/80 89 16 102.2 94 % 08/01 WBC: 8.3 08/01 Lactic acid: 0.8 08/01 UA: Large Leukocyte Esterase 08/01 Urine Culture: apparent skin and/or genital kal 08/01 Blood cultures: Preliminary-No growth after 96 hours Treatment: Rocephin 2 GM IVPB Q 24 HRS, Valtrex 1,000 MG PO Q8 HRS x 7 days course .9 NS1, 000 IV Bolus x2, 500 ML IV Bolus x1 Vancomycin 1,500 MG IVPB ONCE THEN Q 12 HRS 08/01-08/02 IV Bolus: Wound vac per orders In your professional opinion, can you please clarify which diagnosis, after study, was the reason chiefly responsible for the admission? [ ] Non healing abdominal surgical wound from prior abdominoplasty, with cellulitis [ ] Urinary tract infection [ ] T1 dermatome shingles on the left side [ ] Other, please specify [ X] Unable to determine (Template Last Revised: December 2020) MTDD
[2022-08-06] MEDS: ATORVASTATIN 20 MG TAB PO SCH (21:10)
[2022-08-06] MEDS: METOPROLOL TARTRATE 12.5 MG TAB PO SCH (21:10)
[2022-08-06] MEDS: EZETIMIBE 10 MG TAB PO SCH (21:10)
[2022-08-07] MEDS: MORPHINE SULFATE 4 MG/ML SYRINGE IV PRN ×2 (05:18→10:05)
[2022-08-07] MEDS: ONDANSETRON 4 MG/2 ML VIAL IVP PRN (05:22)
[2022-08-07 08:19] VITALS: BP 126/78; PULSE 66; RESP 14; TEMP 98.1
[2022-08-07] MEDS: valACYclovir HCL 1,000 MG TABLET PO SCH (08:29)
[2022-08-07] MEDS: HEPARIN SODIUM,PORCINE/PF 5,000 UNIT/0.5 ML SYRINGE SQ SCH (08:29)
[2022-08-07] MEDS: guaiFENesin 600 MG TABLET.ER PO SCH (08:29)
[2022-08-07] MEDS: GABAPENTIN 100 MG CAP PO SCH (08:30)
[2022-08-07] MEDS: FLUoxetine HCL 20 MG CAP PO SCH (08:30)
[2022-08-07] MEDS: FAMOTIDINE 20 MG TAB PO SCH (08:30)
[2022-08-07] MEDS: METOPROLOL TARTRATE 12.5 MG TAB PO SCH (08:30)
[2022-08-07] MEDS: HYDROcodone/APAP 5-325MG 1 EACH TAB PO PRN ×2 (08:36→13:31)
--- NOTE | 2022-08-07 11:43 | P.DS ---
Providers Date of admission: 08/01/22 20:39 Expected date of discharge: 08/14/22 Attending physician: Rishi Rojas Consults: 08/01/22 21:21 Consult Physician Routine Consulting Provider: Cassie Herbert Consult Reason/Comments: Abdominal wall abscess, cellulitis Do you want consulting provider notified?: Yes, Notify in am Primary care physician: Stated None Hospital Course: Discharge diagnoses; Abdominal wound infection with surrounding cellulitis. Shingles rash UTI History of abdominoplasty with revision complicated by seroma and nonhealing wound. Hypertension Hyperlipidemia GERD History Lap-Band surgery in 2006 Hospital course; Patient is a 62-year-old female with a known history of recent abdominal wall abscess and infected Lap-Band port while in the hospital from 06/02/2022 to 06/09/2022. Patient presents to ER with complaints of generalized weakness generalized weakness and body aches and loss of appetite since Wednesday. Patient does have right sided anterior abdominal wound and wound care nurse been asked 3 times per week and also has been on wound VAC due to nonhealing wound. Home care nurse expresses concern for possible infection and sepsis due to new onset fever. Patient did take COVID test at home which is negative. Patient is on follow-up with wound care clinic. Currently not on antibiotics. Patient states that she also developed a rash currently wound site on . Patient is also having decreased appetite and nausea and vomiting and decreased oral intake. Denies any chest pain or shortness of. No abdominal pain. No constipation. No leg swelling. CT of the abdomen pelvis showed previous surgery. No evidence of renal obstruction. Multiple nonobstructing renal calculi left side. Mild pleural thickening and atelectasis of the lung bases. Chest x-ray showed no acute cardiopulmonary disease. Normal heart. EKG showed sinus rhythm Laboratory data showed WBC 6.3 hemoglobin 10.4 and platelets 188 Sodium 137 potassium 3.4 chloride 106 bicarb is 22 BUN 13 and creatinine 0.69 and blood sugar is 114 calcium 7.7 Urinalysis showed large leukocyte esterase and elevated WBC count. Patient denied any dysuria or hematuria. Coronavirus PCR not detected. 08/03/2022 Patient is ambulating the bed. Awake alert and oriented x3. He is very anxious. Requesting Benadryl for sleep. Patient is also complaining of tenderness and burning sensation of the left lower back. Patient is being continued on Valtrex for shingles and Neurontin was added. Onexam antibiotics in the form of ceftriaxone abdominal wall wound infection. Wound VAC is in place. ID is on board. Patient has been afebrile. No nausea vomiting abdominal pain or diarrhea. No chest pain or shortness of breath. No cough or sputum production. Current medications reviewed. 08/04/22. Patient seen and examined. States she is having nasal congestion. Denies any fevers or chills. Tolerating diet. White count has increased to 14.2 k. 08/05/22. Patient seen and examined. Patient states that today she does not feel well, patient states she is very tired. Patient was concerned about not being hooked to wound VAC, will discuss with ID regarding it. Vital signs stable. Case discussed with nursing staff 08/06. Patient seen and examined. States back pain is improving. Still complaining of lethargy and weakness. Discussed with patient regarding discharge plan, she is to be discharged on oral antibiotics and valacyclovir. Possible discharge in the morning 08/07/22. Patient seen and examined. Patient cleared for discharge by ID. Being discharged on oral Ceftin and valacyclovir for 2 more days PHYSICAL EXAMINATION: GENERAL: The patient is alert and oriented x3, not in any acute distress. Well developed, well nourished. HEENT: Pupils are round and equally reacting to light. EOMI. No scleral icterus. No conjunctival pallor. Normocephalic, atraumatic. No pharyngeal erythema. No thyromegaly. CARDIOVASCULAR: S1 and S2 present. No murmurs, rubs, or gallops. PULMONARY: Chest is clear to auscultation, no wheezing or crackles. ABDOMEN: Soft, nontender, nondistended, normoactive bowel sounds. Right anterior abdominal wound seen . Wound VAC SEEN MUSCULOSKELETAL: No joint swelling or deformity. EXTREMITIES: No cyanosis, clubbing, or pedal edema. NEUROLOGICAL: Gross neurological examination did not reveal any focal deficits. SKIN: Rash seen over the posterior part of the left side of the chest, improved according to the patient Patient Condition at Discharge: Good Plan - Discharge Summary Discharge Rx Participant: No New Discharge Prescriptions: New Gabapentin [Neurontin] 100 mg PO TID 7 Days #21 cap HYDROcodone/APAP 5-325MG [[place] 5-325] 1 each PO Q6HR PRN 3 Days #9 tab PRN Reason: Pain cefUROXime axetiL [Cefuroxime] 500 mg PO BID 2 Days #4 tab valACYclovir HCL [Valtrex] 1,000 mg PO Q8HR 2 Days #6 tab Continue Ezetimibe [Zetia] 10 mg PO HS Famotidine [Pepcid] 20 mg PO DAILY PRN PRN Reason: Gi Upset Metoprolol Tartrate [Lopressor] 12.5 mg PO BID Rosuvastatin [Crestor] 10 mg PO HS FLUoxetine HCL [PROzac] 20 mg PO BID Acetaminophen Tab [Tylenol] 650 mg PO Q6HR PRN tab PRN Reason: Mild Pain Or Fever >= 100.5 Discharge Medication List Ezetimibe [Zetia] 10 mg PO HS 01/16/22 [History] FLUoxetine HCL [PROzac] 20 mg PO BID 06/02/22 [History] Famotidine [Pepcid] 20 mg PO DAILY PRN 06/02/22 [History] Rosuvastatin [Crestor] 10 mg PO HS 06/02/22 [History] Acetaminophen Tab [Tylenol] 650 mg PO Q6HR PRN tab 06/08/22 [Rx] Metoprolol Tartrate [Lopressor] 12.5 mg PO BID 08/01/22 [History] Gabapentin [Neurontin] 100 mg PO TID 7 Days #21 cap 08/07/22 [Rx] HYDROcodone/APAP 5-325MG [[place] 5-325] 1 each PO Q6HR PRN 3 Days #9 tab 08/07/22 [Rx] cefUROXime axetiL [Cefuroxime] 500 mg PO BID 2 Days #4 tab 08/07/22 [Rx] valACYclovir HCL [Valtrex] 1,000 mg PO Q8HR 2 Days #6 tab 08/07/22 [Rx] Follow up Appointment(s)/Referral(s): None,Stated [Primary Care Provider] - 1-2 days [facility] [NON-STAFF] - 1-2 Days Cassie Herbert MD [STAFF PHYSICIAN] - 08/24/22 2:00 pm Discharge Disposition: HOME SELF-CARE
--- NOTE | 2022-08-07 15:22 | P.PN ---
Subjective Progress Note Date: 08/06/22 Principal diagnosis: UTI and left trunk shingles Patient is a 62 -year-old female with a past medical he significant for abdominal abdomen infection status post removal currently being treated with a wound VAC presented to the hospital with generalized body aches fever she did have a positive UA concerning for UTI and rash to the left side of the chest concerning for zoster. On today's evaluation that is 08/06/2022 the patient remains to be afebrile, the patient denies chest pain or shortness of breath or cough: The patient is still complaining of pain to the left lower chest/upper abdominal rash area some improvement with the pain medication patient did have some nausea but no vomiting and no diarrhea Objective - Vital Signs Vital signs: Vital Signs Temp 98.2 F 08/06/22 07:29 Pulse 99 08/06/22 08:28 Resp 16 08/06/22 08:28 BP 118/68 08/06/22 07:29 Pulse Ox 97 08/06/22 07:29 FiO2 Intake & Output 08/05/22 08/06/22 08/06/22 18:59 06:59 18:59 Intake Total 500 Balance 500 Intake: Oral 500 Other: # Voids 8 # Bowel Movements 2 - Exam GENERAL DESCRIPTION: Middle-aged female lying in bed, no distress. No tachypnea or accessory muscle of respiration use. LUNGS: Unlabored breathing. Clear to auscultation anteriorly. No wheeze or crackle. HEART: S1, S2, regular rate and rhythm. No loud murmur ABDOMEN: Soft, no tenderness , guarding or rigidity, no organomegaly , left mid trunk zoster rash with no worsening EXTREMITIES: No edema of feet. - Labs CBC & Chem 7: 08/06/22 06:30 08/06/22 06:30 Labs: Abnormal Lab Results - Last 24 Hours (Table) 08/05/22 08/05/22 08/06/22 Range/Units 07:37 07:37 06:30 WBC 11.27 H 10.32 H (4.50-10.00) X 10*3/uL RBC 3.63 L 3.85 L (4.10-5.20) X 10*6/uL Hgb 9.8 L 10.7 L (12.0-15.0) g/dL Hct 31.8 L 33.5 L (37.2-46.3) % MCHC 30.8 L 31.9 L (32.0-37.0) g/dL RDW 15.0 H 14.7 H (11.5-14.5) % Plt Count Comment DECREASED A Absolute Nucleated RBC 0.02 H 0.03 H (0.00-0.00) X 10*3/uL Myelocytes % 2 H (0-0) % Immature Gran # 0.52 H (0.00-0.04) X 10*3/uL Eosinophils # (Manual) 0.52 H (0.04-0.35) X 10*3/uL Basophils # (Manual) 0.21 H (0.00-0.10) X 10*3/uL NRBC/100 WBC Diff 0.2 H 0.3 H (0.0-0.0) /100 WBCS Carbon Dioxide (20.0-27.5) mmol/L BUN/Creatinine Ratio 28.33 H (12.00-20.00) Ratio Glucose 148 H (70-110) mg/dL Calcium 8.3 L (8.7-10.3) mg/dL Total Bilirubin (0.30-1.20) mg/dL Total Protein (6.2-8.2) g/dL Albumin (3.8-4.9) g/dL Albumin/Globulin Ratio (1.60-3.17) g/dL 08/06/22 Range/Units 06:30 WBC (4.50-10.00) X 10*3/uL RBC (4.10-5.20) X 10*6/uL Hgb (12.0-15.0) g/dL Hct (37.2-46.3) % MCHC (32.0-37.0) g/dL RDW (11.5-14.5) % Plt Count Comment Absolute Nucleated RBC (0.00-0.00) X 10*3/uL Myelocytes % (0-0) % Immature Gran # (0.00-0.04) X 10*3/uL Eosinophils # (Manual) (0.04-0.35) X 10*3/uL Basophils # (Manual) (0.00-0.10) X 10*3/uL NRBC/100 WBC Diff (0.0-0.0) /100 WBCS Carbon Dioxide 28.5 H (20.0-27.5) mmol/L BUN/Creatinine Ratio 20.57 H (12.00-20.00) Ratio Glucose (70-110) mg/dL Calcium (8.7-10.3) mg/dL Total Bilirubin <0.15 L (0.30-1.20) mg/dL Total Protein 5.4 L (6.2-8.2) g/dL Albumin 3.2 L (3.8-4.9) g/dL Albumin/Globulin Ratio 1.45 L (1.60-3.17) g/dL Microbiology - Last 24 Hours (Table) 08/01/22 16:59 Blood Culture - Preliminary Blood No Growth after 96 hours 08/01/22 16:55 Blood Culture - Preliminary Blood No Growth after 96 hours Assessment and Plan (1) Shingles rash Status: Acute Code(s): B02.9 - ZOSTER WITHOUT COMPLICATIONS SNOMED Code(s): 2340144 (2) UTI (urinary tract infection) Status: Acute Code(s): N39.0 - URINARY TRACT INFECTION, SITE NOT SPECIFIED SNOMED Code(s): 93733433 Plan: 1patient presented to hospital with a fever weakness lethargy which is likely multifactorial in this patient with a positive UA likely Concerning for a symptomatic urinary tract infection, likely from enteric gram-negative pathogen, The patient blood and urine cultures coming back negative, however the patient fever has responded to Rocephin which will be continued while inpatient finishing therapy with oral antibiotics 2patient with T1 dermatome shingles on the left side, Patient to continue with the Valtrex 1 g every 8 hours to finish a 7 day course of therapy along with Lyrica for postherpetic neuralgia Time with Patient: Less than 30
--- NOTE | 2022-08-07 15:24 | P.PN ---
Subjective Progress Note Date: 08/07/22 Principal diagnosis: UTI and left trunk shingles Patient is a 62 -year-old female with a past medical he significant for abdominal abdomen infection status post removal currently being treated with a wound VAC presented to the hospital with generalized body aches fever she did have a positive UA concerning for UTI and rash to the left side of the chest concerning for zoster. On today's evaluation that is 08/07/2022 the patient denies any fever or any chills, the patient is breathing comfortably on room air, the patient denies chest pain or shortness of breath or cough, the patient pain to the left lower chest/upper abdominal rash area has decreased in intensity, patient denies nausea vomiting and no diarrhea Objective - Vital Signs Vital signs: Vital Signs Temp 98.1 F 08/07/22 07:00 Pulse 66 08/07/22 07:00 Resp 14 08/07/22 07:00 BP 126/78 08/07/22 07:00 Pulse Ox 93 L 08/07/22 07:00 FiO2 Intake & Output 08/06/22 08/07/22 08/07/22 18:59 06:59 18:59 Intake Total 50 Balance 50 Weight 85.275 kg Intake: Intake, IV Titration 50 Amount cefTRIAXone 2 gm In 50 Sodium Chloride 0.9% 50 ml @ 100 mls/hr IVPB Q24HR [facility] Rx#:[id number] Other: # Voids 5 1 - Exam GENERAL DESCRIPTION: Middle-aged female lying in bed, no distress. No tachypnea or accessory muscle of respiration use. LUNGS: Unlabored breathing. Clear to auscultation anteriorly. No wheeze or crackle. HEART: S1, S2, regular rate and rhythm. No loud murmur ABDOMEN: Soft, no tenderness , guarding or rigidity, no organomegaly , left mid trunk zoster rash with no worsening EXTREMITIES: No edema of feet. - Labs CBC & Chem 7: 08/06/22 06:30 08/06/22 06:30 Labs: Microbiology - Last 24 Hours (Table) 08/01/22 16:59 Blood Culture - Preliminary Blood No Growth after 120 hours 08/01/22 16:55 Blood Culture - Preliminary Blood No Growth after 120 hours Assessment and Plan (1) Shingles rash Status: Acute Code(s): B02.9 - ZOSTER WITHOUT COMPLICATIONS SNOMED Code(s): 6724603 (2) UTI (urinary tract infection) Status: Acute Code(s): N39.0 - URINARY TRACT INFECTION, SITE NOT SPECIFIED SNOMED Code(s): 37703223 Plan: 1patient presented to hospital with a fever weakness lethargy which is likely multifactorial in this patient with a positive UA likely Concerning for a symp tomatic urinary tract infection, likely from enteric gram-negative pathogen, The patient blood and urine cultures coming back negative, however the patient fever has responded to Rocephin which will be continued while inpatient finishing therapy with oral Ceftin 7 days of discharge and close outpatient follow-up 2patient with T1 dermatome shingles on the left side, Patient to continue with the Valtrex 1 g every 8 hours to finish a 7 day course of therapy along with Lyrica for postherpetic neuralgia, discussed with the admitting physician working on discharge patient to follow with me in the wound care center next week, local wound care to continue with a wound VAC Time with Patient: Less than 30
== END 2022-08-07 13:52 | disposition home health service (06) | DRG 872 ==
LOC: EC 15:57 → 4SSUR 20:39
PROVIDERS: ADMIT Hospitalist; ATTEND Hospitalist
DX: A41.9 Sepsis, unspecified organism (principal); L03.311 Cellulitis of abdominal wall; B02.29 Other postherpetic nervous system involvement; J98.11 Atelectasis; N39.0 Urinary tract infection, site not specified; Z20.822 Contact with and (suspected) exposure to COVID-19; Z28.310 Unvaccinated for COVID-19; B02.9 Zoster without complications; I10 Essential (primary) hypertension; E78.5 Hyperlipidemia, unspecified; N20.0 Calculus of kidney; F41.9 Anxiety disorder, unspecified; K21.9 Gastro-esophageal reflux disease without esophagitis; Z79.899 Other long term (current) drug therapy; Z87.891 Personal history of nicotine dependence; Z98.84 Bariatric surgery status; Z88.5 Allergy status to narcotic agent; Z88.0 Allergy status to penicillin
CPT/HCPCS: 36415; 71046; 74177; 80048; 80053; 81001; 83605; 83735; 84484; 85025; 85610; 85730; 87040; 87086; 87502; 87635; 93005; 94760; 96361; 96365; 96366; 96375; 96376; 99285

== ENCOUNTER → 2022-09-08 | Outpatient (CLI) | payer BC ==
[2022-09-08 14:48] VITALS: BP 126/81; PULSE 79; RESP 16; TEMP 97.9; BMI 33.2
--- NOTE | 2022-09-08 22:33 | P.BASOAP ---
Subjective Progress Note Date: 09/08/22 Principal diagnosis: Morbid obesity Patient returns for recheck. Doing well. Wound healed a few weeks ago. Her weight has been increasing. Patient would like her lap band port replaced. Objective - Vital Signs Vital signs: Vital Signs Temp 97.9 F 09/08/22 14:46 Pulse 79 09/08/22 14:46 Resp 16 09/08/22 14:46 BP 126/81 09/08/22 14:46 Pulse Ox FiO2 Intake & Output 09/08/22 09/08/22 09/09/22 06:59 18:59 06:59 Weight 93.44 kg - Exam Abdomen: Soft, nondistended, wound is healed, nontender Assessment/Plan Plan: Date: 09/08/22 Initial Weight: 85.275 kg Initial BMI: 30.3 Current Weight: 93.44 kg Current BMI: 33.2 Type of Surgery: Adjustable Gastric Banding Total Volume in Band: Previous Volume: Volume Removed: Volume Added: Band Size: Patient doing well at this time. Options reviewed. We'll proceed with laparoscopic lap band port replacement. We'll obtain intraoperative cultures. This will likely be scheduled after the new year.
== END ==
LOC: BARWHC3 14:18
PROVIDERS: ATTEND Surgery
DX: Z09 Encounter for follow-up examination after completed treatment for conditions other than malignant neoplasm (principal); Z98.84 Bariatric surgery status; Z68.33 Body mass index [BMI] 33.0-33.9, adult; E66.01 Morbid (severe) obesity due to excess calories; Z88.0 Allergy status to penicillin; Z88.5 Allergy status to narcotic agent
CPT/HCPCS: 99211

== ENCOUNTER → 2023-01-26 | Outpatient (CLI) | payer BC ==
[2023-01-26 13:28] VITALS: BP 138/88; PULSE 59; RESP 16; TEMP 98.1; BMI 35.5
--- NOTE | 2023-01-26 16:46 | P.BASOAP ---
Subjective Progress Note Date: 01/26/23 Principal diagnosis: Morbid obesity Patient returns for recheck. Last seen 01/05. She had a 1 mL fill at that time. We are still not sure the size of the patient's lap band. She would like a fill. She has gained 4 pounds. Denies fevers. No swelling. Objective - Vital Signs Vital signs: Vital Signs Temp 98.1 F 01/26/23 13:25 Pulse 59 L 01/26/23 13:25 Resp 16 01/26/23 13:25 BP 138/88 01/26/23 13:25 Pulse Ox FiO2 Intake & Output 01/25/23 01/26/23 01/26/23 18:59 06:59 18:59 Weight 99.79 kg - Exam Abdomen: Soft, nondistended, no erythema, incision clean and dry, no palpable seroma Assessment/Plan (1) Morbid obesity Narrative/Plan: Patient doing well. We'll add another 1 mL of fluid to the band. Check old records to see exactly what size band this is. Monitor for recurrent infection. The patient's lap band port was palpated. The site was aseptically prepped. The Vargas needle was advanced into the port. A total of 1 ml of fluid was added for a total of 2 mL. Aspiration around the port resulted in less than 1 mL of serosanguineous fluid.. Pressure was held and a sterile dressing was applied. Plan: Date: 01/26/23 Initial Weight: 85.275 kg Initial BMI: 30.3 Current Weight: 99.79 kg Current BMI: 35.5 Type of Surgery: Vertical Sleeve Gastrectomy Total Volume in Band: 1 Previous Volume: Volume Removed: Volume Added: Band Size:
== END ==
LOC: BARWHC3 13:12
PROVIDERS: ATTEND Surgery
DX: E66.01 Morbid (severe) obesity due to excess calories (principal); Z68.35 Body mass index [BMI] 35.0-35.9, adult; Z88.5 Allergy status to narcotic agent; Z88.0 Allergy status to penicillin
CPT/HCPCS: 99212

== ENCOUNTER → 2023-02-09 | Outpatient (CLI) | payer BC ==
[2023-02-09 13:52] VITALS: BP 144/88; PULSE 83; RESP 16; TEMP 97.7; BMI 35.0
--- NOTE | 2023-02-09 16:30 | P.BASOAP ---
Subjective Progress Note Date: 02/09/23 Principal diagnosis: Morbid obesity Patient returns for recheck. She was last seen 01/26. Band was filled from 1 mL to 2 mL. Looking at her old records it appears she has a 4 mL band although this is not 100% confirmed. She says she does not feel any restriction. She would like more fluid added. Denies fevers. Patient also has complaints of a breast mass left breast. Noticed in the last 1 month or so. He probably does not have a primary care physician. She believes her last mammogram bilateral was 6 months ago. Previous reconstruction bilateral breasts. Objective - Vital Signs Vital signs: Vital Signs Temp 97.7 F 02/09/23 13:50 Pulse 83 02/09/23 13:50 Resp 16 02/09/23 13:50 BP 144/88 02/09/23 13:50 Pulse Ox FiO2 Intake & Output 02/08/23 02/09/23 02/09/23 18:59 06:59 18:59 Weight 98.43 kg - Exam Abdomen: Soft, nontender, nondistended Left breast with 8 mm mass 2:00 nontender, exam performed with MA in attendance Assessment/Plan (1) Morbid obesity Narrative/Plan: 62-year-old female requesting LAP-BAND adjustment. Options reviewed. Will add 0.5 mL today. Will order a left breast ultrasound and diagnostic mammogram. She will follow up in our Gen. surgery office after that. The patient's lap band port was palpated. The site was aseptically prepped. The Vargas needle was advanced into the port. A total of 0.5 ml of fluid was added for a total of 2.5 mL. Pressure was held and a sterile dressing was applied. Plan: Date: 02/09/23 Initial Weight: 85.275 kg Initial BMI: 30.3 Current Weight: 98.43 kg Current BMI: 35.0 Type of Surgery: Adjustable Gastric Banding Total Volume in Band: 1 Previous Volume: Volume Removed: Volume Added: Band Size:
== END ==
LOC: BARWHC3 13:18
PROVIDERS: ATTEND Surgery
DX: E66.01 Morbid (severe) obesity due to excess calories (principal); Z46.51 Encounter for fitting and adjustment of gastric lap band; Z68.35 Body mass index [BMI] 35.0-35.9, adult; Z88.5 Allergy status to narcotic agent; Z88.0 Allergy status to penicillin
CPT/HCPCS: 99212

== ENCOUNTER → 2023-02-22 | Outpatient (CLI) | payer BC ==
--- NOTE | 2023-02-22 13:59 | MM ---
Reason for Exam: Clinical finding. Last screening mammogram was performed 5 month(s) ago. Patient History: Menarche at age 10. First Full-Term at age 17. Hysterectomy at age 22. Postmenopausal. Bilateral Implants. Daughter had breast cancer, age 35. Risk Values: May 5 year model risk: 3.0%. NCI Lifetime model risk: 11.8%. Prior Study Comparison: 12/06/2020 Bilateral Screening Mammogram, [facility]. 08/22/2021 Bilateral Diagnostic Mammogram, [facility]. 09/19/2022 Bilateral Screening Mammogram, [facility]. Tissue Density: Left: There are scattered fibroglandular densities. Findings: Analyzed By CAD. Palpable abnormality corresponds to asymmetric prominent soft tissue within the slightly upper outer aspect. Increasing indistinct calcifications are present which do not layer. Left breast subcutaneous implant is redemonstrated. Increasing distortion noted. Overall Assessment: Incomplete: need additional imaging evaluation, BI-RAD 0 Management: Diagnostic Breast Ultrasound of the left breast. Targeted ultrasound. Electronically signed and approved by: Aurelio Barrett M.D.
--- NOTE | 2023-02-22 14:01 | USB ---
Reason for Exam: Clinical finding. Patient History: Menarche at age 10. First Full-Term at age 17. Hysterectomy at age 22. Postmenopausal. Bilateral Implants. Daughter had breast cancer, age 35. Risk Values: May 5 year model risk: 3.0%. NCI Lifetime model risk: 11.8%. Technique: Method: Targeted. Findings: The upper outer quadrant of the left breast, the axilla of the left breast and the retroareolar of the left breast were scanned. Targeted ultrasound shows 1.5 x 1.6 x 2.0 cm hypoechoic oval mass at 1:00 position 4 cm distance from nipple and similar adjacent mass at 2:00 position measuring 2.0 cm long axis without posterior acoustic features or significant vascularity.. Overall Assessment: Suspicious, BI-RAD 4 Management: Ultrasound Core Biopsy of the left breast. Targeted ultrasound biopsy both nearby masses believed to correspond to area of calcification suspicion on mammogram and palpable abnormality. Results were given to the patient verbally at the time of exam. Electronically signed and approved by: Aurelio Barrett M.D.
== END | disposition home or self-care (01) ==
LOC: RADMAMWWP 06:42
PROVIDERS: ATTEND Surgery
DX: N63.20 Unspecified lump in the left breast, unspecified quadrant (principal); Z78.0 Asymptomatic menopausal state; Z80.3 Family history of malignant neoplasm of breast
CPT/HCPCS: 77061; 77065

== ENCOUNTER → 2023-02-23 | Outpatient (CLI) | payer BC ==
[2023-02-23 13:13] VITALS: BP 142/87; PULSE 59; RESP 16; TEMP 97.8; BMI 34.3
--- NOTE | 2023-02-23 16:23 | P.BASOAP ---
Subjective Progress Note Date: 02/23/23 Principal diagnosis: Morbid obesity Patient doing well since last visit. She did have her breast ultrasound and mammogram. She has a core biopsy scheduled. Patient says she still feels little restriction. No dysphagia. She would like an additional fill. Objective - Vital Signs Vital signs: Vital Signs Temp 97.8 F 02/23/23 13:11 Pulse 59 L 02/23/23 13:11 Resp 16 02/23/23 13:11 BP 142/87 02/23/23 13:11 Pulse Ox FiO2 Intake & Output 02/22/23 02/23/23 02/23/23 18:59 06:59 18:59 Weight 96.615 kg - Exam Abdomen: Soft, nontender, nondistended Assessment/Plan (1) Morbid obesity Narrative/Plan: Patient doing well at this time. We will add an additional 0.3 mL. Total 2.8 m L. Follow-up after breast biopsy. Follow up bariatric Center 1 month. The patient's lap band port was palpated. The site was aseptically prepped. The Vargas needle was advanced into the port. A total of 0.3 ml of fluid was added for a total of 2.8 mL. Pressure was held and a sterile dressing was applied. Plan: Date: 02/23/23 Initial Weight: 85.275 kg Initial BMI: 30.3 Current Weight: 96.615 kg Current BMI: 34.3 Type of Surgery: Total Volume in Band: 2.5 Previous Volume: Volume Removed: Volume Added: Band Size:
== END ==
LOC: BARWHC3 12:50
PROVIDERS: ATTEND Surgery
DX: E66.01 Morbid (severe) obesity due to excess calories (principal); Z68.34 Body mass index [BMI] 34.0-34.9, adult; Z46.51 Encounter for fitting and adjustment of gastric lap band; Z88.0 Allergy status to penicillin; Z88.5 Allergy status to narcotic agent
CPT/HCPCS: 99212

== ENCOUNTER → 2023-03-05 | Day surgery (SDC) | payer BC ==
--- NOTE | 2023-03-10 10:55 | MM ---
Reason for Exam: Post Procedure Mammogram. Last screening mammogram was performed 6 month(s) ago. Patient History: Menarche at age 10. First Full-Term at age 17. Hysterectomy at age 22. Postmenopausal. Bilateral Implants. Daughter had breast cancer, age 35. Risk Values: May 5 year model risk: 3.0%. NCI Lifetime model risk: 11.8%. Prior Study Comparison: 08/22/2021 Bilateral Diagnostic Mammogram, [facility]. 09/19/2022 Bilateral Screening Mammogram, [facility]. 02/22/2023 Left MG 3D diag mammo imp w/cad LT, [facility]. Tissue Density: Left: The breast tissue is heterogeneously dense. This may lower the sensitivity of mammography. Pathology Description: Location: 2 o'clock. Marker Left Behind. Cores: 4 Gauge: 13 Pathology Description: Location: 1 o'clock. Marker Left Behind. Cores: 3 Gauge: 13 The procedure of ultrasound guided core biopsy was explained to the patient. Benefits, alternatives, and risks were discussed. An informed consent was then obtained. The patient was placed in supine positioning for imaging and for the procedure. The overlying skin was prepped and draped in usual sterile fashion. Lidocaine was used as anesthetic into the skin and subcutaneous tissue up to area of concern in the left breast at 1:00. Under ultrasound guidance, a 12-gauge vacuum assisted biopsy gun device was used to obtain 3 core samples. Following this, a biopsy clip (coil) was left in lesion. Then the attention was turned to the second mass in the left breast. Lidocaine was used as anesthetic into the skin and subcutaneous tissue up to area of concern in the left breast at 2:00. Under ultrasound guidance, a 12-gauge vacuum assisted biopsy gun device was used to obtain 4 core samples. Following this, a biopsy clip (butterfly hydromark) was left in lesion. The patient tolerated the procedure well without any immediate complication. The patient was kept in the radiology department for short stay after the procedure and then discharged home in stable condition. Postprocedure mammogram: The patient was transferred to mammography for physician ordered post procedure mammogram for clip placement verification. Postprocedure mammogram demonstrates both bicycles to be in appropriate position within the left breast. Impression: Successful, uncomplicated ultrasound guided core biopsy of 2 masses within the left breast that 1:00 and 2:00, full pathology results to follow. Pathology Results: Result: Benign, Fat necrosis. A. LEFT BREAST, 1:00, NEEDLE CORE BIOPSY: Fat necrosis with scar and calcifications. Negative for neoplasm. B. LEFT BREAST, 2:00, NEEDLE CORE BIOPSY: Fat necrosis with scar, histiocytes, chronic inflammation and cholesterol clefts. Negative for neoplasm. Overall Assessment: Benign Assessment: MG diagnostic mammo LT wo CAD. - Left: Benign, BI-RAD 2. Management: Screening Mammogram of both breasts in 1 year. Electronically signed and approved by: Edi Vu D.O.
== END ==
LOC: RADUSWWP 09:59
PROVIDERS: ATTEND Surgery
DX: N64.1 Fat necrosis of breast (principal); R92.1 Mammographic calcification found on diagnostic imaging of breast; Z90.710 Acquired absence of both cervix and uterus; Z80.3 Family history of malignant neoplasm of breast; Z98.82 Breast implant status; Z78.0 Asymptomatic menopausal state
CPT/HCPCS: 88305; 77065; 19083; 19084; A4648

== ENCOUNTER → 2023-04-06 | Outpatient (CLI) | payer BC ==
[2023-04-06 13:57] VITALS: BP 138/92; PULSE 75; RESP 16; TEMP 97; BMI 33.7
--- NOTE | 2023-04-06 14:36 | P.BASOAP ---
Subjective Progress Note Date: 04/06/23 Principal diagnosis: Morbid obesity Patient returns for recheck. Patient says she still wants more fluid added. She feels a little bit of restriction at this time. No pain. No fevers. Objective - Vital Signs Vital signs: Vital Signs Temp 97 F L 04/06/23 13:55 Pulse 75 04/06/23 13:55 Resp 16 04/06/23 13:55 BP 138/92 04/06/23 13:55 Pulse Ox FiO2 Intake & Output 04/05/23 04/06/23 04/06/23 18:59 06:59 18:59 Weight 94.801 kg - Exam Abdomen: Soft, nontender, nondistended Assessment/Plan (1) Morbid obesity Narrative/Plan: Patient interested in lap band adjustment. The patient's lap band port was palpated. The site was aseptically prepped. The Vargas needle was advanced into the port. A total of 0.2 ml of fluid was added for a total of 3.0 mL. Pressure was held and a sterile dressing was applied. Plan: Date: 04/06/23 Initial Weight: 85.275 kg Initial BMI: 30.3 Current Weight: 94.801 kg Current BMI: 33.7 Type of Surgery: Adjustable Gastric Banding Total Volume in Band: 2.5 Previous Volume: Volume Removed: Volume Added: Band Size:
== END ==
LOC: BARWHC3 13:47
PROVIDERS: ATTEND Surgery
DX: E66.01 Morbid (severe) obesity due to excess calories (principal); Z46.51 Encounter for fitting and adjustment of gastric lap band; Z68.33 Body mass index [BMI] 33.0-33.9, adult; Z88.5 Allergy status to narcotic agent; Z88.0 Allergy status to penicillin
CPT/HCPCS: 99212

== ENCOUNTER → 2023-05-11 | Outpatient (CLI) | payer BC ==
[2023-05-11 13:59] VITALS: BP 120/81; PULSE 82; RESP 16; TEMP 97.6; BMI 31.9
--- NOTE | 2023-05-11 16:57 | P.BASOAP ---
Subjective Progress Note Date: 05/11/23 Principal diagnosis: Morbid obesity Patient returns for recheck. Last seen on 04/06. An 0.2 mL added for a total of 3 mL. Says she has good restriction. She has lost be some weight since that time. Denies redness or fevers. Objective - Vital Signs Vital signs: Vital Signs Temp 97.6 F 05/11/23 13:56 Pulse 82 05/11/23 13:56 Resp 16 05/11/23 13:56 BP 120/81 05/11/23 13:56 Pulse Ox FiO2 Intake & Output 05/10/23 05/11/23 05/11/23 18:59 06:59 18:59 Weight 89.811 kg - Exam Abdomen: Soft, nondistended, incision clean and dry Assessment/Plan (1) Morbid obesity Narrative/Plan: 63-year-old female doing well after previous port replacement. Adequate restriction at this time. Continue to monitor level of restriction. Follow-up as needed. Plan: Date: 05/11/23 Initial Weight: 85.275 kg Initial BMI: 30.3 Current Weight: 89.811 kg Current BMI: 31.9 Type of Surgery: Adjustable Gastric Banding Total Volume in Band: 3.0 Previous Volume: Volume Removed: Volume Added: Band Size:
== END ==
LOC: BARWHC3 13:13
PROVIDERS: ATTEND Surgery
DX: Z48.815 Encounter for surgical aftercare following surgery on the digestive system (principal); E66.01 Morbid (severe) obesity due to excess calories; Z68.32 Body mass index [BMI] 32.0-32.9, adult; Z46.51 Encounter for fitting and adjustment of gastric lap band; Z98.84 Bariatric surgery status; Z88.0 Allergy status to penicillin; Z88.5 Allergy status to narcotic agent
CPT/HCPCS: 99211

== ENCOUNTER → 2023-06-17 | Outpatient (CLI) | payer BC ==
[2023-06-17 15:53] VITALS: BP 124/83; PULSE 79; RESP 16; TEMP 98; BMI 29.9
--- NOTE | 2023-06-17 16:00 | P.BASOAP ---
Subjective Progress Note Date: 06/17/23 Principal diagnosis: Dysphagia Patient states about 3 weeks ago she was eating some nuts and had some dysphagia. Ever since then she has had dysphagia to solid foods. She is tolerating liquids but even liquids sometimes are difficult. She says she was hoping it would get better on its own. She currently has 3.0 mL in her band. No pain. Objective - Vital Signs Vital signs: Vital Signs Temp 98 F 06/17/23 15:51 Pulse 79 06/17/23 15:51 Resp 16 06/17/23 15:51 BP 124/83 06/17/23 15:51 Pulse Ox FiO2 Intake & Output 06/16/23 06/17/23 06/17/23 18:59 06:59 18:59 Weight 84.368 kg - Exam Abdomen: Soft, nontender, nondistended Assessment/Plan (1) Dysphagia Narrative/Plan: 63-year-old female with dysphagia. Will loosen the patient's band. Under aseptic conditions 1.0 mL was removed. Patient has a residual 2 mL in her band. Monitor symptoms closely. If dysphagia persists will empty band and checked upper GI. Plan: Date: 06/17/23 Initial Weight: 85.275 kg Initial BMI: 30.3 Current Weight: 84.368 kg Current BMI: 29.9 Type of Surgery: Adjustable Gastric Banding Total Volume in Band: 2.0 Previous Volume: 3.0 Volume Removed: 1.0 Volume Added: Band Size:
== END ==
LOC: BARWHC3 14:22
PROVIDERS: ATTEND Surgery
DX: E66.01 Morbid (severe) obesity due to excess calories (principal); Z68.29 Body mass index [BMI] 29.0-29.9, adult; Z46.51 Encounter for fitting and adjustment of gastric lap band; Z88.5 Allergy status to narcotic agent; Z88.0 Allergy status to penicillin
CPT/HCPCS: 99212

== ENCOUNTER → 2023-08-24 | Outpatient (CLI) | payer BC ==
--- NOTE | 2023-08-24 15:20 | P.BASOAP ---
Subjective Progress Note Date: 08/24/23 Principal diagnosis: Morbid obesity Patient returns for recheck. Doing well since last visit. She would like more fluid added to her band. She states she is not having enough restriction. She currently has 2.5 mL in her band. She was previously too tight at 3 mL. She would like to try 3 mL again. Objective - Vital Signs Vital signs: Vital Signs Temp 98.4 F 08/24/23 15:06 Pulse 86 08/24/23 15:06 Resp 16 08/24/23 15:06 BP 138/89 08/24/23 15:06 Pulse Ox FiO2 Intake & Output 08/23/23 08/24/23 08/24/23 18:59 06:59 18:59 Weight 90.265 kg - Exam Abdomen: Soft, nontender, nondistended Assessment/Plan (1) Morbid obesity Narrative/Plan: Patient doing well. We'll add 0.5 mL for a total of 3 mL. Follow-up if restriction lacking. Plan: Date: 08/24/23 Initial Weight: 85.275 kg Initial BMI: 30.3 Current Weight: 90.265 kg Current BMI: 32.1 Type of Surgery: Adjustable Gastric Banding Total Volume in Band: 2.5 Previous Volume: Volume Removed: Volume Added: Band Size:
[2023-08-24 15:21] VITALS: BP 138/89; PULSE 86; RESP 16; TEMP 98.4; BMI 32.1
== END ==
LOC: BARWHC3 14:33
PROVIDERS: ATTEND Surgery
DX: E66.01 Morbid (severe) obesity due to excess calories (principal); Z46.51 Encounter for fitting and adjustment of gastric lap band; Z68.32 Body mass index [BMI] 32.0-32.9, adult; Z88.5 Allergy status to narcotic agent; Z88.0 Allergy status to penicillin; Z98.84 Bariatric surgery status
CPT/HCPCS: 99212

== ENCOUNTER → 2024-01-11 | Outpatient (CLI) | payer BC ==
[2024-01-11 13:33] VITALS: BP 153/81; PULSE 80; TEMP 98.1; BMI 30.4
--- NOTE | 2024-01-11 14:39 | P.BASOAP ---
Subjective Progress Note Date: 01/11/24 Principal diagnosis: Morbid obesity Patient here today requesting a Lap-Band adjustment. Patient has 3 cc in her band. Says that recently she has noticed decreased restriction. Able to eat most things. She has noticed slight increased weight gain recently. She is down 10 pounds since her last visit in August. No GERD, no night cough. Objective - Vital Signs Vital signs: Vital Signs Temp 98.1 F 01/11/24 13:10 Pulse 80 01/11/24 13:10 Resp BP 153/81 01/11/24 13:10 Pulse Ox FiO2 Intake & Output 01/10/24 01/11/24 01/11/24 18:59 06:59 18:59 Weight 85.729 kg - Exam Abdomen: Soft, nontender, nondistended Assessment/Plan (1) Morbid obesity Narrative/Plan: 63-year-old female requesting Lap-Band adjustment. Discussed risks of increasing fluid volume. Patient has decreased restriction lately. Will try 3.2 cc. The patient's lap band port was palpated. The site was aseptically prepped. The Vargas needle was advanced into the port. A total of 0.2 ml of fluid was added for a total of 3.2 cc. Pressure was held and a sterile dressing was applied. Plan: Date: 01/11/24 Initial Weight: 85.275 kg Initial BMI: 30.3 Current Weight: 85.729 kg Current BMI: 30.4 Type of Surgery: Total Volume in Band: 3.0 Previous Volume: Volume Removed: Volume Added: Band Size:
== END | disposition home or self-care (01) ==
LOC: BARWHC3 12:27
PROVIDERS: ATTEND Surgery
DX: E66.01 Morbid (severe) obesity due to excess calories (principal); Z68.30 Body mass index [BMI] 30.0-30.9, adult; Z88.5 Allergy status to narcotic agent; Z88.0 Allergy status to penicillin
CPT/HCPCS: 43999

== ENCOUNTER → 2024-02-22 | Outpatient (CLI) | payer BC ==
[2024-02-22 15:01] VITALS: BP 137/85; PULSE 118; RESP 16; TEMP 98.3; BMI 29.2
--- NOTE | 2024-02-22 16:38 | P.BASOAP ---
Subjective Progress Note Date: 02/22/24 Principal diagnosis: Abdominal wound 63-year-old female known to our service. She was last seen on 01/10. Apparently 2 days later she had revision of her abdominal plasty. She has a large Pfannenstiel incision and a large midline incision. She has a small wound present at the upper aspect of her midline incision and also at the T junction inferiorly. She has been feeling somewhat poorly but told she had a urinary infection and renal colic. Says she has multiple kidney stones. Recently had her white blood cell count checked which was normal. Denies fevers. Only mild serous discharge. She has been following twice a week with her plastic surgeon. She had a recent CAT scan showing a seroma. She sees her plastic surgeon again in 2 days. Patient is known to our service from previous lap band and also more pertinently she had a abdominal abscess at the site of a previous tummy tuck where her Lap-Band port was involved in the infection and had to be removed. Her heart rate today was 118 on arrival. Repeat heart rate 103. Objective - Vital Signs Vital signs: Vital Signs Temp 98.3 F 02/22/24 14:56 Pulse 118 H 02/22/24 14:56 Resp 16 02/22/24 14:56 BP 137/85 02/22/24 14:56 Pulse Ox FiO2 Intake & Output 02/21/24 02/22/24 02/22/24 18:59 06:59 18:59 Weight 82.1 kg - Exam Abdomen: Soft, nondistended, recent incisions noted, small wounds present 1 at the apex and 1 inferiorly, both wounds were relatively small with minimal serous drainage, no erythema, minimal tenderness, no tenderness over right upper quadrant port site Assessment/Plan (1) Morbid obesity Narrative/Plan: 63-year-old female having some issues related to wound healing after recent tummy tuck revision. Patient has been following closely with her plastic surgeon. No signs at this time that there is infection of the replaced port. Seroma on CAT scan described. No findings on exam necessitating need for drainage. Would however defer to plastic surgery regarding the seroma. Patient will contact me with any additional issues related to her Lap-Band. Encourage patient to follow-up with her primary care physician as well regarding the recent urinary infection and renal colic described by the ER. Decision regarding infectious disease consultation or wound care per plastics and primary care. Plan: Date: 02/22/24 Initial Weight: 85.275 kg Initial BMI: 30.3 Current Weight: 82.1 kg Current BMI: 29.2 Type of Surgery: Adjustable Gastric Banding Total Volume in Band: 3.0 Previous Volume: Volume Removed: Volume Added: Band Size:
== END ==
LOC: BARWHC3 14:12
PROVIDERS: ATTEND Surgery
DX: E66.01 Morbid (severe) obesity due to excess calories (principal); N39.0 Urinary tract infection, site not specified; Z68.29 Body mass index [BMI] 29.0-29.9, adult; Z88.8 Allergy status to other drugs, medicaments and biological substances; Z88.0 Allergy status to penicillin
CPT/HCPCS: 99211

== ENCOUNTER 2024-03-17 18:28 | Inpatient (IN) | payer BC, MEDICARE ==
--- NOTE | 2024-03-17 19:19 | ED ---
General Adult HPI - General Stated complaint: Head pain, possible sepsis Time Seen by Provider: 03/17/24 19:17 Source: patient Mode of arrival: ambulatory Limitations: no limitations - History of Present Illness Initial comments: 64-year-old female presenting with chief complaint of nausea and headache. Patient has an open abdominal wound after a tummy tuck surgery back in December. She is currently being treated for MRSA, she was previously on Cipro and Bactrim. Home nurse sent her in today due to worsening drainage from this wound. Reports "I just do not feel good". She is concerned because she has a history of sepsis after previous abdominal wall infection after surgery. - Related Data Home Medications Medication Instructions Recorded Confirmed Famotidine [Pepcid] 20 mg PO DAILY 06/02/22 03/18/24 Metoprolol Tartrate [Lopressor] 25 mg PO BID 08/01/22 03/18/24 Cyclobenzaprine [Flexeril] 10 mg PO TID PRN 03/18/24 03/18/24 HYDROcodone/APAP 7.5-325MG [[place] 1 tab PO QID PRN 03/18/24 03/18/24 7.5-325] Linezolid [Zyvox] 600 mg PO BID 03/18/24 03/18/24 Tamsulosin [Flomax] 0.4 mg PO DIRECTED 03/18/24 03/18/24 Allergies Allergy/AdvReac Type Severity Reaction Status Date / Time hydromorphone [From Dilaudid] Allergy Nausea & Verified 03/18/24 17:09 Vomiting Penicillins Allergy Anaphylaxis Verified 03/18/24 17:09 clindamycin AdvReac Nausea & Verified 03/18/24 17:09 Vomiting Review of Systems ROS Statement: Those systems with pertinent positive or pertinent negative responses have been documented in the HPI. ROS Other: All systems not noted in ROS Statement are negative. Past Medical History Past Medical History: GERD/Reflux, Hyperlipidemia, Hypertension Additional Past Medical History / Comment(s): DIVERICULITIS History of Any Multi-Drug Resistant Organisms: None Reported Past Surgical History: Bariatric Surgery, Bowel Resection, Breast Surgery Additional Past Surgical History / Comment(s): DIVERTICULITIS. Breast augmentation, tummy tuck 2020. x 2. lap band 2006,Port Removed F/U 09/08/22 Past Anesthesia/Blood Transfusion Reactions: No Reported Reaction Past Psychological History: Anxiety Smoking Status: Former smoker Past Alcohol Use History: Occasional Additional Past Alcohol Use History / Comment(s): smoked for 2 months 30 yrs ago Past Drug Use History: None Reported - Past Family History Daughter(s) Family Medical History: Cancer Additional Family Medical History / Comment(s): Breast cancer. General Exam - General Exam Comments Initial Comments: Visual Physical Exam Vital signs reviewed General: Well-appearing, nontoxic, no acute distress. Head: Normocephalic, atraumatic Eyes: PERRLA, EOMI ENT: Airway patent Chest: Nonlabored breathing Skin: No visual rash, normal skin tone Neuro: Alert and oriented 3 Musculoskeletal: No gross abnormalities Limitations: no limitations General appearance: alert, in no apparent distress Head exam: Present: atraumatic, normocephalic Eye exam: Present: normal appearance, EOMI Neck exam: Present: normal inspection. Absent: meningismus Respiratory exam: Present: normal lung sounds bilaterally. Absent: respiratory distress, wheezes, rales, rhonchi, stridor Cardiovascular Exam: Present: regular rate, normal rhythm, normal heart sounds. Absent: systolic murmur, diastolic murmur, rubs, gallop, clicks GI/Abdominal exam: Present: soft, tenderness. Absent: distended, guarding, rebound, rigid Neurological exam: Present: alert, oriented X3 Psychiatric exam: Present: normal affect, normal mood Skin exam: Present: other (Open wound to the midline of the abdominal wall) Course Vital Signs 03/17/24 03/17/24 03/17/24 19:14 22:45 23:39 Temperature 98.5 F Pulse Rate 103 H 80 79 Respiratory 16 16 16 Rate Blood Pressure 152/99 156/105 146/85 O2 Sat by Pulse 98 98 96 Oximetry 03/18/24 03/18/24 03/18/24 01:30 02:50 04:00 Temperature Pulse Rate 83 73 72 Respiratory 18 16 18 Rate Blood Pressure 133/84 149/91 144/84 O2 Sat by Pulse 95 96 97 Oximetry 03/18/24 05:18 Temperature Pulse Rate 74 Respiratory 16 Rate Blood Pressure 124/58 O2 Sat by Pulse 95 Oximetry Medical Decision Making - Medical Decision Making I performed the quick note portion of this visit, electronically signed Noel Burton PA-C Was pt. sent in by a medical professional or institution (CORINNA Veras, GREETING CARD WRITER, urgent care, hospital, or residential...) When possible be specific @ -Sent by home nurse Did you speak to anyone other than the patient for history (EMS, parent, family, police, friend...)? What history was obtained from this source @ -No Did you review nursing and triage notes (agree or disagree)? Why? @ -I reviewed and agree with nursing and triage notes Were old charts reviewed (outside hosp., previous admission, EMS record, old EKG, old radiological studies, urgent care reports/EKG's, residential records)? Report findings @ -No old charts were reviewed Differential Diagnosis (chest pain, altered mental status, abdominal pain women, abdominal pain men, vaginal bleeding, weakness, fever, dyspnea, syncope, headache, dizziness, GI bleed, back pain, seizure, CVA, palpatations, mental health, musculoskeletal)? @ -Differential includes cellulitis, abscess, hematoma, seroma, this is not an all-inclusive list EKG interpreted by me (3pts min.). @ -As above X-rays interpreted by me (1pt min.). @ -None done CT interpreted by me (1pt min.). @ -CT shows subcutaneous organizing fluid collection along the anterior abdominal wall suspicious for seroma versus less likely abscess versus hematoma. Gastric lap band which appears in appropriate position. Bilateral nonobstructing renal calculi. Small hiatal hernia. U/S interpreted by me (1pt. min.). @ -None done What testing was considered but not performed or refused? (CT, X-rays, U/S, labs)? Why? @ -None What meds were considered but not given or refused? Why? @ -None Did you discuss the management of the patient with other professionals ( professionals i.e. CORINNA Veras, GREETING CARD WRITER, lab, RT, psych nurse, nursing home social worker, upper extremity surgeon, teacher, returning officer, casey saw operator)? Give summary @ -Spoke with Dr. Finney who was agreeable with starting antibiotics and admitting the patient to medicine with surgery consult Was smoking cessation discussed for >3mins.? @ -No Was critical care preformed (if so, how long)? @ -No Were there social determinants of health that impacted care today? How? (Homelessness, low income, unemployed, alcoholism, drug addiction, transportation, low edu. Level, literacy, decrease access to med. care, assisted, rehab)? @ -No Was there de-escalation of care discussed even if they declined (Discuss DNR or withdrawal of care, Hospice)? DNR status @ -No What co-morbidities impacted this encounter? (DM, HTN, Smoking, COPD, CAD, C ancer, CVA, ARF, Chemo, Hep., AIDS, mental health diagnosis, sleep apnea, morbid obesity)? @ -None Was patient admitted / discharged? Hospital course, mention meds given and route, prescriptions, significant lab abnormalities, going to OR and other pertinent info. @ -64-year-old female presenting with chief complaint of worsening pain and drainage from her abdominal wound. She has had delayed healing after a tummy tuck revision back in December. This was performed by Dr. Mack at a surgical [facility]. I initially performed a quick note portion of this visit and then assume the care of this patient after she was brought back to room. History and physical exam are conducted. Lab work shows no leukocytosis or anemia. CMP requires no action. She is negative for influenza, RSV, COVID. Urine shows no infectious process. CT shows abdominal wall fluid collection. Given that the patient's surgeon only works through his surgical center and has no hospital affiliations I spoke with general surgeon on-call Dr. Finney who has seen the patient in the past for Lap-Band surgery. He was agreeable with admitting the patient on antibiotics and placing surgery on consult. Patient is agreeable w ith this plan. She is started on vancomycin. I discussed this case with my attending Dr. celeste Undiagnosed new problem with uncertain prognosis? @ -No Drug Therapy requiring intensive monitoring for toxicity (Heparin, Nitro, Insulin, Cardizem)? @ -No Were any procedures done? @ -No Diagnosis/symptom? @ -Cellulitis, fluid collection of the abdominal wall Acute, or Chronic, or Acute on Chronic? @ -Acute Uncomplicated (without systemic symptoms) or Complicated (systemic symptoms)? @ -Complicated Side effects of treatment? @ -No Exacerbation, Progression, or Severe Exacerbation? @ -No Poses a threat to life or bodily function? How? (Chest pain, [place], [place], pneumonia, PE, COPD, DKA, ARF, appy, cholecystitis, CVA, Diverticulitis, Homicidal, Suicidal, threat to staff... and all critical care pts) @ -Yes - Lab Data Result diagrams: 03/17/24 22:47 03/17/24 22:47 Lab Results 03/17/24 03/17/24 03/17/24 Range/Units 19:24 22:47 22:47 WBC 7.1 (3.8-10.6) k/uL RBC 4.96 (3.80-5.40) m/uL Hgb 14.3 (11.4-16.0) gm/dL Hct 44.4 (34.0-46.0) % MCV 89.5 (80.0-100.0) fL MCH 28.9 (25.0-35.0) pg MCHC 32.3 (31.0-37.0) g/dL RDW 14.0 (11.5-15.5) % Plt Count 269 (150-450) k/uL MPV 9.6 Neutrophils % 54 % Lymphocytes % 31 % Monocytes % 6 % Eosinophils % 4 % Basophils % 1 % Neutrophils # 3.9 (1.3-7.7) k/uL Lymphocytes # 2.3 (1.0-4.8) k/uL Monocytes # 0.5 (0-1.0) k/uL Eosinophils # 0.3 (0-0.7) k/uL Basophils # 0.1 (0-0.2) k/uL Sodium 140 (137-145) mmol/L Potassium 4.5 (3.5-5.1) mmol/L Chloride 107 (98-107) mmol/L Carbon Dioxide 24 (22-30) mmol/L Anion Gap 9 mmol/L BUN 15 (7-17) mg/dL Creatinine 0.79 (0.52-1.04) mg/dL Est GFR (CKD-EPI)AfAm >90 (>60 ml/min/1.73 sqM) Est GFR (CKD-EPI)NonAf 79 (>60 ml/min/1.73 sqM) Glucose 100 H (74-99) mg/dL Plasma Lactic Acid Buster (0.7-2.0) mmol/L Calcium 9.5 (8.4-10.2) mg/dL Total Bilirubin 0.8 (0.2-1.3) mg/dL AST 33 (14-36) U/L ALT 19 (4-34) U/L Alkaline Phosphatase 69 (38-126) U/L Total Protein 8.2 (6.3-8.2) g/dL Albumin 4.7 (3.5-5.0) g/dL Urine Color Colorless Urine Appearance Clear (Clear) Urine pH 6.5 (5.0-8.0) Ur Specific [place] 1.009 (1.001-1.035) Urine Protein Negative (Negative) Urine Glucose (UA) Negative (Negative) Urine Ketones Negative (Negative) Urine Blood Negative (Negative) Urine Nitrite Negative (Negative) Urine Bilirubin Negative (Negative) Urine Urobilinogen <2.0 (<2.0) mg/dL Ur Leukocyte Esterase Small H (Negative) Urine RBC 1 (0-5) /hpf Urine WBC 3 (0-5) /hpf Ur Squamous Epith Cells 1 (0-4) /hpf Hyaline Casts 1 (0-2) /lpf Urine Mucus Rare H (None) /hpf Influenza Type A (PCR) (Not Detectd) Influenza Type B (PCR) (Not Detectd) RSV (PCR) (Not Detectd) SARS-CoV-2 (PCR) (Not Detectd) 03/17/24 03/17/24 Range/Units 22:47 22:51 WBC (3.8-10.6) k/uL RBC (3.80-5.40) m/uL Hgb (11.4-16.0) gm/dL Hct (34.0-46.0) % MCV (80.0-100.0) fL MCH (25.0-35.0) pg MCHC (31.0-37.0) g/dL RDW (11.5-15.5) % Plt Count (150-450) k/uL MPV Neutrophils % % Lymphocytes % % Monocytes % % Eosinophils % % Basophils % % Neutrophils # (1.3-7.7) k/uL Lymphocytes # (1.0-4.8) k/uL Monocytes # (0-1.0) k/uL Eosinophils # (0-0.7) k/uL Basophils # (0-0.2) k/uL Sodium (137-145) mmol/L Potassium (3.5-5.1) mmol/L Chloride (98-107) mmol/L Carbon Dioxide (22-30) mmol/L Anion Gap mmol/L BUN (7-17) mg/dL Creatinine (0.52-1.04) mg/dL Est GFR (CKD-EPI)AfAm (>60 ml/min/1.73 sqM) Est GFR (CKD-EPI)NonAf (>60 ml/min/1.73 sqM) Glucose (74-99) mg/dL Plasma Lactic Acid Buster 1.3 (0.7-2.0) mmol/L Calcium (8.4-10.2) mg/dL Total Bilirubin (0.2-1.3) mg/dL AST (14-36) U/L ALT (4-34) U/L Alkaline Phosphatase (38-126) U/L Total Protein (6.3-8.2) g/dL Albumin (3.5-5.0) g/dL Urine Color Urine Appearance (Clear) Urine pH (5.0-8.0) Ur Specific [place] (1.001-1.035) Urine Protein (Negative) Urine Glucose (UA) (Negative) Urine Ketones (Negative) Urine Blood (Negative) Urine Nitrite (Negative) Urine Bilirubin (Negative) Urine Urobilinogen (<2.0) mg/dL Ur Leukocyte Esterase (Negative) Urine RBC (0-5) /hpf Urine WBC (0-5) /hpf Ur Squamous Epith Cells (0-4) /hpf Hyaline Casts (0-2) /lpf Urine Mucus (None) /hpf Influenza Type A (PCR) Not Detected (Not Detectd) Influenza Type B (PCR) Not Detected (Not Detectd) RSV (PCR) Not Detected (Not Detectd) SARS-CoV-2 (PCR) Not Detected (Not Detectd) Disposition Clinical Impression: Cellulitis, Abdominal wall fluid collections Disposition: ADMITTED IP TO THIS HOSP Condition: Fair Time of Disposition: 03:24
[2024-03-17 19:53] LABS: Appearance,Urine Clear (Clear); Bilirubin,Urine Negative (Negative); Blood,Urine Negative (Negative); Color,Urine Colorless; Glucose,Urine (UA) Negative (Negative); Hyaline Casts,Urine 1 /lpf (0-2); Ketones,Urine Negative (Negative); Leukocyte Esterase,Urine Small (Negative); Mucus,Urine Rare /hpf; Nitrite,Urine Negative (Negative); PH, Urine 6.5 (5.0-8.0); Protein,Urine Negative (Negative); RBC,Urine 1 /hpf (0-5); Specific Gravity,Urine 1.009 (1.001-1.035); Squamous Epithelial Cell,Urine 1 /hpf (0-4); Urobilinogen,Urine <2.0 mg/dL (<2.0); WBC,Urine 3 /hpf (0-5)
[2024-03-17] MEDS: MORPHINE SULFATE 4 MG/ML SYRINGE IVP STA (22:46)
[2024-03-17] MEDS: ONDANSETRON 4 MG/2 ML VIAL IVP STA (22:46)
[2024-03-17 22:54] LABS: Basophils # (A) 0.1 k/uL (0-0.2); Basophils % (A) 1 %; Eosinophils # (A) 0.3 k/uL (0-0.7); Eosinophils % (A) 4 %; HCT 44.4 % (34.0-46.0); HGB 14.3 gm/dL (11.4-16.0); Lymphocytes # (A) 2.3 k/uL (1.0-4.8); Lymphocytes % (A) 31 %; MCH 28.9 pg (25.0-35.0); MCHC 32.3 g/dL (31.0-37.0); MCV 89.5 fL (80.0-100.0); Mean Platelet Volume 9.6; Monocytes # (A) 0.5 k/uL (0-1.0); Monocytes % (A) 6 %; Neutrophils # (A) 3.9 k/uL (1.3-7.7); Neutrophils % (A) 54 %; Platelet Count 269 k/uL (150-450); RBC 4.96 m/uL (3.80-5.40); WBC 7.1 k/uL (3.8-10.6)
[2024-03-17 23:02] LABS: ALT 19 U/L (4-34); AST 33 U/L (14-36); African American GFR (CKD) >90 (>60 ml/min/1.73 sqM); Albumin 4.7 g/dL (3.5-5.0); Alkaline Phosphatase 69 U/L (38-126); Anion Gap 9 mmol/L; Blood Urea Nitrogen 15 mg/dL (7-17); Calcium 9.5 mg/dL (8.4-10.2); Carbon Dioxide 24 mmol/L (22-30); Chloride 107 mmol/L (98-107); Glucose 100 mg/dL (74-99); Non-African American GFR(CKD) 79 (>60 ml/min/1.73 sqM); Potassium 4.5 mmol/L (3.5-5.1); Sodium 140 mmol/L (137-145); Total Bilirubin 0.8 mg/dL (0.2-1.3); Total Protein 8.2 g/dL (6.3-8.2)
[2024-03-18] MEDS: KETOROLAC 15 MG/ML 1 ML VIAL IVP STA (00:38)
[2024-03-18] MEDS: Acetaminophen-Codeine 300-30mg TAB PO STA (01:33)
--- NOTE | 2024-03-18 01:36 | CT ---
EXAMINATION TYPE: CT abdomen pelvis w con CT DLP: 890.4 mGycm, Automated exposure control for dose reduction was used. 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 (01/13/24) history of failed lap band that turned septic. Was taking ciprofloxacin, then put on Bactrim, now on a 3rd ant ibiotic (unknown name) TECHNIQUE: Axial CT abdomen pelvis w con;Sagittal and coronal reformats were created on a separate w orkstation. Contrast used:100ml mL of Isovue 370 with IV Contrast, (none if empty) Oral contrast used: without Oral Contrast (none if empty) FINDINGS: LOWER CHEST: Unremarkable ABDOMEN LIVER: Unremarkable GALLBLADDER AND BILE DUCTS: Unremarkable. PANCREAS: Unremarkable. SPLEEN: Unremarkable. ADRENAL GLANDS: Unremarkable. KIDNEYS AND URETERS: No evidence for obstructive uropathy bilateral nonobstructing renal calculi aron uring 6 mm in the left and 2 mm in the right. PELVIS BLADDER: Unremarkable REPRODUCTIVE: Unremarkable. ABDOMEN & PELVIS STOMACH AND BOWEL: Small hiatal hernia. 1No evidence of bowel obstruction. PERITONEUM/RETROPERITONEUM: No evidence of pneumoperitoneum or free fluid. Gastric lap band is presen t with reservoir which appear intact. VASCULATURE: No evidence of aortic aneurysm. Bilateral common iliac vein stents are present. MUSCULOSKELETAL: No acute osseous abnormalities LYMPH NODES: No gross evidence for lymphadenopathy. SOFT TISSUE/ABDOMINAL WALL: There is a organizing fluid collection in the anterior subcutaneous tissu es of the lower abdomen measuring 9.3 x 1.6 x 11.1 cm. This is in the general location of the anterio r abdominal surgery mentioned in history. IMPRESSION: 1. Subcutaneous organizing fluid collection along the anterior abdominal wall suspicious for seroma versus less likely abscess versus hematoma. Correlate clinically, consider ultrasound evaluation. 2. Gastric lap band which appears in appropriate position. 3. Bilateral nonobstructing renal calculi. 4. Small hiatal hernia.
[2024-03-18] MEDS ORDERED: VANCOMYCIN IV PER PHARMACY 1 EACH MISC MISCELLANE PRN (02:53)
[2024-03-18] MEDS ORDERED: HYDROmorphone 1 MG/ML 1 ML SYRINGE IVP PRN (03:22)
[2024-03-18] MEDS ORDERED: NALOXONE 0.4 MG/ML 1 ML VIAL IV PRN (03:22)
[2024-03-18] MEDS: VANCOMYCIN 1,500 MG in SODIUM CHLORIDE 0.9% 500 ML 500 ML IVPB STA (03:57)
[2024-03-18] MEDS: SODIUM CHLORIDE 0.9% 1,000 ML IV SCH (03:58)
[2024-03-18] MEDS: ONDANSETRON 4 MG/2 ML VIAL IVP PRN (05:14)
[2024-03-18] MEDS: MORPHINE SULFATE 2 MG/ML SYRINGE IVP PRN (06:49)
[2024-03-18] MEDS: ACETAMINOPHEN TAB 325 MG TAB PO PRN (12:02)
--- NOTE | 2024-03-18 12:02 | P.CON ---
Consult Note - . Consult date: 03/18/24 Assessment/Plan:: This is a 64 year old female with history of a Tummy Tuck that presents with abdominal pain. She has a home care nurse that was concerned the wound was infected. She does have an opening in the wound and I did remove the packing. I did not note any purulent drainage. There was some clear serous fluid noted consistent with seroma. She had a CT-AP which showed a likely seroma. General-NAD Abdomen-soft, NTND, erythema and serous fluid noted draining from wound 64 year old female with abdominal wall cellulitis and underlying seroma - Regular Diet - Abx per primary - Recommend IR consult for possible drain placement - No acute surgical intervention Abdominal Pain HPI - General Source: patient (This is a 64 year old female with history of tummy tuck that presents with abdominal pain. She had a home nurse who has been doing dressing changes and noticed some purulent drainage. She has an open wound and there is some clear drainage at this time but no purulent fluid noted. ) Mode of arrival: ambulatory Limitations: no limitations - Related Data Home Medications Medication Instructions Recorded Confirmed Ezetimibe [Zetia] 10 mg PO HS 01/16/22 02/23/24 FLUoxetine HCL [PROzac] 20 mg PO BID 06/02/22 02/23/24 Famotidine [Pepcid] 20 mg PO DAILY PRN 06/02/22 02/23/24 Rosuvastatin [Crestor] 10 mg PO HS 06/02/22 02/23/24 Metoprolol Tartrate [Lopressor] 12.5 mg PO BID 08/01/22 02/23/24 dilTIAZem HCL [Cardizem CD] 120 mg PO DAILY 02/23/23 02/23/24 Allergies Allergy/AdvReac Type Severity Reaction Status Date / Time hydromorphone [From Dilaudid] Allergy Nausea & Verified 03/17/24 19:19 Vomiting Penicillins Allergy Anaphylaxis Verified 03/17/24 19:19
[2024-03-18] MEDS: HEPARIN SODIUM,PORCINE 5,000 UNIT/ML 1 ML VIAL SQ SCH (18:08)
[2024-03-18] MEDS: VANCOMYCIN 1,500 MG in SODIUM CHLORIDE 0.9% 500 ML 500 ML IVPB SCH (20:06)
--- NOTE | 2024-03-19 00:19 | P.HPIM ---
History of Present Illness H&P Date: 03/18/24 Chief Complaint: Wound infection Patient is a 64-year-old female with a past medical history of hypertension, hyperlipidemia, GERD, diverticulitis and prior history of smoking and history of tummy tuck surgery presents to ER with the complaints of abdominal pain. Patient does have chronic anterior abdominal wound and was seen by home care visiting nurse, concerned about wound infection. Otherwise patient denies any fever or chills. No purulent discharge from the wound. Patient states that previously she was on wound VAC. CT of the abdomen pelvis showed subcutaneous organizing fluid collection along the anterior abdominal wall suspicious for seroma versus less likely abscess versus hematoma. Correlate clinically consider ultrasound evaluation. Gastric lap band which appears in appropriate position. Bilateral nonobstructing renal calculi. Small hiatal hernia. Laboratory showed WBC 7.1 hemoglobin 14.3 and platelets 269 Sodium 140 potassium 4.5 chloride 107 bicarb is 24 BUN 15 and creatinine 0.79 and liver enzymes are not elevated. Urinalysis is negative for infection. Review of Systems Constitutional: Patient denies any fever or chills . No generalized weakness or weight loss. Abdomen: Patient denied nausea vomiting and diarrhea and abdominal pain. Cardiovascular: Patient denies any chest pain or short of breath no pa lpitations. Respiratory: patient denied any cough is from production. No shortness of breath Neurologic: Patient denied any numbness or tingling headache. Musculoskeletal: Patient denies any complaints of joint swelling or deformity. Skin: Negative Psychiatric: Negative Endocrine: No heat or cold intolerance. No recent weight gain. Genitourinary: No dysuria or hematuria. All other 14 point ROS negative except the above Past Medical History Past Medical History: GERD/Reflux, Hyperlipidemia, Hypertension Additional Past Medical History / Comment(s): DIVERICULITIS History of Any Multi-Drug Resistant Organisms: None Reported Past Surgical History: Bariatric Surgery, Bowel Resection, Breast Surgery Additional Past Surgical History / Comment(s): DIVERTICULITIS. Breast augmentation, tummy tuck 2020. x 2. lap band 2006,Port Removed F/U 09/08/22 Past Anesthesia/Blood Transfusion Reactions: No Reported Reaction Past Psychological History: No Psychological Hx Reported Smoking Status: Former smoker Past Alcohol Use History: Occasional Additional Past Alcohol Use History / Comment(s): smoked for 2 months 30 yrs ago Past Drug Use History: None Reported - Past Family History Daughter(s) Family Medical History: Cancer Additional Family Medical History / Comment(s): Breast cancer. Medications and Allergies Home Medications Medication Instructions Recorded Confirmed Type Famotidine [Pepcid] 20 mg PO DAILY 06/02/22 03/18/24 History Metoprolol Tartrate [Lopressor] 25 mg PO BID 08/01/22 03/18/24 History Cyclobenzaprine [Flexeril] 10 mg PO TID PRN 03/18/24 03/18/24 History HYDROcodone/APAP 7.5-325MG [[place] 1 tab PO QID PRN 03/18/24 03/18/24 History 7.5-325] Linezolid [Zyvox] 600 mg PO BID 03/18/24 03/18/24 History Tamsulosin [Flomax] 0.4 mg PO DIRECTED 03/18/24 03/18/24 History Allergies Allergy/AdvReac Type Severity Reaction Status Date / Time hydromorphone [From Dilaudid] Allergy Nausea & Verified 03/18/24 17:09 Vomiting Penicillins Allergy Anaphylaxis Verified 03/18/24 17:09 clindamycin AdvReac Nausea & Verified 03/18/24 17:09 Vomiting Physical Exam Vitals: Vital Signs Temp Pulse Pulse Resp BP BP Pulse Ox 03/18/24 07:31 98.9 F 73 15 123/73 96 03/18/24 05:47 97.5 F L 71 16 143/82 96 03/18/24 05:18 74 16 124/58 95 03/18/24 04:00 72 18 144/84 97 03/18/24 02:50 73 16 149/91 96 03/18/24 01:30 83 18 133/84 95 03/17/24 23:39 79 16 146/85 96 03/17/24 22:45 80 16 156/105 98 03/17/24 19:14 98.5 F 103 H 16 152/99 98 Intake and Output 03/17/24 03/18/24 03/18/24 22:59 06:59 14:59 Other: Weight 77.564 kg 77.564 kg PHYSICAL EXAMINATION: Patient is lying in the bed comfortably, no acute distress, awake alert and oriented.. HEENT: Normocephalic. Neck is supple. Pupils reactive. Nostrils clear. Oral cav ity is moist. Neck reveals no JVD, carotid bruits, or thyromegaly. CHEST EXAMINATION: Trachea is central. Symmetrical expansion. Lung francois clear to auscultation and percussion. CARDIAC: Normal S1, S2 with no gallops. No murmurs ABDOMEN: Soft. Bowel sounds present. Anterior abdominal wall open wound with surrounding redness. No discharge noted.. No organomegaly. No abdominal bruits. Extremities: reveal no edema. No clubbing or cyanosis Neurologically awake, alert, oriented x3 with well-coordinated movements. No focal deficits noted Skin: No rash or skin lesions. Psychiatric: Coperative. Nonsuicidal Musculoskeletal: No joint swelling or deformity. Normal range of motion. Results CBC & Chem 7: 03/17/24 22:47 03/17/24 22:47 Labs: Abnormal Lab Results - Last 24 Hours (Table) 03/17/24 03/17/24 Range/Units 19:24 22:47 Glucose 100 H (74-99) mg/dL Ur Leukocyte Esterase Small H (Negative) Urine Mucus Rare H (None) /hpf Thrombosis Risk Factor Assmnt - DVT/VTE Prophylaxis DVT/VTE Prophylaxis: Pharmacologic Prophylaxis ordered - Choose All That Apply Any of the Below Risk Factors Present?: Yes Each Factor Represents 1 point: History of prior major surgery (<1month), Obesity (BMI >25) Other Risk Factors: Yes Each Risk Factor Represents 2 Points: Age 61-74 years Other congenital or acquired thrombophilia - If yes, enter type in comment: No Thrombosis Risk Factor Assessment Total Risk Factor Score: 4 Thrombosis Risk Factor Assessment Level: Moderate Risk Assessment and Plan Assessment: Anterior abdominal wall cellulitis with underlying seroma History of surgery and chronic anterior abdominal wall with the prior wound VAC History of lap band surgery Hypertension Hyperlipidemia GERD History of diverticulitis DVT prophylaxis with heparin subcu Plan: Patient will be continued on gentle IV hydration. Continue with antibiotics in the form of vancomycin. Follow-up wound cultures and IR consult as per surgical recommendations for drain tube placement. Continue with pain management and continue home medications and follow-up closely.
[2024-03-19] MEDS: KETOROLAC 15 MG/ML 1 ML VIAL IVP PRN (03:04)
[2024-03-19 04:31] LABS: African American GFR (CKD) >90 (>60 ml/min/1.73 sqM); Anion Gap 4 mmol/L; Blood Urea Nitrogen 11 mg/dL (7-17); Calcium 8.9 mg/dL (8.4-10.2); Carbon Dioxide 25 mmol/L (22-30); Chloride 110 mmol/L (98-107); Glucose 100 mg/dL (74-99); Non-African American GFR(CKD) 89 (>60 ml/min/1.73 sqM); Potassium 4.1 mmol/L (3.5-5.1); Sodium 139 mmol/L (137-145)
[2024-03-19] MEDS: TAMSULOSIN 0.4 MG CAP.ER.24H PO SCH (08:36)
[2024-03-19] MEDS: FAMOTIDINE 20 MG TAB PO SCH (08:37)
[2024-03-19] MEDS: METOPROLOL TARTRATE 25 MG TAB PO SCH (08:37)
[2024-03-19 09:26] LABS: Basophils # (A) 0.08 X 10*3/uL (0.00-0.10); Basophils % (A) 1.6 %; Eosinophils # (A) 0.33 X 10*3/uL (0.04-0.35); Eosinophils % (A) 6.5 %; HCT 37.4 % (37.2-46.3); HGB 11.8 g/dL (12.0-15.0); Lymphocytes # (A) 1.88 X 10*3/uL (0.90-5.00); Lymphocytes % (A) 36.9 %; MCH 28.8 pg (27.0-32.0); MCHC 31.6 g/dL (32.0-37.0); MCV 91.2 FL (80.0-97.0); Mean Platelet Volume 11.8 FL (9.5-12.2); Monocytes % (A) 7.8 %; NRBC Per 100 WBC 0 X 10*3/uL (0.00-0.01); Platelet Count 225 X 10*3/uL (140-440); RDW 14.1 % (11.5-14.5)
--- NOTE | 2024-03-19 12:02 | P.PN ---
Subjective Progress Note Date: 03/19/24 Principal diagnosis: Infected abdominal wall fluid collection 64-year-old female known to our service. Patient underwent recent revision abdominoplasty outside of town. She was seen in the outpatient center a few weeks ago as she was having some drainage from her incision. She was asked to follow-up with her plastic surgeon. She was on antibiotics. She has tried a total of 3 different outpatient oral antibiotic regimens. Cultures recently showed MRSA. Came back to the hospital because of nausea, malaise, vague abdominal discomfort. CAT scan shows a fluid collection along the abdominal wall. There is some proximity to the patient's right upper quadrant Lap-Band p ort. Patient is not interested in following up with her plastic surgeon regarding this issue any longer. Objective - Vital Signs Vital signs: Vital Signs Temp 98.2 F 03/19/24 08:00 Pulse 74 03/19/24 08:00 Resp 16 03/19/24 08:00 BP 130/76 03/19/24 08:00 Pulse Ox 96 03/19/24 08:00 FiO2 Intake & Output 03/18/24 03/19/24 03/19/24 18:59 06:59 18:59 Output Total 5 Balance -5 Output: Urine 5 Other: Voiding Method Toilet # Voids 3 - Exam Abdomen: Soft, mild tenderness, midline incision with 1 x 1 cm area of dehiscence, small amount of serosanguineous drainage - Labs CBC & Chem 7: 03/19/24 03:44 03/19/24 03:44 Labs: Abnormal Lab Results - Last 24 Hours (Table) 03/19/24 03/19/24 Range/Units 03:44 03:44 Hgb 11.8 L (12.0-15.0) g/dL MCHC 31.6 L (32.0-37.0) g/dL Chloride 110 H (98-107) mmol/L Glucose 100 H (74-99) mg/dL Microbiology - Last 24 Hours (Table) 03/17/24 22:50 Blood Culture - Preliminary Blood 03/17/24 22:35 Blood Culture - Preliminary Blood Assessment and Plan (1) Abdominal wall abscess Narrative/Plan: 64-year-old female with abdominal wall infected seroma. Patient had somewhat similar issue 2 years ago and at that time the patient's Lap-Band port was involved in the abscess cavity. Patient is very interested in undergoing surgical drainage at this point since she did so well and healed so quickly last time. She is not interested in any percutaneous attempts at draining the seroma at this time. She is not interested in following up with her plastic surgery team at this time. After long discussion we have decided to proceed with incision and drainage infected abdominal wall fluid collection tomorrow. Risks of bleeding, infection, poor healing, possible need for Lap-Band port removal once again discussed with patient at length. She would like to proceed. Current Visit: No Status: Acute Code(s): L02.211 - CUTANEOUS ABSCESS OF ABDOMINAL WALL SNOMED Code(s): 37370887
[2024-03-19] MEDS: HYDROcodone/APAP 5-325MG 1 EACH TAB PO PRN (15:32)
[2024-03-19] MEDS: polyethylene glycoL 3350 17 GM POWD.PACK PO SCH (15:37)
--- NOTE | 2024-03-19 22:01 | P.CONS ---
History of Present Illness - Reason for Consult Consult date: 03/19/24 MRSA Requesting physician: Serjio Finney - Chief Complaint Abdominal pain and drainage x few days - History of Present Illness Patient is a 64-year-old female with a past medical history significant for hypertension hyperlipidemia reflux did have a history of in fected leg pain port that was subsequent discontinued September 2022 patient did have a revision abdominoplasty, subsequently has developed drainage from the lower incision and has been dealing with a nonhealing wound to the lower abdominal area and has been following with her plastic surgeon and apparently has been on different types of oral antibiotics over the last 6 weeks including Bactrim clindamycin patient presenting to [facility] ER 2 nights ago for evaluation of nausea and headache and apparently the patient noticed to have worsening drainage from her lower abdominal wound patient also complaining of abdominal discomfort dull aching to sharp moderate intensity without any ra diation patient denies high-grade fever did have some chills no headache or URI symptoms no chest pain shortness of breath or cough some nausea but no vomiting or diarrhea patient on presentation to the hospital was afebrile and no fever have been recorded subsequently patient was not tachycardic hypotensive or hypoxic did have a white count of 7.1 creatinine 0.7 and electrolytes are normal liver enzymes are normal urine has been negative influenza RSV COVID testing negative patient did have abdominal pelvis CT subcutaneous organizing fluid collection along the anterior abdominal wall suspicious for seroma versus abscess versus hematoma patient has been eval by general surgery and planning f or drainage of this abscess/infected hematoma in the OR tomorrow apparently recent outpatient culture positive for MRSA to which I do not have any access at this point and the patient currently on empiric vancomycin Review of Systems Positive point and negatives has been mentioned in the HPI, complete review of systems was performed and all other systems are negative Past Medical History Past Medical History: GERD/Reflux, Hyperlipidemia, Hypertension Additional Past Medical History / Comment(s): DIVERICULITIS History of Any Multi-Drug Resistant Organisms: None Reported Past Surgical History: Bariatric Surgery, Bowel Resection, Breast Surgery Additional Past Surgical History / Comment(s): DIVERTICULITIS. Breast augmentation, tummy tuck 2020. x 2. lap band 2006,Port Removed F/U 09/08/22 Past Anesthesia/Blood Transfusion Reactions: No Reported Reaction Past Psychological History: Anxiety Smoking Status: Former smoker Past Alcohol Use History: Occasional Additional Past Alcohol Use History / Comment(s): smoked for 2 months 30 yrs ago Past Drug Use History: None Reported - Past Family History Daughter(s) Family Medical History: Cancer Additional Family Medical History / Comment(s): Breast cancer. Medications and Allergies Home Medications Medication Instructions Recorded Confirmed Type Famotidine [Pepcid] 20 mg PO DAILY 06/02/22 03/18/24 History Metoprolol Tartrate [Lopressor] 25 mg PO BID 08/01/22 03/18/24 History Cyclobenzaprine [Flexeril] 10 mg PO TID PRN 03/18/24 03/18/24 History Tamsulosin [Flomax] 0.4 mg PO DIRECTED 03/18/24 03/18/24 History HYDROcodone/APAP 7.5-325MG [[place] 1 tab PO QID PRN 3 Days #12 tab 03/23/24 Rx 7.5-325] Sennosides [Senokot] 8.6 mg PO DAILY PRN #20 tab 03/23/24 Rx Ondansetron Odt [Zofran Odt] 4 mg PO Q8HR PRN #20 tab 03/24/24 Rx Allergies Allergy/AdvReac Type Severity Reaction Status Date / Time hydromorphone [From Dilaudid] Allergy Nausea & Verified 03/20/24 13:54 Vomiting Penicillins Allergy Anaphylaxis Verified 03/20/24 13:54 clindamycin AdvReac Nausea & Verified 03/20/24 13:54 Vomiting Physical Exam Vitals: Vital Signs Temp Pulse Resp BP Pulse Ox 03/19/24 13:00 98.7 F 73 16 153/94 98 03/19/24 08:00 98.2 F 74 16 130/76 96 03/19/24 02:00 98.5 F 74 141/88 97 03/18/24 20:00 98.0 F 75 146/81 97 03/18/24 14:00 98.7 F 87 16 147/87 93 L Intake and Output 03/18/24 03/19/24 03/19/24 22:59 06:59 14:59 Output Total 5 Balance -5 Output: Urine 5 Other: Voiding Method Toilet # Voids 3 GENERAL DESCRIPTION: Elderly female lying in bed, no distress. No tachypnea or accessory muscle of respiration use. HEENT: Shows Pallor , no scleral icterus. Oral mucous membrane is dry. No pharyngeal erythema or thrush NECK: Trachea central, no thyromegaly. LUNGS: Unlabored breathing. Clear to auscultation anteriorly. No wheeze or crackle. HEART: S1, S2, regular rate and rhythm. No loud murmur ABDOMEN: Soft, lower abdominal wound with minimal drainage EXTREMITIES: No edema of feet. SKIN: No rash, no masses palpable. NEUROLOGICAL: The patient is awake, alert, oriented x3, mood and affect normal. Results CBC & Chem 7: 03/27/24 04:20 03/28/24 04:24 Labs: Abnormal Lab Results - Last 24 Hours (Table) 03/19/24 03/19/24 Range/Units 03:44 03:44 Hgb 11.8 L (12.0-15.0) g/dL MCHC 31.6 L (32.0-37.0) g/dL Chloride 110 H (98-107) mmol/L Glucose 100 H (74-99) mg/dL Microbiology - Last 24 Hours (Table) 03/17/24 22:50 Blood Culture - Preliminary Blood 03/17/24 22:35 Blood Culture - Preliminary Blood Assessment and Plan (1) Penicillin allergy Status: Acute Code(s): Z88.0 - ALLERGY STATUS TO PENICILLIN SNOMED Code(s): 40486418 (2) Abdominal wall abscess Status: Acute Code(s): L02.211 - CUTANEOUS ABSCESS OF ABDOMINAL WALL SNOMED Code(s): 72882052 Plan: 1patient presented to hospital with nonhealing lower abdominal wound and drainage and this patient has been on multiple oral antibiotic in outpatient setting now with more drainage and have evidence of fluid collection on the CT possibly concerning for infected seroma/abscess with outpatient culture positive for MRSA. 2we will try to obtain outpatient cultures. 3await surgical drainage of this infected seroma fluid should be sent for the culture. 4vancomycin pharmacy to dose target trough of 15 while watching kidney f unction and Vanco trough closely. We will follow on clinical condition and cultures to further adjust medication if needed Thank you for this consultation we will follow the patient along with you Dictation was produced using [employer]mi dictation software. please excuse any grammatical, word or spelling errors. Time with Patient: Greater than 30
[2024-03-20] MEDS: LACTATED RINGERS 1,000 ML IV ONE (13:52)
[2024-03-20] MEDS: ONDANSETRON 4 MG/2 ML VIAL IVP ONE (14:22)
[2024-03-20] MEDS: DEXAMETHASONE SOD PHOSPHATE 4 MG/ML 1 ML VIAL IVP ONE (14:22)
[2024-03-20] MEDS: MIDAZOLAM 2 MG/2 ML VIAL IVP ONE (14:23)
[2024-03-20] MEDS: FAMOTIDINE 20 MG/2 ML VIAL IVP ONE (14:23)
[2024-03-20] MEDS ORDERED: PHENYLEPHRINE 10 MG/ML VIAL ONE (15:01)
[2024-03-20] MEDS ORDERED: GLYCOPYRROLATE 0.2 MG/ML 2 ML VIAL ONE (15:01)
[2024-03-20] MEDS ORDERED: LIDOCAINE 1% INJ 10MG/ML (20 ML MDV) ONE (15:01)
[2024-03-20] MEDS ORDERED: NEOSTIGMINE 1 MG/ML 10 ML VIAL ONE (15:01)
[2024-03-20] MEDS ORDERED: PROPOFOL 10 MG/ML 20 ML VIAL IV ONE (15:01)
[2024-03-20] MEDS ORDERED: MIDAZOLAM 2 MG/2 ML VIAL ONE (15:01)
[2024-03-20] MEDS ORDERED: ROCURONIUM 10 MG/ML (5 ML VIAL) IV ONE (15:01)
[2024-03-20] MEDS ORDERED: SUCCINYLCHOLINE CHLORIDE 200 MG/10 ML VIAL IV ONE (15:01)
[2024-03-20] MEDS ORDERED: fentaNYL (PF) 50 MCG/ML 2 ML AMP ONE (15:01)
--- NOTE | 2024-03-20 16:01 | P.OP ---
Date of Procedure: 03/20/24 Procedure(s) Performed: PREOPERATIVE DIAGNOSIS: Infected abdominal wall seroma POSTOPERATIVE DIAGNOSIS: Same PROCEDURE: Incision and drainage infected abdominal wall seroma SURGEON: Sharmin SHARMAL: 5 cc ANESTHESIA: General COMPLICATIONS: None OPERATIVE PROCEDURE: Patient placed in the operating table in the supine position. The patient's abdomen was prepped and draped sterilely. The patient had 2 wounds 1 at the junction between her transverse and midline incision in the suprapubic location and a second approximately 10 cm superior to that. Incision was made between these 2 opening her midline incision once again. Entrance into a seroma cavity took place. There was some exudate within the seroma. There is also some loculations present. The loculations were broken apart. The wound was noted to track laterally right greater than left beneath the Pfannenstiel incision. Width of the wound inferiorly was 12 cm. As we went superiorly the wound was narrower. Unfortunately it was quite long measuring 16 to 17 cm in length. There was no tracking laterally as we went higher on the abdomen. I could not visualize or palpate the patient's Lap-Band port. The area was irrigated with saline. The wound was then packed with lightly moistened Kerlix roll. Sterile dressings applied. DISPOSITION: Stable to recovery room
[2024-03-20] MEDS: VANCOMYCIN TROUGH DUE 1 EACH MISC MISCELLANE ONE (20:45)
[2024-03-20] MEDS: CYCLOBENZAPRINE 10 MG TAB PO PRN (21:16)
[2024-03-21] MEDS: VANCOMYCIN 1,500 MG in SODIUM CHLORIDE 0.9% 500 ML 500 ML IVPB SCH (07:59)
[2024-03-21 08:59] LABS: BUN/Creat Ratio 22.71 Ratio (12.00-20.00); Blood Urea Nitrogen 15.9 mg/dL (9.0-27.0); Calcium 8.9 mg/dL (8.7-10.3); Carbon Dioxide 23.6 mmol/L (21.6-31.8); Chloride 106 mmol/L (96-109); Glucose 137 mg/dL (70-110); Potassium 4.1 mmol/L (3.5-5.5); Sodium 139 mmol/L (135-145)
[2024-03-21 09:34] LABS: Basophils # (A) 0.04 X 10*3/uL (0.00-0.10); Basophils % (A) 0.5 %; Eosinophils # (A) 0.59 X 10*3/uL (0.04-0.35); Eosinophils % (A) 7.1 %; HCT 34.1 % (37.2-46.3); HGB 11.2 g/dL (12.0-15.0); Lymphocytes # (A) 0.95 X 10*3/uL (0.90-5.00); Lymphocytes % (A) 11.5 %; MCHC 32.8 g/dL (32.0-37.0); MCV 88.3 FL (80.0-97.0); Monocytes # (A) 0.31 X 10*3/uL (0.20-1.00); Monocytes % (A) 3.7 %; NRBC Per 100 WBC 0 X 10*3/uL (0.00-0.01); Neutrophils # (A) 6.36 X 10*3/uL (1.80-7.70); Platelet Count 214 X 10*3/uL (140-440); RBC 3.86 X 10*6/uL (4.10-5.20); RDW 13.8 % (11.5-14.5); WBC 8.27 X 10*3/uL (4.50-10.00)
--- NOTE | 2024-03-21 14:51 | P.PN ---
Subjective Progress Note Date: 03/20/24 Principal diagnosis: Reason for follow-up is infected abdominal wall seroma Patient is a 64-year-old female with a past medical history significant for hypertension hyperlipidemia reflux did have a history of infected leg pain port that was subsequent discontinued September 2022 patient did have a revision abdominoplasty, subsequently has developed drainage from the lower incision and has been dealing with a nonhealing wound to the lower abdominal area with outpatient culture positive for MRSA admitted to hospital worsening drainage did have abnormal CT suspicious for seroma versus abscess. On today's evaluation that is 03/20/2024,the patient remains to be afebrile, patient is on room air not requiring supplemental oxygen and denies any shortness of breath no chest pain or cough.Patient denies having any nausea or vomiting, denies any worsening abdominal pain or drainage currently waiting for surgery. No new labs were obtained today except vancomycin trough of 11.7 Objective - Vital Signs Vital signs: Vital Signs Temp 97.6 F 03/20/24 07:43 Pulse 71 03/20/24 07:43 Resp 18 03/20/24 08:16 BP 149/96 03/20/24 07:43 Pulse Ox 98 03/20/24 07:43 FiO2 Intake & Output 03/19/24 03/20/24 03/20/24 18:59 06:59 18:59 Intake Total 240 Balance 240 Intake: Oral 240 Other: Voiding Method Toilet Toilet # Voids 2 4 - Exam GENERAL DESCRIPTION: An elderly female lying in bed in no distress RESPIRATORY SYSTEM: Unlabored breathing , decreased breath sounds at bases HEART: S1 S2 regular rate and rhythm , ABDOMEN: Soft , lower abdominal wound is dressed EXTREMITIES: No edema feet - Labs CBC & Chem 7: 03/21/24 04:13 03/21/24 04:13 Labs: Microbiology - Last 24 Hours (Table) 03/17/24 22:50 Blood Culture - Preliminary Blood 03/17/24 22:35 Blood Culture - Preliminary Blood Assessment and Plan (1) Abdominal wall fluid collections Current Visit: Yes Status: Acute Code(s): R18.8 - OTHER ASCITES SNOMED Code(s): 877122200 (2) Abdominal wall abscess Current Visit: No Status: Acute Code(s): L02.211 - CUTANEOUS ABSCESS OF ABDOMINAL WALL SNOMED Code(s): 09634492 Plan: 1patient presented to hospital with nonhealing lower abdominal wound and drainage and this patient has been on multiple oral antibiotic in outpatient s etting now with more drainage and have evidence of fluid collection on the CT possibly concerning for infected seroma/abscess with outpatient culture positive for MRSA. 2patient is waiting for I&D and drainage of this infected seroma culture will be obtained 3patient to continue vancomycin pharmacy to dose target trough of 15 while watching kidney function and Vanco trough closely. Dictation was produced using [employer] dictation software. please excuse any grammatical, word or spelling errors. Time with Patient: Less than 30
--- NOTE | 2024-03-21 14:52 | P.PN ---
Subjective Progress Note Date: 03/21/24 Principal diagnosis: Reason for follow-up is infected abdominal wall seroma Patient is a 64-year-old female with a past medical history significant for hypertension hyperlipidemia reflux did have a history of infected leg pain port that was subsequent discontinued September 2022 patient did have a revision abdominoplasty, subsequently has developed drainage from the lower incision and has been dealing with a nonhealing wound to the lower abdominal area with outpatient culture positive for MRSA admitted to hospital worsening drainage did have abnormal CT suspicious for seroma versus abscess.Patient is status post I&D of infected abdominal wall seroma complicated on 03/20/2024. On today's evaluation that is 03/21/2024, the patient continues to be afebrile, the patient is on room air and breathing comfortably, the Pt denies having any chest pain or cough, the patient denies any worsening abdominal pain no vomiting or any diarrhea has been reported by the nursing staff. Patient white count is 8.27, creatinine 0.7 cultures currently pending Objective - Vital Signs Vital signs: Vital Signs Temp 97.8 F 03/21/24 07:30 Pulse 59 L 03/21/24 07:30 Resp 16 03/21/24 07:30 BP 96/60 03/21/24 07:30 Pulse Ox 93 L 03/21/24 07:30 FiO2 Intake & Output 03/20/24 03/21/24 03/21/24 18:59 06:59 18:59 Intake Total 700 100 Output Total 10 Balance 690 100 Intake: IV 700 Oral 100 Output: Estimated Blood Loss 10 Other: Voiding Method Toilet Toilet Toilet # Voids 1 4 2 - Exam GENERAL DESCRIPTION: An elderly female lying in bed in no distress RESPIRATORY SYSTEM: Unlabored breathing , decreased breath sounds at bases HEART: S1 S2 regular rate and rhythm , ABDOMEN: Soft , lower abdominal wound is dressed EXTREMITIES: No edema feet - Labs CBC & Chem 7: 03/21/24 04:13 03/21/24 04:13 Labs: Abnormal Lab Results - Last 24 Hours (Table) 03/21/24 03/21/24 Range/Units 04:13 04:13 RBC 3.86 L (4.10-5.20) X 10*6/uL Hgb 11.2 L (12.0-15.0) g/dL Hct 34.1 L (37.2-46.3) % Eosinophils # 0.59 H (0.04-0.35) X 10*3/uL BUN/Creatinine Ratio 22.71 H (12.00-20.00) Ratio Glucose 137 H (70-110) mg/dL Microbiology - Last 24 Hours (Table) 03/17/24 22:50 Blood Culture - Preliminary Blood 03/17/24 22:35 Blood Culture - Preliminary Blood 03/18/24 18:00 Gram Stain - Preliminary Abdomen Assessment and Plan (1) Abdominal wall fluid collections Current Visit: Yes Status: Acute Code(s): R18.8 - OTHER ASCITES SNOMED C ode(s): 087578804 (2) Abdominal wall abscess Current Visit: No Status: Acute Code(s): L02.211 - CUTANEOUS ABSCESS OF ABDOMINAL WALL SNOMED Code(s): 61849895 (3) Allergy to multiple antibiotics Current Visit: Yes Status: Acute Code(s): Z88.1 - ALLERGY STATUS TO OTHER ANTIBIOTIC AGENTS SNOMED Code(s): 843299492 Plan: 1patient presented to hospital with nonhealing lower abdominal wound and drainage and this patient has been on multiple oral antibiotic in outpatient setting now with more drainage and have evidence of fluid collection on the CT possibly concerning for infected seroma/abscess with outpatient culture positive for MRSA. 2patient is s/p r I&D and drainage of this infected seroma, cultures obtained which are currently pending 3patient to continue vancomycin pharmacy to dose target trough of 15 while waiting for the culture to finalize determine discharge antibiotics may need IV antibiotics on discharge Dictation was produced using [employer] dictation software. please excuse any grammatical, word or spelling errors. Time with Patient: Less than 30
--- NOTE | 2024-03-21 16:29 | P.PN ---
Subjective Progress Note Date: 03/21/24 CHIEF COMPLAINT: Infected abdominal wall seroma HISTORY OF PRESENT ILLNESS: Patient is postop day #1 status post incision and drainage of infected abdominal wall seroma. Her dressing was saturated with se rosanguineous drainage. Her pain is controlled. She is upset that she cannot get to her granddaughter's graduation ceremony. Afebrile. Mildly tachycardic heart rate 104. WBC 8.27 hemoglobin 11.2 platelets 214 PHYSICAL EXAM: VITAL SIGNS: Reviewed. GENERAL: Well-developed in no acute distress. ABDOMEN: Soft. Nondistended. Abdominal incision site with packing packing has serosanguineous drainage. No erythema noted along the edges of the wound. NEUROLOGIC: Alert and oriented. Cranial nerves II through XII grossly intact. ASSESSMENT: 1. Infected abdominal wall seroma status post incision and drainage PLAN: -Change packing today -Planning to place wound VAC starting tomorrow -Continue antibiotics -Follow-up on culture results -Continue pain management -DVT prophylaxis subcu heparin [employer] note has been reviewed by physician. Signing provider agrees with the documented findings, assessment, and plan of care. Objective - Vital Signs Vital signs: Vital Signs Temp 98.1 F 03/21/24 14:50 Pulse 104 H 03/21/24 14:50 Resp 17 03/21/24 14:50 BP 169/81 03/21/24 14:50 Pulse Ox 100 03/21/24 14:50 FiO2 Intake & Output 03/20/24 03/21/24 03/21/24 18:59 06:59 18:59 Intake Total 700 210 Output Total 10 Balance 690 210 Intake: IV 700 10 Invasive Line 6 10 Oral 200 Output: Estimated Blood Loss 10 Other: Voiding Method Toilet Toilet Toilet # Voids 1 4 2 - Labs CBC & Chem 7: 03/21/24 04:13 03/21/24 04:13 Labs: Abnormal Lab Results - Last 24 Hours (Table) 03/21/24 03/21/24 Range/Units 04:13 04:13 RBC 3.86 L (4.10-5.20) X 10*6/uL Hgb 11.2 L (12.0-15.0) g/dL Hct 34.1 L (37.2-46.3) % Eosinophils # 0.59 H (0.04-0.35) X 10*3/uL BUN/Creatinine Ratio 22.71 H (12.00-20.00) Ratio Glucose 137 H (70-110) mg/dL Microbiology - Last 24 Hours (Table) 03/20/24 15:37 Gram Stain - Preliminary Abdomen 03/17/24 22:50 Blood Culture - Preliminary Blood 03/17/24 22:35 Blood Culture - Preliminary Blood 03/18/24 18:00 Gram Stain - Preliminary Abdomen
--- NOTE | 2024-03-21 23:42 | P.PN ---
Subjective Progress Note Date: 03/19/24 Patient is a 64-year-old female with a past medical history of hypertension, hyperlipidemia, GERD, diverticulitis and prior history of smoking and history of tummy tuck surgery presents to ER with the complaints of abdominal pain. Patient does have chronic anterior abdominal wound and was seen by home care visiting nurse, concerned about wound infection. Otherwise patient denies any fever or chills. No purulent discharge from the wound. Patient states that previously she was on wound VAC. CT of the abdomen pelvis showed subcutaneous organizing fluid collection along the anterior abdominal wall suspicious for seroma versus less likely abscess versus hematoma. Correlate clinically consider ultrasound evaluation. Gastric lap band which appears in appropriate position. Bilateral nonobstructing renal calculi. Small hiatal hernia. Laboratory showed WBC 7.1 hemoglobin 14.3 and platelets 269 Sodium 140 potassium 4.5 chloride 107 bicarb is 24 BUN 15 and creatinine 0.79 and liver enzymes are not elevated. Urinalysis is negative for infection. 03/19/2024 Patient is resting in the bed. Awake alert and oriented x 3. Complains of constipation. Able to tolerate oral diet. Denies any complaints of nausea or vomiting. Patient was seen by general surgery and is planning for or tomorrow. Orders continued on antibiotics involves vancomycin. Laboratory data showed WBC 5.1 hemoglobin 11.8 and platelets 225 sodium 139 potassium 4.1 chloride 110 bicarb is 25 BUN 11 and creatinine 0.71 and blood sugar 100. ID and general surgery is on board. Objective - Vital Signs Vital signs: Vital Signs Temp 99.1 F 03/19/24 18:22 Pulse 83 03/19/24 18:22 Resp 16 03/19/24 18:22 BP 122/70 03/19/24 18:22 Pulse Ox 97 03/19/24 18:22 FiO2 Intake & Output 03/19/24 03/19/24 03/20/24 06:59 18:59 06:59 Output Total 5 Balance -5 Output: Urine 5 Other: Voiding Method Toilet # Voids 2 - Exam PHYSICAL EXAMINATION: Patient is lying in the bed comfortably, no acute distress, awake alert and oriented.. HEENT: Normocephalic. Neck is supple. Pupils reactive. Nostrils clear. Oral cavity is moist. Neck reveals no JVD, carotid bruits, or thyromegaly. CHEST EXAMINATION: Trachea is central. Symmetrical expansion. Lung francois clear to auscultation and percussion. CARDIAC: Normal S1, S2 with no gallops. No murmurs ABDOMEN: Soft. Bowel sounds present. Anterior abdominal wall open wound with surrounding redness. No discharge noted.. No organomegaly. No abdominal bruits. Extremities: reveal no edema. No clubbing or cyanosis Neurologically awake, alert, oriented x3 with well-coordinated movements. No focal deficits noted Skin: No rash or skin lesions. Psychiatric: Coperative. Nonsuicidal Musculoskeletal: No joint swelling or deformity. Normal range of motion. - Labs CBC & Chem 7: 03/21/24 04:13 03/21/24 04:13 Labs: Abnormal Lab Results - Last 24 Hours (Table) 03/19/24 03/19/24 Range/Units 03:44 03:44 Hgb 11.8 L (12.0-15.0) g/dL MCHC 31.6 L (32.0-37.0) g/dL Chloride 110 H (98-107) mmol/L Glucose 100 H (74-99) mg/dL Microbiology - Last 24 Hours (Table) 03/17/24 22:50 Blood Culture - Preliminary Blood 03/17/24 22:35 Blood Culture - Preliminary Blood Assessment and Plan Assessment: Anterior abdominal wall cellulitis with underlying elevated seroma/abscess. Patient had abdominoplasty recently and also on 3 antibiotic courses as an outpatient. History of surgery and chronic anterior abdominal wall with the prior wound VAC History of lap band surgery Hypertension Hyperlipidemia GERD History of diverticulitis DVT prophylaxis with heparin subcu Plan: Patient will be continued on gentle IV hydration. Continue with antibiotics in the form of vancomycin. Patient would like to proceed with the OR by general surgery.. Continue symptomatic management. Continue with pain management and continue home medications and follow-up closely.
--- NOTE | 2024-03-21 23:44 | P.PN ---
Subjective Progress Note Date: 03/20/24 Patient is a 64-year-old female with a past medical history of hypertension, hyperlipidemia, GERD, diverticulitis and prior history of smoking and history of tummy tuck surgery presents to ER with the complaints of abdominal pain. Patient does have chronic anterior abdominal wound and was seen by home care visiting nurse, concerned about wound infection. Otherwise patient denies any fever or chills. No purulent discharge from the wound. Patient states that previously she was on wound VAC. CT of the abdomen pelvis showed subcutaneous organizing fluid collection along the anterior abdominal wall suspicious for seroma versus less likely abscess versus hematoma. Correlate clinically consider ultrasound evaluation. Gastric lap band which appears in appropriate position. Bilateral nonobstructing renal calculi. Small hiatal hernia. Laboratory showed WBC 7.1 hemoglobin 14.3 and platelets 269 Sodium 140 potassium 4.5 chloride 107 bicarb is 24 BUN 15 and creatinine 0.79 and liver enzymes are not elevated. Urinalysis is negative for infection. 03/19/2024 Patient is resting in the bed. Awake alert and oriented x 3. Complains of constipation. Able to tolerate oral diet. Denies any complaints of nausea or vomiting. Patient was seen by general surgery and is planning for or tomorrow. Orders continued on antibiotics involves vancomycin. Laboratory data showed WBC 5.1 hemoglobin 11.8 and platelets 225 sodium 139 potassium 4.1 chloride 110 bicarb is 25 BUN 11 and creatinine 0.71 and blood sugar 100. ID and general surgery is on board. 03/20/2024 Patient is status post incision and drainage of the abdominal wall seroma. Postoperative day 0. Pain is fairly controlled. Patient is manubrial. No nausea vomiting or diarrhea. Tolerating liquids. No cough or sputum production. No chest pain or shortness of breath. Patient will be continued on vancomycin. ID is on board. Laboratory data reviewed. Objective - Vital Signs Vital signs: Vital Signs Temp 98.2 F 03/20/24 20:08 Pulse 71 03/20/24 20:08 Resp 18 03/20/24 20:08 BP 117/72 03/20/24 20:08 Pulse Ox 96 03/20/24 20:08 FiO2 Intake & Output 03/20/24 03/20/24 03/21/24 06:59 18:59 06:59 Intake Total 240 700 Output Total 10 Balance 240 690 Intake: IV 700 Oral 240 Output: Estimated Blood Loss 10 Other: Voiding Method Toilet Toilet # Voids 4 1 - Exam PHYSICAL EXAMINATION: Patient is lying in the bed comfortably, no acute distress, awake alert and oriented.. HEENT: Normocephalic. Neck is supple. Pupils reactive. Nostrils clear. Oral cavity is moist. Neck reveals no JVD, carotid bruits, or thyromegaly. CHEST EXAMINATION: Trachea is central. Symmetrical expansion. Lung francois clear to auscultation and percussion. CARDIAC: Normal S1, S2 with no gallops. No murmurs ABDOMEN: Soft. Bowel sounds present. Anterior abdominal wall surgical site is bandaged... No organomegaly. No abdominal bruits. Extremities: reveal no edema. No clubbing or cyanosis Neurologically awake, alert, oriented x3 with well-coordinated movements. No focal deficits noted Skin: No rash or skin lesions. Psychiatric: Coperative. Nonsuicidal Musculoskeletal: No joint swelling or deformity. Normal range of motion. - Labs CBC & Chem 7: 03/21/24 04:13 03/21/24 04:13 Labs: Microbiology - Last 24 Hours (Table) 03/18/24 18:00 Gram Stain - Preliminary Abdomen 03/17/24 22:50 Blood Culture - Preliminary Blood 03/17/24 22:35 Blood Culture - Preliminary Blood Assessment and Plan Assessment: Anterior abdominal wall cellulitis with underlying elevated seroma/abscess. Patient had abdominoplasty recently and also on 3 antibiotic courses as an outpatient. Status post I&D History of surgery and chronic anterior abdominal wall with the prior wound VAC History of lap band surgery Hypertension Hyperlipidemia GERD History of diverticulitis DVT prophylaxis with heparin subcu Plan: Patient will be continued on gentle IV hydration. Continue with antibiotics in the form of vancomycin. Status post I&D by general surgery. Follow-up culture reports... Continue symptomatic management. Continue with pain management and continue home medications and follow-up closely.
[2024-03-22 05:42] LABS: African American GFR (CKD) >90 (>60 ml/min/1.73 sqM); Non-African American GFR(CKD) >90 (>60 ml/min/1.73 sqM)
--- NOTE | 2024-03-22 15:07 | P.PN ---
Subjective Progress Note Date: 03/22/24 CHIEF COMPLAINT: Infected abdominal wall seroma HISTORY OF PRESENT ILLNESS: Patient is postop day #2 status post incision and drainage of infected abdominal wall seroma. Patient reports her pain is contro lled. She did have some nausea earlier. Her packing was changed yesterday. Afebrile. Culture growing MRSA PHYSICAL EXAM: VITAL SIGNS: Reviewed. GENERAL: Well-developed in no acute distress. ABDOMEN: Soft. Nondistended. Abdominal incision site with packing has serosanguineous drainage. No erythema noted along the edges of the wound. NEUROLOGIC: Alert and oriented. Cranial nerves II through XII grossly intact. ASSESSMENT: 1. Infected abdominal wall seroma status post incision and drainage PLAN: -Change packing today -Possible wound VAC placement tomorrow -Continue antibiotics -Patient scheduled for PICC line placement for IV antibiotics -Continue pain management -DVT prophylaxis subcu heparin [employer] note has been reviewed by physician. Signing provider agrees with the documented findings, assessment, and plan of care. Objective - Vital Signs Vital signs: Vital Signs Temp 98.1 F 03/22/24 13:59 Pulse 67 03/22/24 13:59 Resp 19 03/22/24 13:59 BP 131/73 03/22/24 13:59 Pulse Ox 97 03/22/24 13:59 FiO2 Intake & Output 03/21/24 03/22/24 03/22/24 18:59 06:59 18:59 Intake Total 210 Balance 210 Intake: IV 10 Invasive Line 6 10 Oral 200 Other: Voiding Method Toilet Toilet Toilet # Voids 2 2 - Labs CBC & Chem 7: 03/21/24 04:13 03/22/24 04:08 Labs: Microbiology - Last 24 Hours (Table) 03/18/24 18:00 Gram Stain - Final Abdomen Wound Culture - Final Methicillin resist S. aureus 03/20/24 15:37 Gram Stain - Preliminary Abdomen
--- NOTE | 2024-03-22 15:51 | XR ---
EXAMINATION TYPE: XR chest 1V portable DATE OF EXAM: 03/22/2024 COMPARISON: 08/01/2022 INDICATION: PICC line placement TECHNIQUE: Single frontal view of the chest is obtained. FINDINGS: The heart size is normal. The pulmonary vasculature is normal. The lungs are clear. PICC line is in place with tip in the superior vena cava region. IMPRESSION: 1. No acute pulmonary process. 2. PICC line tip within the superior vena cava region.
[2024-03-23] MEDS: VANCOMYCIN TROUGH DUE 1 EACH MISC MISCELLANE ONE (06:21)
[2024-03-23 07:00] LABS: African American GFR (CKD) >90 (>60 ml/min/1.73 sqM); Non-African American GFR(CKD) >90 (>60 ml/min/1.73 sqM)
--- NOTE | 2024-03-23 12:47 | P.PN ---
Subjective Progress Note Date: 03/21/24 Patient is a 64-year-old female with a past medical history of hypertension, hyperlipidemia, GERD, diverticulitis and prior history of smoking and history of tummy tuck surgery presents to ER with the complaints of abdominal pain. Patient does have chronic anterior abdominal wound and was seen by home care visiting nurse, concerned about wound infection. Otherwise patient denies any fever or chills. No purulent discharge from the wound. Patient states that previously she was on wound VAC. CT of the abdomen pelvis showed subcutaneous organizing fluid collection along the anterior abdominal wall suspicious for seroma versus less likely abscess versus hematoma. Correlate clinically consider ultrasound evaluation. Gastric lap band which appears in appropriate position. Bilateral nonobstructing renal calculi. Small hiatal hernia. Laboratory showed WBC 7.1 hemoglobin 14.3 and platelets 269 Sodium 140 potassium 4.5 chloride 107 bicarb is 24 BUN 15 and creatinine 0.79 and liver enzymes are not elevated. Urinalysis is negative for infection. 03/19/2024 Patient is resting in the bed. Awake alert and oriented x 3. Complains of constipation. Able to tolerate oral diet. Denies any complaints of nausea or vomiting. Patient was seen by general surgery and is planning for or tomorrow. Orders continued on antibiotics involves vancomycin. Laboratory data showed WBC 5.1 hemoglobin 11.8 and platelets 225 sodium 139 potassium 4.1 chloride 110 bicarb is 25 BUN 11 and creatinine 0.71 and blood sugar 100. ID and general surgery is on board. 03/20/2024 Patient is status post incision and drainage of the abdominal wall seroma. Postoperative day 0. Pain is fairly controlled. Patient is manubrial. No nausea vomiting or diarrhea. Tolerating liquids. No cough or sputum production. No chest pain or shortness of breath. Patient will be continued on vancomycin. ID is on board. Laboratory data reviewed. 03/21/2024 Patient is postoperative day 1 status post I&D of infected abdominal wall seroma. Wound cultures were sent. Continued on vancomycin. Patient is nauseous. Denies any chest pain or shortness of breath. Continued on IV hydration with normal saline. No headache or dizziness or lightheadedness. No cough or sputum production. Laboratory data showed WBC 8.2 hemoglobin 11.2 and platelets 214 electrolytes within normal limits. Objective - Vital Signs Vital signs: Vital Signs Temp 98.0 F 03/21/24 20:00 Pulse 70 05/21/24 20:00 Resp 12 03/21/24 20:00 BP 106/68 03/21/24 20:00 Pulse Ox 96 03/21/24 20:00 FiO2 Intake & Output 03/21/24 03/21/24 03/22/24 06:59 18:59 06:59 Intake Total 210 Balance 210 Intake: IV 10 Invasive Line 6 10 Oral 200 Other: Voiding Method Toilet Toilet # Voids 4 2 - Exam PHYSICAL EXAMINATION: Patient is lying in the bed comfortably, no acute distress, awake alert and oriented.. HEENT: Normocephalic. Neck is supple. Pupils reactive. Nostrils clear. Oral cavity is moist. Neck reveals no JVD, carotid bruits, or thyromegaly. CHEST EXAMINATION: Trachea is central. Symmetrical expansion. Lung francois clear to auscultation and percussion. CARDIAC: Normal S1, S2 with no gallops. No murmurs ABDOMEN: Soft. Bowel sounds present. Anterior abdominal wall surgical site is bandaged... No organomegaly. No abdominal bruits. Extremities: reveal no edema. No clubbing or cyanosis Neurologically awake, alert, oriented x3 with well-coordinated movements. No focal deficits noted Skin: No rash or skin lesions. Psychiatric: Coperative. Nonsuicidal Musculoskeletal: No joint swelling or deformity. Normal range of motion. - Labs CBC & Chem 7: 03/21/24 04:13 03/23/24 06:25 Labs: Abnormal Lab Results - Last 24 Hours (Table) 03/21/24 03/21/24 Range/Units 04:13 04:13 RBC 3.86 L (4.10-5.20) X 10*6/uL Hgb 11.2 L (12.0-15.0) g/dL Hct 34.1 L (37.2-46.3) % Eosinophils # 0.59 H (0.04-0.35) X 10*3/uL BUN/Creatinine Ratio 22.71 H (12.00-20.00) Ratio Glucose 137 H (70-110) mg/dL Microbiology - Last 24 Hours (Table) 03/20/24 15:37 Gram Stain - Preliminary Abdomen 03/17/24 22:50 Blood Culture - Preliminary Blood 03/17/24 22:35 Blood Culture - Preliminary Blood Assessment and Plan Assessment: Anterior abdominal wall cellulitis with underlying elevated seroma/abscess. Patient had abdominoplasty recently and also on 3 antibiotic courses as an outpatient. Status post I&D. Postoperative day 1 History of surgery and chronic anterior abdominal wall with the prior wound VAC History of lap band surgery Hypertension Hyperlipidemia GERD History of diverticulitis DVT prophylaxis with heparin subcu Plan: Patient will be continued on gentle IV hydration. Continue with antibiotics in the form of vancomycin. Status post I&D by general surgery. Follow-up culture reports... Continue symptomatic management for nausea and constipation. Continue with pain management and continue home medications and follow-up closely.
--- NOTE | 2024-03-23 12:52 | P.PN ---
Subjective Progress Note Date: 03/22/24 Patient is a 64-year-old female with a past medical history of hypertension, hyperlipidemia, GERD, diverticulitis and prior history of smoking and history of tummy tuck surgery presents to ER with the complaints of abdominal pain. Patient does have chronic anterior abdominal wound and was seen by home care visiting nurse, concerned about wound infection. Otherwise patient denies any fever or chills. No purulent discharge from the wound. Patient states that previously she was on wound VAC. CT of the abdomen pelvis showed subcutaneous organizing fluid collection along the anterior abdominal wall suspicious for seroma versus less likely abscess versus hematoma. Correlate clinically consider ultrasound evaluation. Gastric lap band which appears in appropriate position. Bilateral nonobstructing renal calculi. Small hiatal hernia. Laboratory showed WBC 7.1 hemoglobin 14.3 and platelets 269 Sodium 140 potassium 4.5 chloride 107 bicarb is 24 BUN 15 and creatinine 0.79 and liver enzymes are not elevated. Urinalysis is negative for infection. 03/19/2024 Patient is resting in the bed. Awake alert and oriented x 3. Complains of constipation. Able to tolerate oral diet. Denies any complaints of nausea or vomiting. Patient was seen by general surgery and is planning for or tomorrow. Orders continued on antibiotics involves vancomycin. Laboratory data showed WBC 5.1 hemoglobin 11.8 and platelets 225 sodium 139 potassium 4.1 chloride 110 bicarb is 25 BUN 11 and creatinine 0.71 and blood sugar 100. ID and general surgery is on board. 03/20/2024 Patient is status post incision and drainage of the abdominal wall seroma. Postoperative day 0. Pain is fairly controlled. Patient is manubrial. No nausea vomiting or diarrhea. Tolerating liquids. No cough or sputum production. No chest pain or shortness of breath. Patient will be continued on vancomycin. ID is on board. Laboratory data reviewed. 03/21/2024 Patient is postoperative day 1 status post I&D of infected abdominal wall seroma. Wound cultures were sent. Continued on vancomycin. Patient is nauseous. Denies any chest pain or shortness of breath. Continued on IV hydration with normal saline. No headache or dizziness or lightheadedness. No cough or sputum production. Laboratory data showed WBC 8.2 hemoglobin 11.2 and platelets 214 electrolytes within normal limits. 03/22/2024 Patient is postoperative day 2 status post I&D of the abdominal wound seroma. Currently denies any chest pain or shortness of breath. Was nauseous but improved now. No complaints of headache or dizziness. Patient did have small bowel movement. No fever no chills. Remains on IV vancomycin. Wound cultures are pending. Laboratory data reviewed. Patient is scheduled for PICC line today. Current medications reviewed. Objective - Vital Signs Vital signs: Vital Signs Temp 98.5 F 03/22/24 19:29 Pulse 68 03/22/24 19:29 Resp 17 03/22/24 19:29 BP 134/74 03/22/24 19:29 Pulse Ox 95 03/22/24 19:29 FiO2 Intake & Output 03/22/24 03/22/24 03/23/24 06:59 18:59 06:59 Other: Voiding Method Toilet Toilet Toilet # Voids 2 1 - Exam PHYSICAL EXAMINATION: Patient is lying in the bed comfortably, no acute distress, awake alert and oriented.. HEENT: Normocephalic. Neck is supple. Pupils reactive. Nostrils clear. Oral cavity is moist. Neck reveals no JVD, carotid bruits, or thyromegaly. CHEST EXAMINATION: Trachea is central. Symmetrical expansion. Lung francois clear to auscultation and percussion. CARDIAC: Normal S1, S2 with no gallops. No murmurs ABDOMEN: Soft. Bowel sounds present. Anterior abdominal wall surgical site is bandaged... No organomegaly. No abdominal bruits. Extremities: reveal no edema. No clubbing or cyanosis Neurologically awake, alert, oriented x3 with well-coordinated movements. No focal deficits noted Skin: No rash or skin lesions. Psychiatric: Coperative. Nonsuicidal Musculoskeletal: No joint swelling or deformity. Normal range of motion. - Labs CBC & Chem 7: 03/21/24 04:13 03/23/24 06:25 Labs: Microbiology - Last 24 Hours (Table) 03/20/24 15:37 Gram Stain - Preliminary Abdomen Wound Culture - Preliminary Presumptive MRSA 03/18/24 18:00 Gram Stain - Final Abdomen Wound Culture - Final Methicillin resist S. aureus Assessment and Plan Assessment: Anterior abdominal wall cellulitis with underlying elevated seroma/abscess. Patient had abdominoplasty recently and also on 3 antibiotic courses as an outpatient. Status post I&D. Postoperative day 2 History of surgery and chronic anterior abdominal wall with the prior wound VAC History of lap band surgery Hypertension Hyperlipidemia GERD History of diverticulitis DVT prophylaxis with heparin subcu Plan: Patient will be continued on gentle IV hydration. Continue with antibiotics in the form of vancomycin. Status post I&D by general surgery. Follow-up culture reports... Continue symptomatic management for nausea and constipation. Patient is scheduled for PICC line placement today. Continue with pain management and continue home medications and follow-up closely.
[2024-03-23] MEDS: SENNOSIDES 8.6 MG TAB PO SCH (14:19)
--- NOTE | 2024-03-23 15:46 | P.PN ---
Subjective Progress Note Date: 03/23/24 Principal diagnosis: Infected abdominal wall fluid collection Patient feels better today. She did have episodes of vomiting 3 times yesterday but that has resolved. Mild discomfort. PICC line was placed yesterday. Blood cultures negative. Wound cultures showing MRSA. Objective - Vital Signs Vital signs: Vital Signs Temp 98.3 F 03/23/24 13:30 Pulse 75 03/23/24 13:30 Resp 19 03/23/24 13:30 BP 137/69 03/23/24 13:30 Pulse Ox 96 03/23/24 13:30 FiO2 Intake & Output 03/22/24 03/23/24 03/23/24 18:59 06:59 18:59 Other: Voiding Method Toilet Toilet # Voids 1 2 - Exam Abdomen: Soft, nondistended, wound clean, mild tenderness, no erythema - Labs CBC & Chem 7: 03/21/24 04:13 03/23/24 06:25 Labs: Microbiology - Last 24 Hours (Table) 03/17/24 22:50 Blood Culture - Final Blood 03/17/24 22:35 Blood Culture - Final Blood 03/20/24 15:37 Anaerobic Culture - Preliminary Abdomen 03/20/24 15:37 Gram Stain - Preliminary Abdomen Wound Culture - Preliminary Presumptive MRSA Assessment and Plan (1) Abdominal wall abscess Narrative/Plan: Patient doing better at this time. Continue antibiotics. Plan discharge tomorrow. Begin wound VAC therapy at home. Current Visit: No Status: Acute Code(s): L02.211 - CUTANEOUS ABSCESS OF ABDOMINAL WALL SNOMED Code(s): 18901142
--- NOTE | 2024-03-23 16:49 | P.PN ---
Subjective Progress Note Date: 03/22/24 Principal diagnosis: Reason for follow-up is infected abdominal wall seroma Patient is a 64-year-old female with a past medical history significant for hypertension hyperlipidemia reflux did have a history of infected leg pain port that was subsequent discontinued September 2022 patient did have a revision abdominoplasty, subsequently has developed drainage from the lower incision and has been dealing with a nonhealing wound to the lower abdominal area with outpatient culture positive for MRSA admitted to hospital worsening drainage did have abnormal CT suspicious for seroma versus abscess.Patient is status post I&D of infected abdominal wall seroma complicated on 03/20/2024. On today's evaluation that is 03/22/2024, Patient is afebrile patient is currently on room air and denies having any shortness of breath, the patient denies any chest pain or cough, the patient denies any nausea vomiting abdominal pain is currently controlled no diarrhea. Patient did have a creatinine 0.63 no CBC was done wound culture with MRSA Objective - Vital Signs Vital signs: Vital Signs Temp 98.2 F 03/22/24 07:04 Pulse 62 03/22/24 07:58 Resp 16 03/22/24 07:58 BP 128/75 03/22/24 07:04 Pulse Ox 97 03/22/24 08:41 FiO2 Intake & Output 03/21/24 03/22/24 03/22/24 18:59 06:59 18:59 Intake Total 210 Balance 210 Intake: IV 10 Invasive Line 6 10 Oral 200 Other: Voiding Method Toilet Toilet Toilet # Voids 2 2 - Exam GENERAL DESCRIPTION: An elderly female lying in bed in no distress RESPIRATORY SYSTEM: Unlabored breathing , decreased breath sounds at bases HEART: S1 S2 regular rate and rhythm , ABDOMEN: Soft , lower abdominal wound is dressed EXTREMITIES: No edema feet - Labs CBC & Chem 7: 03/21/24 04:13 03/23/24 06:25 Labs: Microbiology - Last 24 Hours (Table) 03/18/24 18:00 Gram Stain - Final Abdomen Wound Culture - Final Methicillin resist S. aureus 03/20/24 15:37 Gram Stain - Preliminary Abdomen Assessment and Plan (1) Abdominal wall fluid collections Current Visit: Yes Status: Acute Code(s): R18.8 - OTHER ASCITES SNOMED Code(s): 941779776 (2) Abdominal wall abscess Current Visit: No Status: Acute Code(s): L02.211 - CUTANEOUS ABSCESS OF ABDOMINAL WALL SNOMED Code(s): 66565191 (3) Allergy to multiple antibiotics Current Visit: Yes Status: Acute Code(s): Z88.1 - ALLERGY STATUS TO OTHER ANTIBIOTIC AGENTS SNOMED Code(s): 835020469 Plan: 1patient presented to hospital with nonhealing lower abdominal wound and drainage and this patient has been on multiple oral antibiotic in outpatient setting now with more drainage and have evidence of fluid collection on the CT possibly concerning for infected seroma/abscess with outpatient culture positive for MRSA. 2patient is s/p r I&D and drainage of this infected seroma, cultures are currently growing MRSA 3patient to continue vancomycin pharmacy to dose target trough of 15 we will get a PICC line for outpatient IV antibiotic therapy Dictation was produced using [employer] dictation software. please excuse any gramma tical, word or spelling errors. Time with Patient: Less than 30
[2024-03-23 16:50] VITALS: BMI 28.4
--- NOTE | 2024-03-23 16:50 | P.PN ---
Subjective Progress Note Date: 03/23/24 Principal diagnosis: Reason for follow-up is infected abdominal wall seroma Patient is a 64-year-old female with a past medical history significant for hypertension hyperlipidemia reflux did have a history of infected leg pain port that was subsequent discontinued September 2022 patient did have a revision abdominoplasty, subsequently has developed drainage from the lower incision and has been dealing with a nonhealing wound to the lower abdominal area with outpatient culture positive for MRSA admitted to hospital worsening drainage did have abnormal CT suspicious for seroma versus abscess.Patient is status post I&D of infected abdominal wall seroma complicated on 03/20/2024. On today's evaluation that is 03/23/2024, patient has been afebrile, patient is breathing comfortably and is currently on room air, patient denies having any significant cough no chest pain shortness of breath, patient denies nausea vomiting or diarrhea and abdominal pain has decreased in intensity. Patient creatinine 0.70 culture with MRSA Objective - Vital Signs Vital signs: Vital Signs Temp 97.8 F 03/23/24 07:27 Pulse 67 03/23/24 07:27 Resp 18 03/23/24 07:27 BP 116/74 03/23/24 07:27 Pulse Ox 96 03/23/24 07:27 FiO2 Intake & Output 03/22/24 03/23/24 03/23/24 18:59 06:59 18:59 Other: Voiding Method Toilet Toilet # Voids 1 2 - Exam GENERAL DESCRIPTION: An elderly female lying in bed in no distress RESPIRATORY SYSTEM: Unlabored breathing , decreased breath sounds at bases HEART: S1 S2 regular rate and rhythm , ABDOMEN: Soft , lower abdominal wound is dressed EXTREMITIES: No edema feet - Labs CBC & Chem 7: 03/21/24 04:13 03/23/24 06:25 Labs: Microbiology - Last 24 Hours (Table) 03/17/24 22:50 Blood Culture - Final Blood 03/17/24 22:35 Blood Culture - Final Blood 03/20/24 15:37 Anaerobic Culture - Preliminary Abdomen 03/20/24 15:37 Gram Stain - Preliminary Abdomen Wound Culture - Preliminary Presumptive MRSA 03/18/24 18:00 Gram Stain - Final Abdomen Wound Culture - Final Methicillin resist S. aureus Assessment and Plan (1) Abdominal wall fluid collections Current Visit: Yes Status: Acute Code(s): R18.8 - OTHER ASCITES SNOMED Code(s): 819501854 (2) Abdominal wall abscess Current Visit: No Status: Acute Code(s): L02.211 - CUTANEOUS ABSCESS OF ABDOMINAL WALL SNOMED Code(s): 28956179 (3) Allergy to multiple antibiotics Current Visit: Yes Status: Acute Code(s): Z88.1 - ALLERGY STATUS TO OTHER ANTIBIOTIC AGENTS SNOMED Code(s): 475741634 Plan: 1patient presented to hospital with nonhealing lower abdominal wound and drainage and this patient has been on multiple oral antibiotic in outpatient setting now with more drainage and have evidence of fluid collection on the CT possibly concerning for infected seroma/abscess with outpatient culture positive for MRSA. 2patient is s/p r I&D and drainage of this infected seroma, cultures are currently growing MRSA 3patient did get a PICC line plan is for vancomycin pharmacy to dose x 2 weeks on discharge and close outpatient follow-up prescription was sent to the renal case manager Dictation was produced using [employer] dictation software. please excuse any grammatical, word or spelling errors. Time with Patient: Less than 30
--- NOTE | 2024-03-24 16:04 | P.PN ---
Subjective Progress Note Date: 03/24/24 Principal diagnosis: Reason for follow-up is infected abdominal wall seroma Patient is a 64-year-old female with a past medical history significant for hypertension hyperlipidemia reflux did have a history of infected leg pain port that was subsequent discontinued September 2022 patient did have a revision abdominoplasty, subsequently has developed drainage from the lower incision and has been dealing with a nonhealing wound to the lower abdominal area with outpatient culture positive for MRSA admitted to hospital worsening drainage did have abnormal CT suspicious for seroma versus abscess.Patient is status post I&D of infected abdominal wall seroma complicated on 03/20/2024. On today's evaluation that is 03/24/2024,the patient denies any fever or any chills, patient is breathing comfortably on room air, the patient denies chest pain shortness of breath and no significant cough, patient denies any nausea vomiting abdominal pain has decreased no drainage no diarrhea. Patient did have a creatinine 0.70 vancomycin trough at 19.8 culture with MRSA Objective - Vital Signs Vital signs: Vital Signs Temp 98.2 F 03/24/24 07:23 Pulse 74 03/24/24 07:23 Resp 12 03/24/24 07:23 BP 108/71 03/24/24 07:23 Pulse Ox 94 L 03/24/24 07:23 FiO2 Intake & Output 03/23/24 03/24/24 03/24/24 18:59 06:59 18:59 Weight 77.564 kg Other: # Voids 4 2 - Exam GENERAL DESCRIPTION: An elderly female lying in bed in no distress RESPIRATORY SYSTEM: Unlabored breathing , decreased breath sounds at bases HEART: S1 S2 regular rate and rhythm , ABDOMEN: Soft , lower abdominal wound base looks clean no significant slough or surrounding redness or foul-smelling drainage EXTREMITIES: No edema feet - Labs CBC & Chem 7: 03/21/24 04:13 03/23/24 06:25 Labs: Microbiology - Last 24 Hours (Table) 03/20/24 15:37 Gram Stain - Final Abdomen Wound Culture - Final Methicillin resist S. aureus Assessment and Plan (1) Abdominal wall fluid collections Current Visit: Yes Status: Acute Code(s): R18.8 - OTHER ASCITES SNOMED Code(s): 878870576 (2) Abdominal wall abscess Current Visit: No Status: Acute Code(s): L02.211 - CUTANEOUS ABSCESS OF ABDOMINAL WALL SNOMED Code(s): 88845835 (3) Allergy to multiple antibiotics Current Visit: Yes Status: Acute Code(s): Z88.1 - ALLERGY STATUS TO OTHER ANTIBIOTIC AGENTS SNOMED Code(s): 851451306 Plan: 1patient presented to hospital with nonhealing lower abdominal wound and drainage and this patient has been on multiple oral antibiotic in outpatient setting now with more drainage and have evidence of fluid collection on the CT possibly concerning for infected seroma/abscess with outpatient culture positive for MRSA. 2patient is s/p r I&D and drainage of this infected seroma, cultures are curren tly growing MRSA 3patient did get a PICC line plan is for vancomycin pharmacy to dose x 2 weeks on discharge and wound VAC which can be applied impression of the discharge is put on hold today discussed with the nursing staff Dictation was produced using [employer] dictation software. please excuse any grammatical, word or spelling errors. Time with Patient: Less than 30
--- NOTE | 2024-03-24 18:46 | P.PN ---
Subjective Progress Note Date: 03/24/24 Principal diagnosis: Infected abdominal wall fluid collection Patient says she is doing well today. There were initially plans for discharge however apparently the wound VAC was not authorized yet. Patient was anxious about going home without the wound VAC set up. She was asking to stay. No further nausea or vomiting. Wet-to-dry dressing changes ongoing. She is afebrile. Objective - Vital Signs Vital signs: Vital Signs Temp 98.4 F 03/24/24 13:34 Pulse 69 03/24/24 13:34 Resp 18 03/24/24 13:34 BP 132/88 03/24/24 13:34 Pulse Ox 95 03/24/24 13:34 FiO2 Intake & Output 03/23/24 03/24/24 03/24/24 18:59 06:59 18:59 Weight 77.564 kg Other: # Voids 4 2 - Exam Abdomen: Soft, nondistended, wound clean, mild tenderness, no erythema - Labs CBC & Chem 7: 03/21/24 04:13 03/23/24 06:25 Labs: Microbiology - Last 24 Hours (Table) 03/20/24 15:37 Gram Stain - Final Abdomen Wound Culture - Final Methicillin resist S. aureus Assessment and Plan (1) Abdominal wall abscess Narrative/Plan: Patient doing fairly well. Await approval of wound VAC for home discharge. Anticipate discharge tomorrow. Certainly could go home with wet-to-dry dressing changes and arrangement for wound VAC next week. Apparently the patient was anxious about this. Continue antibiotics per infectious disease for MRSA. Current Visit: No Status: Acute Code(s): L02.211 - CUTANEOUS ABSCESS OF ABDOMINAL WALL SNOMED Code(s): 63553757
[2024-03-24] MEDS: PANTOPRAZOLE 40 MG/10 ML VIAL IVP SCH (20:25)
--- NOTE | 2024-03-25 05:57 | P.PN ---
Subjective Progress Note Date: 03/24/24 Patient is a 64-year-old female with a past medical history of hypertension, hyperlipidemia, GERD, diverticulitis and prior history of smoking and history of tummy tuck surgery presents to ER with the complaints of abdominal pain. Patient does have chronic anterior abdominal wound and was seen by home care visiting nurse, concerned about wound infection. Otherwise patient denies any fever or chills. No purulent discharge from the wound. Patient states that previously she was on wound VAC. CT of the abdomen pelvis showed subcutaneous organizing fluid collection along the anterior abdominal wall suspicious for seroma versus less likely abscess versus hematoma. Correlate clinically consider ultrasound evaluation. Gastric lap band which appears in appropriate position. Bilateral nonobstructing renal calculi. Small hiatal hernia. Laboratory showed WBC 7.1 hemoglobin 14.3 and platelets 269 Sodium 140 potassium 4.5 chloride 107 bicarb is 24 BUN 15 and creatinine 0.79 and liver enzymes are not elevated. Urinalysis is negative for infection. 03/19/2024 Patient is resting in the bed. Awake alert and oriented x 3. Complains of constipation. Able to tolerate oral diet. Denies any complaints of nausea or vomiting. Patient was seen by general surgery and is planning for or tomorrow. Orders continued on antibiotics involves vancomycin. Laboratory data showed WBC 5.1 hemoglobin 11.8 and platelets 225 sodium 139 potassium 4.1 chloride 110 bicarb is 25 BUN 11 and creatinine 0.71 and blood sugar 100. ID and general surgery is on board. 03/20/2024 Patient is status post incision and drainage of the abdominal wall seroma. Postoperative day 0. Pain is fairly controlled. Patient is manubrial. No nausea vomiting or diarrhea. Tolerating liquids. No cough or sputum production. No chest pain or shortness of breath. Patient will be continued on vancomycin. ID is on board. Laboratory data reviewed. 03/21/2024 Patient is postoperative day 1 status post I&D of infected abdominal wall seroma. Wound cultures were sent. Continued on vancomycin. Patient is nauseous. Denies any chest pain or shortness of breath. Continued on IV hydration with normal saline. No headache or dizziness or lightheadedness. No cough or sputum production. Laboratory data showed WBC 8.2 hemoglobin 11.2 and platelets 214 electrolytes within normal limits. 03/22/2024 Patient is postoperative day 2 status post I&D of the abdominal wound seroma. Currently denies any chest pain or shortness of breath. Was nauseous but improved now. No complaints of headache or dizziness. Patient did have small bowel movement. No fever no chills. Remains on IV vancomycin. Wound cultures are pending. Laboratory data reviewed. Patient is scheduled for PICC line today. 03/24/2024 Patient is seen and evaluated in follow-up today with general surgery Dr. Finney following. Currently awaiting insurance authorization approval for wound VAC to be arranged along with home care in the outpatient setting. Case management following making arrangements for discharge planning including antibiotics on discharge. Patient has received a PICC line and will continue 2 weeks of antibiotics in the form of vancomycin. Patient continues to report nausea and abdominal discomfort and is extremely concerned with going home with an open wound without the wound VAC as she reports to living almost 2 hours away. Will discuss further with surgery regarding discharge planning and await wound VAC authorization. Review of systems: Constitutional: No reports of fatigue, fever, or chills, reports feeling extremely anxious Cardiovascular: No reports of chest pain or palpitations Respiratory: No reports of shortness of breath or cough GI: reports of nausea, no vomiting, or diarrhea, reports abdominal discomfort : No reports of dysuria or retention Neurovascular: No reports of weakness or numbness All medications have been reviewed PHYSICAL EXAMINATION: Patient is lying in the bed comfortably, reports to feeling nauseated, anxious, awake alert and oriented.. Well-developed HEENT: Normocephalic. Neck is supple. Pupils reactive. Nostrils clear. Oral cavity is moist. Neck reveals no JVD, carotid bruits, or thyromegaly. CHEST EXAMINATION: Trachea is central. Symmetrical expansion. Lung francois clear to auscultation and percussion. CARDIAC: Normal S1, S2 with no gallops. No murmurs ABDOMEN: Soft. Bowel sounds present. Anterior abdominal wall surgical site is bandaged... Tender on palpation, no organomegaly. No abdominal bruits. Extremities: reveal no edema. No clubbing or cyanosis Neurologically awake, alert, oriented x3 with well-coordinated movements. No focal deficits noted Skin: No rash or skin lesions. Psychiatric: Cooperative. Non-suicidal, anxious Musculoskeletal: No joint swelling or deformity. Normal range of motion. Assessment: Anterior abdominal wall cellulitis with underlying elevated seroma/abscess. Patient had abdominoplasty recently and also on 3 antibiotic courses as an outpatient. Status post I&D. Culture showing MRSA Status post PICC line placement History of surgery and chronic anterior abdominal wall with the prior wound VAC History of lap band surgery Hypertension Hyperlipidemia GERD History of diverticulitis DVT prophylaxis with heparin subcu GI prophylaxis Full code Plan: Patient will be continued on gentle IV hydration. Continue with antibiotics in the form of vancomycin. Status post I&D by general surgery. Culture showing MRSA with infectious disease following and is status post PICC line placement and will continue on vancomycin for 2 weeks on discharge. Home care being arranged Case management following and continuing to await for wound VAC authorization for insurance. Home care has been arranged and will follow-up with general surgery outpatient Continue symptomatic management for nausea and constipation. Home medications reviewed and resumed as appropriate Patient will be monitored and awaiting insurance authorization for wound VAC. Patient is extremely anxious to return home without having necessary supplies and fear of developing worsening infection requiring more surgery. Due to multiple complex medical issues, overall prognosis is guarded at this time The impression and plan of care has been dictated by Milana Green, Nurse Practitioner as directed. Dr. Bob MD I have performed a history and examination and MDM of this patient, discussed the same with the dictator, and agree with the dictator's assessment and plan as written ,documented as a scribe. Based on total visit time, I have performed more than 50% of the visit. Objective - Vital Signs Vital signs: Vital Signs Temp 98.4 F 03/24/24 13:34 Pulse 69 03/24/24 13:34 Resp 18 03/24/24 13:34 BP 132/88 03/24/24 13:34 Pulse Ox 95 03/24/24 13:34 FiO2 Intake & Output 03/23/24 03/24/24 03/24/24 18:59 06:59 18:59 Weight 77.564 kg Other: # Voids 4 2 - Labs CBC & Chem 7: 03/21/24 04:13 03/23/24 06:25 Labs: Microbiology - Last 24 Hours (Table) 03/20/24 15:37 Gram Stain - Final Abdomen Wound Culture - Final Methicillin resist S. aureus
[2024-03-25 06:55] LABS: African American GFR (CKD) >90 (>60 ml/min/1.73 sqM); Non-African American GFR(CKD) >90 (>60 ml/min/1.73 sqM)
--- NOTE | 2024-03-25 16:50 | P.PN ---
Subjective patient seen and evaluated at bedside. Very tearful secondary to the appearance of her wound. Patient admits to some abdominal tenderness round postsurgical site denies nausea, vomiting, fevers, chills. Objective - Vital Signs Vital signs: Vital Signs Temp 98.3 F 03/25/24 14:00 Pulse 71 03/25/24 14:00 Resp 16 03/25/24 14:00 BP 119/74 03/25/24 14:00 Pulse Ox 97 03/25/24 14:00 FiO2 Intake & Output 03/24/24 03/25/24 03/25/24 18:59 06:59 18:59 Other: Voiding Method Toilet # Voids 2 - Exam general no acute distress Cardiovascular rate rate rhythm Pulmonary nonlabored breathing Abdomen is soft, tender to palpation in the surgical wound, no guarding or rebound tenderness, no purulent drainage from wound - Labs CBC & Chem 7: 03/21/24 04:13 03/25/24 06:28 Labs: Microbiology - Last 24 Hours (Table) 03/20/24 15:37 Anaerobic Culture - Final Abdomen Assessment and Plan Assessment: 64-year-old female status post postsurgical wound dehiscence Status post panniculectomy IV antibiotics per infectious disease Surgical wound evaluated at bedside, wound VAC placed Time with Patient: Less than 30
--- NOTE | 2024-03-25 20:47 | P.PN ---
Subjective Progress Note Date: 03/25/24 Principal diagnosis: Reason for follow-up is infected abdominal wall seroma Patient is a 64-year-old female with a past medical history significant for hypertension hyperlipidemia reflux did have a history of infected leg pain port that was subsequent discontinued September 2022 patient did have a revision abdominoplasty, subsequently has developed drainage from the lower incision and has been dealing with a nonhealing wound to the lower abdominal area with outpatient culture positive for MRSA admitted to hospital worsening drainage did have abnormal CT suspicious for seroma versus abscess.Patient is status post I&D of infected abdominal wall seroma complicated on 03/20/2024. On today's evaluation that is 03/25/2024,the patient remains to be afebrile, patient is on room air not requiring supplemental oxygen and denies any shortness of breath no chest pain or cough.Patient denies having any nausea or vomiting, abdominal pain is currently controlled and no diarrhea has been reported. Patient did have a creatinine 0.63 no CBC was done today Objective - Vital Signs Vital signs: Vital Signs Temp 97.7 F 03/25/24 00:48 Pulse 83 03/25/24 00:48 Resp 13 03/25/24 00:48 BP 110/71 03/25/24 00:48 Pulse Ox 94 L 03/25/24 00:48 FiO2 Intake & Output 03/24/24 03/25/24 03/25/24 18:59 06:59 18:59 Other: # Voids 2 - Exam GENERAL DESCRIPTION: An elderly female lying in bed in no distress RESPIRATORY SYSTEM: Unlabored breathing , decreased breath sounds at bases HEART: S1 S2 regular rate and rhythm , ABDOMEN: Soft , lower abdominal wound base looks clean no significant slough or surrounding redness or foul-smelling drainage EXTREMITIES: No edema feet - Labs CBC & Chem 7: 03/21/24 04:13 03/25/24 06:28 Labs: Microbiology - Last 24 Hours (Table) 03/20/24 15:37 Anaerobic Culture - Final Abdomen Assessment and Plan (1) Abdominal wall fluid collections Current Visit: Yes Status: Acute Code(s): R18.8 - OTHER ASCITES SNOMED Code(s): 736160216 (2) Abdominal wall abscess Current Visit: No Status: Acute Code(s): L02.211 - CUTANEOUS ABSCESS OF ABDOMINAL WALL SNOMED Code(s): 52625222 (3) Allergy to multiple antibiotics Current Visit: Yes Status: Acute Code(s): Z88.1 - ALLERGY STATUS TO OTHER ANTIBIOTIC AGENTS SNOMED Code(s): 295113688 Plan: 1patient presented to hospital with nonhealing lower abdominal wound and drai nage and this patient has been on multiple oral antibiotic in outpatient setting now with more drainage and have evidence of fluid collection on the CT possibly concerning for infected seroma/abscess with outpatient culture positive for MRSA. 2patient is s/p r I&D and drainage of this infected seroma, cultures are currently growing MRSA 3patient continue with vancomycin pharmacy to dose local wound care with a wound VAC applied by the general surgeon this morning Dictation was produced using [employer] dictation software. please excuse any grammatical, word or spelling errors. Time with Patient: Less than 30
--- NOTE | 2024-03-26 01:48 | PN ---
PROGRESS NOTE DATE OF SERVICE: 03/25/2024 SUBJECTIVE: This is a 64-year-old woman who was admitted with anterior wall abdominal cellulitis and significant abdominal wall wound, had a wound VAC applied at this time. The cultures are showing MRSA. The patient is on IV antibiotics. Wound VAC cannot be arranged over the weekend because of the lack of insurance authorization and holidays. At this time, patient is being closely monitored. PAST MEDICAL HISTORY: Reviewed. REVIEW OF SYSTEMS: 14-point review is negative except as mentioned earlier admission. CURRENT MEDICATIONS: Reviewed include Moville 5 mg dose, rest of medications noted. PHYSICAL EXAMINATION: VITAL SIGNS: Pulse 73, blood pressure 115/78, respirations 16. CHEST: Clear to auscultation. ABDOMEN: Soft. Wound VAC present. NERVOUS SYSTEM: No focal deficit. LABORATORY DATA: Hemoglobin 11.2. Rest of the labs are noted. ASSESSMENT: 1. Anterior abdominal wall cellulitis with underlying elevated seroma abscess, on wound VAC placement. 2. Status post abdominoplasty, recently. 3. MRSA from the wound. 4. Status post PICC line placement. 5. History of previous wound VAC placement. 6. History of lap band surgery. 7. Hypertension. 8. Hyperlipidemia. 9. Multiple complex medical issues. RECOMMENDATIONS AND DISCUSSION: This is a 64-year-old woman presented with multiple complex medical issues. At this time, I would recommend to continue the current management, continue symptomatic treatment, otherwise continue vancomycin. Check vancomycin levels for pharmacy. Continue with wound VAC. Continue with the rest of medications. DVT prophylaxis. Closely monitor with surgery. Prognosis guarded. Further recommendations to follow. MMODL / IJN: [id number] /
[2024-03-26 09:28] LABS: Basophils # (A) 0.09 X 10*3/uL (0.00-0.10); Eosinophils # (A) 0.33 X 10*3/uL (0.04-0.35); Eosinophils % (A) 7.3 %; HCT 36.7 % (37.2-46.3); HGB 11.7 g/dL (12.0-15.0); Immature Grans, Automated 0 %; Lymphocytes # (A) 1.72 X 10*3/uL (0.90-5.00); Lymphocytes % (A) 38.1 %; MCH 27.9 pg (27.0-32.0); MCHC 31.9 g/dL (32.0-37.0); MCV 87.4 FL (80.0-97.0); Mean Platelet Volume 11.5 FL (9.5-12.2); Monocytes # (A) 0.46 X 10*3/uL (0.20-1.00); Monocytes % (A) 10.2 %; NRBC Per 100 WBC 0 X 10*3/uL (0.00-0.01); Neutrophils # (A) 1.91 X 10*3/uL (1.80-7.70); Neutrophils % (A) 42.4 %; Platelet Count 204 X 10*3/uL (140-440); WBC 4.51 X 10*3/uL (4.50-10.00)
[2024-03-26 10:42] LABS: ALT 27 U/L (8-44); AST 28 U/L (13-35); Albumin 3.6 g/dL (3.8-4.9); Alkaline Phosphatase 59 U/L (41-126); BUN/Creat Ratio 16.25 Ratio (12.00-20.00); Calcium 9.3 mg/dL (8.7-10.3); Carbon Dioxide 23.1 mmol/L (21.6-31.8); Chloride 107 mmol/L (96-109); Glucose 106 mg/dL (70-110); Potassium 3.9 mmol/L (3.5-5.5); Sodium 142 mmol/L (135-145); Total Bilirubin 0.3 mg/dL (0.3-1.2); Total Protein 5.6 g/dL (6.2-8.2)
--- NOTE | 2024-03-26 11:01 | P.PN ---
Subjective Progress Note Date: 03/26/24 Principal diagnosis: Infected abdominal wall fluid collection Patient doing well today. No pain. She had an episode of vomiting yesterday. Wound VAC was placed. She is quite happy the wound VAC is there. She is afebrile. Objective - Vital Signs Vital signs: Vital Signs Temp 97.6 F 03/26/24 07:00 Pulse 71 03/26/24 07:00 Resp 15 03/26/24 07:00 BP 95/59 03/26/24 07:00 Pulse Ox 95 03/26/24 07:00 FiO2 Intake & Output 03/25/24 03/26/24 03/26/24 18:59 06:59 18:59 Other: Voiding Method Toilet Toilet Toilet # Voids 2 - Exam Abdomen: Soft, nondistended, wound VAC in place, nontender - Labs CBC & Chem 7: 03/26/24 06:51 03/26/24 06:51 Labs: Abnormal Lab Results - Last 24 Hours (Table) 03/26/24 03/26/24 Range/Units 06:51 06:51 Hgb 11.7 L (12.0-15.0) g/dL Hct 36.7 L (37.2-46.3) % MCHC 31.9 L (32.0-37.0) g/dL Total Protein 5.6 L (6.2-8.2) g/dL Albumin 3.6 L (3.8-4.9) g/dL Assessment and Plan (1) Abdominal wall abscess Narrative/Plan: Continue wound VAC for now. Continue antibiotics. Plan discharge once home wound VAC therapy arranged. Current Visit: No Status: Acute Code(s): L02.211 - CUTANEOUS ABSCESS OF ABDOMINAL WALL SNOMED Code(s): 84830021
[2024-03-26] MEDS: FUROSEMIDE 10 MG/ML 2 ML VIAL IV ONE (12:24)
[2024-03-26] MEDS: VANCOMYCIN TROUGH DUE 1 EACH MISC MISCELLANE ONE (20:23)
[2024-03-26] MEDS: PANTOPRAZOLE 40 MG TABLET PO SCH (20:23)
[2024-03-26] MEDS: VANCOMYCIN 1,250 MG in SODIUM CHLORIDE 0.9% 250 ML IVPB SCH (20:24)
--- NOTE | 2024-03-27 01:25 | PN ---
PROGRESS NOTE DATE OF SERVICE: 03/26/2024 SUBJECTIVE: This is a 64-year-old woman who was admitted with anterior abdominal wound, cellulitis, and had a wound VAC placed. No chest pain. No palpitations. No fever. PHYSICAL EXAMINATION: VITAL SIGNS: Pulse is 71, blood pressure 94/59, and respirations 15. CHEST: No rhonchi. No crackles. ABDOMEN: Soft, status post wound VAC placement. NERVOUS SYSTEM: Nonfocal. LABORATORY DATA: Hemoglobin 11.7. Other labs are noted. ASSESSMENT: 1. Anterior abdominal wall cellulitis with underlying seroma or abscess, status post wound VAC placement. 2. Status post abdominoplasty recently. 3. Methicillin-resistant Staphylococcus aureus from the wound. 4. Status post PICC line placement. 5. History of previous wound VAC placement. 6. History of lap band surgery. 7. Multiple medical issues. RECOMMENDATIONS: Recommend to continue current medications, symptomatic treatment. Repeat labs and single dose of Lasix. Otherwise, arrange wound VAC outpatient per social work. IV antibiotics. Further recommendations to follow. MMODL / IJN: [id number] /
[2024-03-27 09:35] LABS: Basophils # (A) 0.07 X 10*3/uL (0.00-0.10); Basophils % (A) 1.5 %; Eosinophils # (A) 0.34 X 10*3/uL (0.04-0.35); Eosinophils % (A) 7.4 %; HCT 39.6 % (37.2-46.3); HGB 12.5 g/dL (12.0-15.0); Lymphocytes # (A) 1.71 X 10*3/uL (0.90-5.00); Lymphocytes % (A) 37.3 %; MCH 28.7 pg (27.0-32.0); MCHC 31.6 g/dL (32.0-37.0); Mean Platelet Volume 12.2 FL (9.5-12.2); Monocytes # (A) 0.48 X 10*3/uL (0.20-1.00); Monocytes % (A) 10.5 %; NRBC Per 100 WBC 0 X 10*3/uL (0.00-0.01); Neutrophils # (A) 1.98 X 10*3/uL (1.80-7.70); Neutrophils % (A) 43.1 %; Platelet Count 213 X 10*3/uL (140-440); RBC 4.35 X 10*6/uL (4.10-5.20); RDW 14.1 % (11.5-14.5); WBC 4.59 X 10*3/uL (4.50-10.00)
[2024-03-27 09:36] LABS: BUN/Creat Ratio 16.75 Ratio (12.00-20.00); Blood Urea Nitrogen 13.4 mg/dL (9.0-27.0); Calcium 9.2 mg/dL (8.7-10.3); Carbon Dioxide 24.4 mmol/L (21.6-31.8); Chloride 105 mmol/L (96-109); Glucose 93 mg/dL (70-110); Potassium 4.1 mmol/L (3.5-5.5); Sodium 141 mmol/L (135-145)
--- NOTE | 2024-03-27 09:51 | P.PN ---
Subjective Progress Note Date: 03/27/24 Principal diagnosis: Infected abdominal wall fluid collection Patient did well overnight. No nausea or vomiting. Pain is well-controlled. No fevers. Objective - Vital Signs Vital signs: Vital Signs Temp 98.1 F 03/27/24 08:00 Pulse 90 03/27/24 08:00 Resp 17 03/27/24 08:00 BP 123/82 03/27/24 08:00 Pulse Ox 97 03/27/24 08:00 FiO2 Intake & Output 03/26/24 03/27/24 03/27/24 18:59 06:59 18:59 Other: Voiding Method Toilet Toilet # Voids 3 2 - Exam Abdomen: Soft, nondistended, wound VAC in place - Labs CBC & Chem 7: 03/27/24 04:20 03/27/24 04:20 Labs: Abnormal Lab Results - Last 24 Hours (Table) 03/26/24 03/27/24 Range/Units 06:51 04:20 MCHC 31.6 L (32.0-37.0) g/dL Total Protein 5.6 L (6.2-8.2) g/dL Albumin 3.6 L (3.8-4.9) g/dL Assessment and Plan (1) Abdominal wall abscess Narrative/Plan: Patient doing about the same today. Continue wound VAC therapy. Continue antibiotics per infectious disease. Current Visit: No Status: Acute Code(s): L02.211 - CUTANEOUS ABSCESS OF ABDOMINAL WALL SNOMED Code(s): 86101291
--- NOTE | 2024-03-27 18:24 | P.PN ---
Subjective Progress Note Date: 03/27/24 Patient is a 64-year-old female with a past medical history of hypertension, hyperlipidemia, GERD, diverticulitis and prior history of smoking and history of tummy tuck surgery presents to ER with the complaints of abdominal pain. Patient does have chronic anterior abdominal wound and was seen by home care visiting nurse, concerned about wound infection. Otherwise patient denies any fever or chills. No purulent discharge from the wound. Patient states that previously she was on wound VAC. CT of the abdomen pelvis showed subcutaneous organizing fluid collection along the anterior abdominal wall suspicious for seroma versus less likely abscess versus hematoma. Correlate clinically consider ultrasound evaluation. Gastric lap band which appears in appropriate position. Bilateral nonobstructing renal calculi. Small hiatal hernia. Laboratory showed WBC 7.1 hemoglobin 14.3 and platelets 269 Sodium 140 potassium 4.5 chloride 107 bicarb is 24 BUN 15 and creatinine 0.79 and liver enzymes are not elevated. Urinalysis is negative for infection. 03/19/2024 Patient is resting in the bed. Awake alert and oriented x 3. Complains of constipation. Able to tolerate oral diet. Denies any complaints of nausea or vomiting. Patient was seen by general surgery and is planning for or tomorrow. Orders continued on antibiotics involves vancomycin. Laboratory data showed WBC 5.1 hemoglobin 11.8 and platelets 225 sodium 139 potassium 4.1 chloride 110 bicarb is 25 BUN 11 and creatinine 0.71 and blood sugar 100. ID and general surgery is on board. 03/20/2024 Patient is status post incision and drainage of the abdominal wall seroma. Postoperative day 0. Pain is fairly controlled. Patient is manubrial. No nausea vomiting or diarrhea. Tolerating liquids. No cough or sputum production. No chest pain or shortness of breath. Patient will be continued on vancomycin. ID is on board. Laboratory data reviewed. 03/21/2024 Patient is postoperative day 1 status post I&D of infected abdominal wall seroma. Wound cultures were sent. Continued on vancomycin. Patient is nauseous. Denies any chest pain or shortness of breath. Continued on IV hydration with normal saline. No headache or dizziness or lightheadedness. No cough or sputum production. Laboratory data showed WBC 8.2 hemoglobin 11.2 and platelets 214 electrolytes within normal limits. 03/22/2024 Patient is postoperative day 2 status post I&D of the abdominal wound seroma. Currently denies any chest pain or shortness of breath. Was nauseous but improved now. No complaints of headache or dizziness. Patient did have small bowel movement. No fever no chills. Remains on IV vancomycin. Wound cultures are pending. Laboratory data reviewed. Patient is scheduled for PICC line today. 03/24/2024 Patient is seen and evaluated in follow-up today with general surgery Dr. Finney following. Currently awaiting insurance authorization approval for wound VAC to be arranged along with home care in the outpatient setting. Case management following making arrangements for discharge planning including antibiotics on discharge. Patient has received a PICC line and will continue 2 weeks of antibiotics in the form of vancomycin. Patient continues to report nausea and abdominal discomfort and is extremely concerned with going home with an open wound without the wound VAC as she reports to living almost 2 hours away. Will discuss further with surgery regarding discharge planning and await wound VAC authorization. 03/27/2024 Patient is seen in follow-up today continues with with no acute overnight issues noted. Patient reports tolerating diet and maintained on antibiotics and has received a PICC line and plans on IV antibiotics on discharge. Currently awaiting insurance authorization on wound VAC. Unfortunately due to the holiday weekend, authorization was not obtained and case management/social work will be following and will follow-up on authorization on Wednesday. Patient is afebrile with no reports of chest pain or shortness of breath. Patient has been up and encouraged frequent walking. Continue using incentive spirometer at least 10 times every hour while continued pain management. Review of systems: Constitutional: No reports of fatigue, fever, or chills, reports feeling slightly less anxious Cardiovascular: No reports of chest pain or palpitations Respiratory: No reports of shortness of breath or cough GI: reports of nausea, no vomiting, or diarrhea, reports abdominal discomfort : No reports of dysuria or retention Neurovascular: No reports of weakness or numbness All medications have been reviewed PHYSICAL EXAMINATION: Patient is lying in the bed comfortably, reports to feeling nauseated at times, awake alert and oriented.. Well-developed HEENT: Normocephalic. Neck is supple. Pupils reactive. Nostrils clear. Oral cavity is moist. Neck reveals no JVD, carotid bruits, or thyromegaly. CHEST EXAMINATION: Trachea is central. Symmetrical expansion. Lung francois clear to auscultation and percussion. CARDIAC: Normal S1, S2 with no gallops. No murmurs ABDOMEN: Soft. Bowel sounds present. Anterior abdominal wall surgical site wound VAC noted... Tender on palpation, no organomegaly. No abdominal bruits. Extremities: reveal no edema. No clubbing or cyanosis Neurologically awake, alert, oriented x3 with well-coordinated movements. No focal deficits noted Skin: No rash or skin lesions. Psychiatric: Cooperative. Non-suicidal, anxious Musculoskeletal: No joint swelling or deformity. Normal range of motion. Assessment: Anterior abdominal wall cellulitis with underlying elevated seroma/abscess. Patient had abdominoplasty recently and also on 3 antibiotic courses as an outpatient. Status post I&D. Culture showing MRSA Status post PICC line placement History of surgery and chronic anterior abdominal wall with the prior wound VAC History of lap band surgery Hypertension Hyperlipidemia GERD History of diverticulitis DVT prophylaxis with heparin subcu GI prophylaxis Full code Plan: Patient will be continued on gentle IV hydration. Continue with antibiotics in the form of vancomycin. Status post I&D by general surgery. Culture showing MRSA with infectious disease following and is status post PICC line placement and will continue on vancomycin for 2 weeks on discharge. Home care being arranged Case management following and continuing to await for wound VAC authorization for insurance. Home care has been arranged and will follow-up with general surgery outpatient Continue symptomatic management for nausea and constipation. Home medications reviewed and resumed as appropriate Patient will be monitored and awaiting insurance authorization for wound VAC. Patient is extremely anxious to return home without having necessary supplies and fear of developing worsening infection requiring more surgery. Will follow- up with case management in the a.m. regarding wound VAC authorization. Possible discharge planning in the next 24 hours Due to multiple complex medical issues, overall prognosis is guarded at this time The impression and plan of care has been dictated by Milana Green Nurse Practitioner as directed. Dr. Bob MD I have performed a history and examination and MDM of this patient, discussed the same with the dictator, and agree with the dictator's assessment and plan as written ,documented as a scribe. Based on total visit time, I have performed more than 50% of the visit. Objective - Vital Signs Vital signs: Vital Signs Temp 98.4 F 03/27/24 14:35 Pulse 84 05/27/24 14:35 Resp 16 03/27/24 14:35 BP 115/65 03/27/24 14:35 Pulse Ox 98 03/27/24 14:35 FiO2 Intake & Output 03/26/24 03/27/24 03/27/24 18:59 06:59 18:59 Other: Voiding Method Toilet Toilet # Voids 3 2 3 - Labs CBC & Chem 7: 03/27/24 04:20 03/27/24 04:20 Labs: Abnormal Lab Results - Last 24 Hours (Table) 03/27/24 Range/Units 04:20 MCHC 31.6 L (32.0-37.0) g/dL
[2024-03-28 05:23] LABS: African American GFR (CKD) >90 (>60 ml/min/1.73 sqM); Non-African American GFR(CKD) 83 (>60 ml/min/1.73 sqM)
[2024-03-28 07:52] VITALS: BP 100/54; PULSE 69; RESP 16; TEMP 97.5
--- NOTE | 2024-03-28 08:19 | P.PN ---
Subjective Progress Note Date: 03/26/24 Principal diagnosis: Reason for follow-up is infected abdominal wall seroma Patient is a 64-year-old female with a past medical history significant for hypertension hyperlipidemia reflux did have a history of infected leg pain port that was subsequent discontinued September 2022 patient did have a revision abdominoplasty, subsequently has developed drainage from the lower incision and has been dealing with a nonhealing wound to the lower abdominal area with outpatient culture positive for MRSA admitted to hospital worsening drainage did have abnormal CT suspicious for seroma versus abscess.Patient is status post I&D of infected abdominal wall seroma complicated on 03/20/2024. On today's evaluation that is 03/26/2024, the patient continues to be afebrile, the patient is on room air and breathing comfortably, the Pt denies having any chest pain or cough, the patient abdominal pain has decreased intensity no nausea no vomiting or diarrhea. Patient white count is 4.51, creatinine 0.8 Objective - Vital Signs Vital signs: Vital Signs Temp 97.6 F 03/26/24 07:00 Pulse 71 03/26/24 07:00 Resp 15 03/26/24 07:00 BP 95/59 03/26/24 07:00 Pulse Ox 95 03/26/24 07:00 FiO2 Intake & Output 03/25/24 03/26/24 03/26/24 18:59 06:59 18:59 Other: Voiding Method Toilet Toilet Toilet # Voids 2 - Exam GENERAL DESCRIPTION: An elderly female lying in bed in no distress RESPIRATORY SYSTEM: Unlabored breathing , decreased breath sounds at bases HEART: S1 S2 regular rate and rhythm , ABDOMEN: Soft , lower abdominal wound base looks clean no significant slough or surrounding redness or foul-smelling drainage EXTREMITIES: No edema feet - Labs CBC & Chem 7: 03/27/24 04:20 03/28/24 04:24 Labs: Abnormal Lab Results - Last 24 Hours (Table) 03/26/24 Range/Units 06:51 Hgb 11.7 L (12.0-15.0) g/dL Hct 36.7 L (37.2-46.3) % MCHC 31.9 L (32.0-37.0) g/dL Assessment and Plan (1) Abdominal wall fluid collections Current Visit: Yes Status: Acute Code(s): R18.8 - OTHER ASCITES SNOMED Code(s): 510368023 (2) Abdominal wall abscess Current Visit: No Status: Acute Code(s): L02.211 - CUTANEOUS ABSCESS OF ABDOMINAL WALL SNOMED Code(s): 67133142 (3) Allergy to multiple antibiotics Current Visit: Yes Status: Acute Code(s): Z88.1 - ALLERGY STATUS TO OTHER ANTIBIOTIC AGENTS SNOMED Code(s): 613444613 Plan: 1patient presented to hospital with nonhealing lower abdominal wound and drainage and this patient has been on multiple oral antibiotic in outpatient setting now with more drainage and have evidence of fluid collection on the CT possibly concerning for infected seroma/abscess with outpatient culture positive for MRSA. 2patient is s/p r I&D and drainage of this infected seroma, cultures are currently growing MRSA 3patient continue local wound care with wound VAC and continue the vancomycin pharmacy to dose will check her kidney function closely Dictation was produced using [employer] dictation software. please excuse any grammatical, word or spelling errors. Time with Patient: Less than 30
--- NOTE | 2024-03-28 08:20 | P.PN ---
Subjective Progress Note Date: 03/27/24 Principal diagnosis: Reason for follow-up is infected abdominal wall seroma Patient is a 64-year-old female with a past medical history significant for hypertension hyperlipidemia reflux did have a history of infected leg pain port that was subsequent discontinued September 2022 patient did have a revision abdominoplasty, subsequently has developed drainage from the lower incision and has been dealing with a nonhealing wound to the lower abdominal area with outpatient culture positive for MRSA admitted to hospital worsening drainage did have abnormal CT suspicious for seroma versus abscess.Patient is status post I&D of infected abdominal wall seroma complicated on 03/20/2024. On today's evaluation that is 03/27/2024, Patient is afebrile patient is currently on room air and denies having any shortness of breath, the patient denies any chest pain or cough, the patient denies any nausea vomiting abdominal pain has decreased intensity tolerating her wound VAC did mention slight pulling on the right side and no diarrhea. Patient white count is 4.59, creatinine 0.8 Objective - Vital Signs Vital signs: Vital Signs Temp 98.4 F 03/27/24 14:35 Pulse 84 03/27/24 14:35 Resp 16 03/27/24 14:35 BP 115/65 03/27/24 14:35 Pulse Ox 98 03/27/24 14:35 FiO2 Intake & Output 03/26/24 03/27/24 03/27/24 18:59 06:59 18:59 Other: Voiding Method Toilet Toilet # Voids 3 2 3 - Exam GENERAL DESCRIPTION: An elderly female lying in bed in no distress RESPIRATORY SYSTEM: Unlabored breathing , decreased breath sounds at bases HEART: S1 S2 regular rate and rhythm , ABDOMEN: Soft , lower abdominal wound base looks clean no significant slough or surrounding redness or foul-smelling drainage EXTREMITIES: No edema feet - Labs CBC & Chem 7: 03/27/24 04:20 03/28/24 04:24 Labs: Abnormal Lab Results - Last 24 Hours (Table) 03/27/24 Range/Units 04:20 MCHC 31.6 L (32.0-37.0) g/dL Assessment and Plan (1) Abdominal wall fluid collections Current Visit: Yes Status: Acute Code(s): R18.8 - OTHER ASCITES SNOMED Code(s): 064807096 (2) Abdominal wall abscess Current Visit: No Status: Acute Code(s): L02.211 - CUTANEOUS ABSCESS OF ABDOMINAL WALL SNOMED Code(s): 99604844 (3) Allergy to multiple antibiotics Current Visit: Yes Status: Acute Code(s): Z88.1 - ALLERGY STATUS TO OTHER ANTIBIOTIC AGENTS SNOMED Code(s): 194383334 Plan: 1patient presented to hospital with nonhealing lower abdominal wound and drainage and this patient has been on multiple oral antibiotic in outpatient setting now with more drainage and have evidence of fluid collection on the CT possibly concerning for infected seroma/abscess with outpatient culture positive for MRSA. 2patient is s/p r I&D and drainage of this infected seroma, cultures are curr ently growing MRSA 3patient continue local wound care with wound VAC, patient is covered with the vancomycin to continue pharmacy to dose target trough 15 and watch her kidney function closely Dictation was produced using [employer] dictation software. please excuse any grammatical, word or spelling errors. Time with Patient: Less than 30
--- NOTE | 2024-03-28 14:58 | P.PN ---
Subjective Progress Note Date: 03/28/24 CHIEF COMPLAINT: Infected abdominal wall seroma HISTORY OF PRESENT ILLNESS: Patient is postop day #8 status post incision and drainage of infected abdominal wall seroma. Pain is controlled. She denies any nausea or vomiting. She is tolerating diet. She has wound VAC in place. She has received authorization for her wound VAC outpatient. Afebrile. PHYSICAL EXAM: VITAL SIGNS: Reviewed. GENERAL: Well-developed in no acute distress. ABDOMEN: Soft. Nondistended. Wound VAC in place NEUROLOGIC: Alert and oriented. Cranial nerves II through XII grossly intact. ASSESSMENT: 1. Infected abdominal wall seroma status post incision and drainage PLAN: -Patient can be discharged from surgical standpoint -marketing and promotions manager has arranged home care with wound VAC placement outpatient -Discharge antibiotics per infectious disease Physician Fish Salter note has been reviewed by physician. Signing provider agrees with the documented findings, assessment, and plan of care. Objective - Vital Signs Vital signs: Vital Signs Temp 97.5 F L 03/28/24 07:13 Pulse 69 03/28/24 07:13 Resp 16 03/28/24 07:13 BP 100/54 03/28/24 07:13 Pulse Ox 94 L 03/28/24 07:13 FiO2 Intake & Output 03/27/24 03/28/24 03/28/24 18:59 06:59 18:59 Other: Voiding Method Toilet Toilet # Voids 3 4 - Labs CBC & Chem 7: 03/27/24 04:20 03/28/24 04:24
--- NOTE | 2024-03-28 16:59 | P.PN ---
Subjective Progress Note Date: 03/28/24 Principal diagnosis: Reason for follow-up is infected abdominal wall seroma Patient is a 64-year-old female with a past medical history significant for hypertension hyperlipidemia reflux did have a history of infected leg pain port that was subsequent discontinued September 2022 patient did have a revision abdominoplasty, subsequently has developed drainage from the lower incision and has been dealing with a nonhealing wound to the lower abdominal area with outpatient culture positive for MRSA admitted to hospital worsening drainage did have abnormal CT suspicious for seroma versus abscess.Patient is status post I&D of infected abdominal wall seroma complicated on 03/20/2024. On today's evaluation that is 03/28/2024, patient has been afebrile, patient is breathing comfortably and is currently on room air, patient denies having any significant cough no chest pain shortness of breath, patient denies nausea vomiting or diarrhea and no abdominal pain, feeling better. Patient did have a creatinine 0.75 Objective - Vital Signs Vital signs: Vital Signs Temp 97.5 F L 03/28/24 07:13 Pulse 69 03/28/24 07:13 Resp 16 03/28/24 07:13 BP 100/54 03/28/24 07:13 Pulse Ox 94 L 03/28/24 07:13 FiO2 Intake & Output 03/27/24 03/28/24 03/28/24 18:59 06:59 18:59 Other: Voiding Method Toilet Toilet # Voids 3 4 - Exam GENERAL DESCRIPTION: An elderly female lying in bed in no distress RESPIRATORY SYSTEM: Unlabored breathing , decreased breath sounds at bases HEART: S1 S2 regular rate and rhythm , ABDOMEN: Soft , lower abdominal wound base looks clean no significant slough or surrounding redness or foul-smelling drainage EXTREMITIES: No edema feet - Labs CBC & Chem 7: 03/27/24 04:20 03/28/24 04:24 Assessment and Plan (1) Abdominal wall fluid collections Status: Acute Code(s): R18.8 - OTHER ASCITES SNOMED Code(s): 065008636 (2) Abdominal wall abscess Status: Acute Code(s): L02.211 - CUTANEOUS ABSCESS OF ABDOMINAL WALL SNOMED Code(s): 43698053 (3) Allergy to multiple antibiotics Status: Acute Code(s): Z88.1 - ALLERGY STATUS TO OTHER ANTIBIOTIC AGENTS SNOMED Code(s): 130782870 Plan: 1patient presented to hospital with nonhealing lower abdominal wound and drainage and this patient has been on multiple oral antibiotic in outpatient setting now with more drainage and have evidence of fluid collection on the CT possibly concerning for infected seroma/abscess with outpatient culture positive for MRSA. 2patient is s/p I&D and drainage of this infected seroma, cultures are currently growing MRSA 3patient continue with the vancomycin to continue pharmacy to dose target trough 15 x 2-week on discharge and close outpatient follow-up prescription provided Dictation was produced using [employer] dictation software. please excuse any grammatical, word or spelling errors. Time with Patient: Less than 30
== END 2024-03-28 14:35 | disposition home health service (06) | DRG 920 ==
LOC: EC 18:28 → 4SSUR 03-18 04:24
PROVIDERS: ADMIT Hospitalist; ATTEND Hospitalist
PROC: 2W13X6Z Compression of Abdominal Wall using Pressure Dressing (ICD-10-PCS; 2024-03-20)
PROC: 0W9F3ZZ Drainage of Abdominal Wall, Percutaneous Approach (ICD-10-PCS; principal; 2024-03-20 09:15)
PROC: 05HC33Z Insertion of Infusion Device into Left Basilic Vein, Percutaneous Approach (ICD-10-PCS; 2024-03-21)
PROC: 02HV33Z Insertion of Infusion Device into Superior Vena Cava, Percutaneous Approach (ICD-10-PCS; 2024-03-22)
PROC: B5181ZA Fluoroscopy of Superior Vena Cava using Low Osmolar Contrast, Guidance (ICD-10-PCS; 2024-03-22)
PROC: B548ZZA Ultrasonography of Superior Vena Cava, Guidance (ICD-10-PCS; 2024-03-22)
DX: L76.34 Postprocedural seroma of skin and subcutaneous tissue following other procedure (principal); L02.211 Cutaneous abscess of abdominal wall; L03.311 Cellulitis of abdominal wall; T81.43XA Infection following a procedure, organ and space surgical site, initial encounter; R18.8 Other ascites; Z98.84 Bariatric surgery status; Y84.8 Other medical procedures as the cause of abnormal reaction of the patient, or of later complication, without mention of misadventure at the time of the procedure; B95.62 Methicillin resistant Staphylococcus aureus infection as the cause of diseases classified elsewhere; K44.9 Diaphragmatic hernia without obstruction or gangrene; I10 Essential (primary) hypertension; K21.9 Gastro-esophageal reflux disease without esophagitis; E78.5 Hyperlipidemia, unspecified; K59.00 Constipation, unspecified; N20.0 Calculus of kidney; Z79.899 Other long term (current) drug therapy; Z88.0 Allergy status to penicillin; Z86.14 Personal history of Methicillin resistant Staphylococcus aureus infection; Z88.5 Allergy status to narcotic agent; Z88.1 Allergy status to other antibiotic agents
CPT/HCPCS: 36410; 36415; 71045; 74177; 76937; 80048; 80053; 80202; 81001; 82565; 83605; 85025; 87040; 87070; 87075; 87077; 87186; 87205; 87636; 94760; 96365; 96366; 96375; 96376; 99285

== ENCOUNTER → 2024-04-11 | Outpatient (CLI) | payer BC ==
[2024-04-11 13:27] VITALS: BP 124/71; PULSE 123; RESP 16; TEMP 98; BMI 27.9
--- NOTE | 2024-04-11 14:53 | P.BASOAP ---
Subjective Progress Note Date: 04/11/24 Principal diagnosis: Abdominal wound Patient returns after recent hospital stay. Patient had a panniculectomy incision that became infected with a seroma. She underwent incision and drainage. Now at home with wound VAC in place. On antibiotics for MRSA. Has a PICC line in place. Still having pain around the wound VAC site. Objective - Vital Signs Vital signs: Vital Signs Temp 98 F 04/11/24 13:24 Pulse 123 H 04/11/24 13:24 Resp 16 04/11/24 13:24 BP 124/71 04/11/24 13:24 Pulse Ox FiO2 Intake & Output 04/10/24 04/11/24 04/11/24 18:59 06:59 18:59 Weight 78.471 kg - Exam Abdomen: Soft, nondistended, wound present measuring 10 x 4 x 3 cm, some maceration of the skin edges which is tender, no tenderness on the tissues aroun d the outside of the wound itself, no erythema Assessment/Plan (1) Abdominal wall abscess Narrative/Plan: Patient's wound is improving since discharge. Still having some pain. Will refill prescription for [place]. Continue antibiotics per infectious disease. Continue wound VAC. Recommend white foam around the skin edges that are macerated, follow-up 2 weeks. Plan: Date: 04/11/24 Initial Weight: 85.275 kg Initial BMI: 30.3 Current Weight: 78.471 kg Current BMI: 27.9 Type of Surgery: Total Volume in Band: 3.0 Previous Volume: Volume Removed: Volume Added: Band Size:
== END ==
LOC: BARWHC3 12:50
PROVIDERS: ATTEND Surgery
DX: L02.211 Cutaneous abscess of abdominal wall (principal); Z98.890 Other specified postprocedural states; Z88.5 Allergy status to narcotic agent; Z88.0 Allergy status to penicillin; Z88.1 Allergy status to other antibiotic agents
CPT/HCPCS: 99211

== ENCOUNTER → 2024-04-25 | Outpatient (CLI) | payer BC ==
[2024-04-25 14:46] VITALS: BP 155/98; PULSE 91; BMI 27.6
--- NOTE | 2024-04-25 15:32 | P.BASOAP ---
Subjective Progress Note Date: 04/25/24 Principal diagnosis: Morbid obesity Patient returns for reevaluation. She was taken off of her IV antibiotics. Her pain is much less. They are using white foam in addition to the black foam with her wound VAC. Now on doxycycline. No fevers. Wound is smaller. Objective - Vital Signs Vital signs: Vital Signs Temp Pulse 91 04/25/24 14:31 Resp BP 155/98 04/25/24 14:31 Pulse Ox FiO2 Intake & Output 04/24/24 04/25/24 04/25/24 18:59 06:59 18:59 Weight 77.564 kg - Exam Abdomen: Soft, nondistended, wound 9 x 4 x 3 cm, minimal tenderness Assessment/Plan (1) Abdominal wall abscess Narrative/Plan: Patient doing well at this time. Continue local wound care. Recheck 1 month. Plan: Date: 04/25/24 Initial Weight: 85.275 kg Initial BMI: 30.3 Current Weight: 77.564 kg Current BMI: 27.6 Type of Surgery: Total Volume in Band: 3.0 Previous Volume: Volume Removed: Volume Added: Band Size:
== END ==
LOC: BARWHC3 12:55
PROVIDERS: ATTEND Surgery
DX: E66.01 Morbid (severe) obesity due to excess calories (principal); L02.211 Cutaneous abscess of abdominal wall; Z88.5 Allergy status to narcotic agent; Z88.0 Allergy status to penicillin; Z88.1 Allergy status to other antibiotic agents; Z68.27 Body mass index [BMI] 27.0-27.9, adult
CPT/HCPCS: 99214

== ENCOUNTER → 2024-07-13 | Outpatient (CLI) | payer BC ==
--- NOTE | 2024-07-13 08:07 | MM ---
Reason for Exam: Clinical finding. Last mammogram was performed 1 year(s) and 10 month(s) ago. Patient History: Menarche at age 10. First Full-Term at age 17. Hysterectomy at age 22. Postmenopausal. 03/05/2023, US biopsy breast add'l VAD LT on the Left side. 03/05/2023, Benign US biopsy breast VAD LT on the left side. Bilateral Implants. Daughter had breast cancer, age 35. Risk Values: May 5 year model risk: 4.7%. NCI Lifetime model risk: 16.0%. Tissue Density: There are scattered areas of fibroglandular density. Findings: Bilateral breast implants are intact. I do not see evidence for distinct nodule or mass at the site of the clinical concern. Ultrasound is recommended as well as clinical correlation. Bilateral previously sampled calcifications are redemonstrated. No new clusters are seen. Overall Assessment: Incomplete: need additional imaging evaluation, BI-RAD 0 Management: Diagnostic Breast Ultrasound of the left breast. . Results were given to the patient verbally at the time of exam. Patient should continue monthly self-breast exams. A clinical breast exam by your physician is recommended on an annual basis. This exam should not preclude additional follow-up of suspicious palpable abnormalities. Note on May scores and lifetime risk: 1. A May score greater than 3% is considered moderate risk. If this is the case, consider specialist referral to assess eligibility for a risk reducing agent. 2. If overall lifetime risk for the development of breast cancer is 20% or higher, the patient may qualify for future screening with alternating mammogram and breast MRI. Electronically signed and approved by: Camron Powell M.D. Radiologis
--- NOTE | 2024-07-13 09:00 | USB ---
Reason for Exam: Clinical finding. Patient History: Menarche at age 10. First Full-Term at age 17. Hysterectomy at age 22. Postmenopausal. 03/05/2023, US biopsy breast add'l VAD LT on the Left side. 03/05/2023, Benign US biopsy breast VAD LT on the left side. Bilateral Implants. Daughter had breast cancer, age 35. Risk Values: May 5 year model risk: 4.7%. NCI Lifetime model risk: 16.0%. Technique: Method: Targeted. Prior Study Comparison: 09/19/2022 Bilateral Screening Mammogram, [facility]. 02/22/2023 Left MG 3D diag mammo imp w/cad LT, [facility]. 03/05/2023 Left MG diagnostic mammo LT wo CAD., [facility]. Findings: The area of palpable concern of the left breast, the axilla of the left breast and the retroareolar of the left breast were scanned. At the sites of clinical concern there are 2 rather superficial cystic lesions seen at the left 4:00 positions measuring 0.6 x 0.6 cm and 0.3 x 0.4 cm respectively. No solid masses seen.. Overall Assessment: Benign, BI-RAD 2 Management: Screening Mammogram of both breasts in 1 year. A clinical breast exam by your physician is recommended on an annual basis and results should be correlated with mammographic findings. This exam should not preclude additional follow-up of suspicious palpable abnormalities. Results were given to the patient verbally at the time of exam. Electronically signed and approved by: Camron Powell M.D. Radiologis
== END | disposition home or self-care (01) ==
LOC: RADMAMWWP 07:23
PROVIDERS: ATTEND Family Medicine
DX: N63.22 Unspecified lump in the left breast, upper inner quadrant
CPT/HCPCS: 77062; 77066